=== PATIENT | female | born 1960 | race Caucasian/White ===

== ENCOUNTER 2016-10-29 13:46 | Inpatient (IN) ==
--- NOTE | 2016-10-29 16:19 | Orthopedic Consult Note ---
Date of Encounter: 10/29/16 Time of Encounter: 16:00 Assessment and Plan (1) Hip fracture Current Visit: No Status: Acute Patient's last PO intake was 3 beers around 11:15am this morning. Plan for right hip hemiarthroplasty tomorrow pending medical clearance. NPO after midnight tonight. Pain control per hospitalist. Qualifiers: Encounter type: initial encounter Fracture type: closed Laterality: right Qualified Code(s): S72.001A - Fracture of unspecified part of neck of right femur, initial encounter for closed fracture History of Present Illness Chief complaint: right hip pain HPI: Ms. Rao is a 56 year old female who fell this morning around 11am while she was trying to flip her mattress at home. She states she had instant pain in the right hip that has been shooting down leg and constant since that time. She was unable to bear any weight on that leg. States she does have tingling in the right leg as well. She proceeded to crawl to the kitchen and "downed" 3 beers to dull the pain and then called for the ambulance. She states she did hit her head but denies any loss of consciousness. Denies any chest pain, SOB, fever. Past Med Surg Social Fam HX - Past Medical History Medical history: COPD, other Psychiatric history: bipolar, depression - Past Surgical History Surgical History: - Social History Smoking Status: Current every day smoker Smokeless Tobacco Status: No Alcohol use: heavy Drug use: none - Family History Mother Living Status: Medications and Allergies Albuterol Sulfate [Albuterol Inhaler] 2 puff IH Q6HR PRN #1 [email or web address] 06/04/16 [Rx] Allergies No Known Allergies Allergy (Verified 10/29/16 12:27) All Systems Reviewed: A 10-system review of systems was performed and is negative for pertinent findings except as documented above in the HPI. - Constitutional Constitutional: as per HPI - Cardiovascular Cardiovascular: as per HPI - Respiratory Respiratory: as per HPI - Musculoskeletal Musculoskeletal: as per HPI Physical Exam - Constitutional Vitals: Temp Pulse Resp BP Pulse Ox 98.0 F 91 19 133/67 98 10/29/16 13:15 10/29/16 13:15 10/29/16 13:15 10/29/16 13:15 10/29/16 13:15 - Hip right Gait: antalgic ROM: extension: abnormal (No open wounds, ecchymosis or erythema noted to right hip, bilateral legs are almost fully flexed up at hip and knees and patient unable to extend legs without pain, significant pain with gentle palpation to the right hip anterior and lateral aspects. Neurovascularly intact, good dorsiflexion of toes, strong dorsal pedal pulse noted) Results - Labs Labs: All other labs normal. - Diagnostic results Hip x-ray: report reviewed, image reviewed Consult Discharge Plan - Plan Referrals: Kelly Rojas MD [Primary Care Provider] - - Attending Attestation Case and plan of care discussed with supervising physician who was available for all aspects of care.
[2016-10-29] MEDS ORDERED: Naloxone 0.4 MG/ML INJ IVP PRN (17:32)
[2016-10-29] MEDS ORDERED: Ondansetron 4 MG/2 ML VIAL IVP PRN (17:35)
[2016-10-29] MEDS ORDERED: Acetaminophen 325 MG TABLET PO PRN (17:35)
[2016-10-29] MEDS ORDERED: Mag Hydrox/Al Hydrox/Simeth 30 ML UDC PO PRN (17:35)
[2016-10-29] MEDS ORDERED: MOM Conc 10 ML UD.LIQ PO PRN (17:35)
[2016-10-29] MEDS ORDERED: *HR* LORazepam 2 MG/ML VIAL IVP PRN (17:36)
[2016-10-29] MEDS ORDERED: Albuterol 2.5 MG/3 ML NEBULIZER IH PRN (17:38)
[2016-10-29] MEDS ORDERED: MVI, adult with vitamin K 10 ML in 0.9 % Sodium Chloride 1,000 ML IVC ONE (17:39)
--- NOTE | 2016-10-29 17:46 | Internal Med History&Physical ---
<Robert Ramos P - Last Filed: 10/29/16 19:36> Date of Encounter: 10/29/16 Internal Medicine - H&P: HPI History of present illness: Ms. Rao is a 56 year old female Internal Medicine - H&P: Meds Albuterol Sulfate [Albuterol Inhaler] 2 puff IH Q6HR PRN #1 [email or web address] 06/04/16 [Rx] Allergies No Known Allergies Allergy (Verified 10/29/16 12:27) All Systems PM: A 10-system review of systems was performed and is negative for pertinent findings except as documented above in the HPI. - Constitutional Vitals: Temp Pulse Resp BP Pulse Ox 98.0 F 91 19 133/67 98 10/29/16 15:49 10/29/16 15:49 10/29/16 15:49 10/29/16 15:49 10/29/16 15:49 - Attending Attestation I examined this patient and my medical decision-making was reviewed with the PAINTER PLATE/PA/Advanced Practice Nurse/Resident Physician. I agree with the documented findings, disposition and treatment plan as described except to the extent set forth below. <Patricia Patel L - Last Filed: 10/29/16 20:32> Date of Encounter: 10/29/16 Time of Encounter: 17:25 Assessment and Plan (1) Hip fracture Current visit: No Status: Acute Pt fell at home this a.m. while trying to move her mattress. She fell onto her R side and was not able to bear weight immediately. Xray showed mildly displaced intertrochanterl fracture of the proximal R femur. Pt sits in position of comfort with knees drawn to chest. Pain control NPO after midnight for surgery in the a.m. Ortho was consulted by ER physician and has been seen by [facility]. Qualifiers: Encounter type: initial encounter Fracture type: closed Laterality: right Qualified Code(s): S72.001A - Fracture of unspecified part of neck of right femur, initial encounter for closed fracture (2) Fall Current visit: No Status: Chronic Plan as above. Fall precautions. Qualifiers: Encounter type: initial encounter Qualified Code(s): W19.XXXA - Unspecified fall, initial encounter (3) Hyponatremia Current visit: No Status: Acute Pt is being hydrated with 0.9NS and banana bag. Reassess labs in the a.m. (4) Back pain Current visit: No Status: Chronic Chronic back pain. Pain control as above. Qualifiers: Back pain location: low back pain Chronicity: chronic Back pain laterality: midline Qualified Code(s): M54.5 - Low back pain; G89.29 - Other chronic pain (5) COPD (chronic obstructive pulmonary disease) Current visit: No Status: Chronic Pt states that she has both emphysema and chronic bronchitis. No acute exacerbation at this time. Pt states that she is well controlled on home medications. Duonebs Albuterol nebs prn Monitor labs Continuous pulse ox. 02 prn, titrate to maintain pulse ox >92% Qualifiers: COPD type: emphysema Emphysema type: unspecified Qualified Code(s): J43.9 - Emphysema, unspecified (6) Suicidal ideations Current visit: Yes Status: Acute Pt states that she has nothing and has thought in the past that she would be better off . Denies plan. States that she has nothing. 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 1A consulted. (7) Alcoholism /alcohol abuse Current visit: Yes Status: Chronic Pt states that she drinks 3-4 beers daily and can go for 1 day without any, but no longer. Last drink prior to arrival in ED, immediately after fall. CIWA orders started. Internal Medicine - H&P: HPI Chief complaint: Fall, R hip fx Admitted From: Home Plans for Post Hospital Care: Transfer Inp Rehab Fac History of present illness: Ms. Rao is a 56 year old female who lives at home with her with a history of chronic back pain, COPD, ETOH abuse. Pt was trying to move her mattress today when it fell fdc onto the bed, knocking her over into the floor, onto her R side. Pt states that she felt instant pain and had to scoot on her bottom to the kitchen to her phone since she could not bear weight. Pt states that she drank 3 beers when she got to the kitchen before calling her . She drinks 3-4 beers daily for the last 30 years. During exam pt states that she feels hopeless and that she might be better off . She says, "I aint got nothing. I have no income, no license, no car, no family." Pt states that she has thought of killing herself before, but has no plan. 1A was consulted. Past Med Surg Social Fam HX - Past Medical History Medical history: COPD, other Psychiatric history: bipolar, depression - Past Surgical History Surgical History: - Social History Smoking Status: Current every day smoker Smokeless Tobacco Status: No Alcohol use: heavy Drug use: none - Family History Mother Living Status: All Systems PM: A 10-system review of systems was performed and is negative for pertinent findings except as documented above in the HPI. - Constitutional Constitutional: anorexia, falls, weakness, no chills, no excessive sweating, no fatigue, no fever(s) - EENT Eyes: no change in vision - Cardiovascular Cardiovascular ROS IM: no chest pain, no dyspnea, no dyspnea on exertion, no edema, no lightheadedness - Respiratory Respiratory: cough, no dyspnea, no dyspnea on exertion, no wheezing, no pain on inspiration, no chest congestion, no pain with cough - Gastrointestinal Gastrointestinal: no constipation, no diarrhea, no nausea, no vomiting - Genitourinary Genitourinary: no dysuria - Musculoskeletal Musculoskeletal ROS IM: back pain - Integumentary Integumentary IM: no rash - Constitutional Vitals: Temp Pulse Resp BP Pulse Ox 98.0 F 91 19 133/67 98 10/29/16 15:49 10/29/16 15:49 10/29/16 15:49 10/29/16 15:49 10/29/16 15:49 General appearance: Present: cooperative, A&O X 3, pleasant, underweight, answers questions appropriately - Head Head exam: Present: atraumatic, normal inspection - Eye Eye exam: Present: normal appearance, PERRL, conjuntiva pink. Absent: EOMI - ENT ENT exam: Present: mucous membranes moist, normal external ear exam - Neck Neck exam general surgery: Present: normal inspection. Absent: lymphadenopathy , tenderness - Respiratory Respiratory exam: Present: decreased breath sounds, CTAB. Absent: chest wall tenderness, respiratory distress, wheezes - Cardiovascular Cardiovascular exam: Present: RRR, +S1, +S2. Absent: bradycardia, tachycardia - GI/Abdominal GI/Abdominal exam: Present: hyperactive bowel sounds, soft. Absent: tenderness - Extremities Exam Extremities exam: Present: calf tenderness, normal capillary refill, normal inspection, tenderness, warm, radial pulses palpable and symetrical. Absent: cyanotic, mottling, pedal edema Additional comments: Pt has tenderness to R hip, rates 9/10 without movement. Pt has knees drawn to chest in position of comfort, +3 kenyatta pedal pulses.
[2016-10-29] MEDS: *HR* Morphine 2 MG/ML SYRINGE IVP PRN (18:03)
[2016-10-29] MEDS: Ipratropium/Albuterol Neb 3 ML IH SCH (21:36)
[2016-10-30] MEDS: Ipratropium/Albuterol Neb 3 ML IH SCH ×6 (00:06→20:03)
[2016-10-30] MEDS: 0.9 % Sodium Chloride 1,000 ML IVC SCH ×2 (02:29→17:01)
[2016-10-30 04:23] LABS: Basophils % 0.4 %; Eosinophils % 0.6 %; Hematocrit 29.6 % (35.3-44.9); Hemoglobin 9.6 g/dL (11.5-15.4); Immature Granulocytes % 0.4 % (0-4); Lymphocytes # 1.1 K/mcL (0.6-4.6); Lymphocytes % 19.4 %; Mean Corpuscular HGB Conc 32.4 g/dL (31.6-35.5); Mean Corpuscular Hemoglobin 26.7 pg (28.0-33.3); Mean Corpuscular Volume 82.5 fL (83.0-100.0); Mean Platelet Volume 9.2 fL (9.4-12.4); Monocytes # 0.9 K/mcL (0.0-1.3); Monocytes % 15.6 %; Neutrophils # 3.5 K/mcL (1.6-8.9); Platelet Count 215 K/mcL (140-400); Red Blood Count 3.59 M/mcL (3.82-4.97); Red Cell Distribution Width 17.1 % (11.5-14.5); Segmented Neutrophils % 63.6 %
[2016-10-30 04:40] LABS: BUN/Creatinine Ratio 10 (6-26); Carbon Dioxide 20 mEq/L (19-29); Chloride 102 mEq/L (98-109); Glucose 91 mg/dL (70-99); Osmolality,Calculated 267 (280-300); Potassium 3.7 mEq/L (3.5-4.5); Sodium 130 mEq/L (136-145); eGFR For African Americans > 60 (> 60); eGFR For Non-African Americans > 60 (> 60)
[2016-10-30 04:52] LABS: Blood Urea Nitrogen 5 mg/dL (7-20)
[2016-10-30 05:06] LABS: Platelet Estimate Normal (Normal)
[2016-10-30] MEDS: *HR* Morphine 2 MG/ML SYRINGE IVP PRN ×2 (08:30→13:21)
--- NOTE | 2016-10-30 09:20 | Internal Med Progress Note ---
Date of Encounter: 10/30/16 Time of Encounter: 09:16 - Assessment and plan (1) Hip fracture Current Visit: No Status: Acute Assessment and plan: Pt fell at home this a.m. while trying to move her mattress. She fell onto her R side and was not able to bear weight immediately. Xray showed mildly displaced intertrochanterl fracture of the proximal R femur. Pain control, given 2 mg of morphine IV now. denies any cardiac history, denies chest pain or sob. EXG and CXr reviewed..will order coags. rod has low C-P risk for the upcoming surgery. NPO after midnight for surgery in the a.m. will follow ortho recommendations DVT prophylaxis Qualifiers: Encounter type: initial encounter Fracture type: closed Laterality: right Qualified Code(s): S72.001A - Fracture of unspecified part of neck of right femur, initial encounter for closed fracture (2) Suicidal ideations Current Visit: Yes Status: Acute Assessment and plan: none at present (3) Alcoholism /alcohol abuse Current Visit: Yes Status: Chronic Assessment and plan: reports daily alcohol use will order beer to prevent withdrawal. CIWA protocol and ativan prn. (4) COPD (chronic obstructive pulmonary disease) Current Visit: No Status: Chronic Assessment and plan: not in exacebation is not on home oxygen will contnue nebs prn; Qualifiers: COPD type: emphysema Emphysema type: unspecified Qualified Code(s): J43.9 - Emphysema, unspecified (5) Fall Current Visit: No Status: Chronic Assessment and plan: reports that she fell and hit her head. will order CT head, no focal defecits. Qualifiers: Encounter type: initial encounter Qualified Code(s): W19.XXXA - Unspecified fall, initial encounter - Time Spent With Patient 25 - 35 minutes - Subjective Interval history: seen at the bedside, c/o pain at the hip, reports that she did not get anything for pain since last night denies n/v/ confusion, came after fall, does not have any alcohol withdrawal symptoms at this time. planned for sx tomm with ortho - Constitutional Vitals: Temp Pulse Resp BP Pulse Ox 98.4 F 90 16 136/77 95 10/30/16 06:37 10/30/16 06:37 10/30/16 07:33 10/30/16 06:37 10/30/16 07:33 General appearance: Present: cooperative, A&O X 3, pleasant, underweight, answers questions appropriately Exam: - Head Head exam: Present: atraumatic, normal inspection - Eye Eye exam: Present: normal appearance, PERRL, conjuntiva pink. Absent: EOMI - ENT ENT exam: Present: mucous membranes moist, normal external ear exam - Neck Neck exam general surgery: Present: normal inspection. Absent: lymphadenopathy , tenderness - Respiratory Respiratory exam: Present: decreased breath sounds, CTAB. Absent: chest wall tenderness, respiratory distress, wheezes - Cardiovascular Cardiovascular exam: Present: RRR, +S1, +S2. Absent: bradycardia, tachycardia - GI/Abdominal GI/Abdominal exam: Present: hyperactive bowel sounds, soft. Absent: tenderness - Extremities Exam Extremities exam: Present: tenderness right hip, no pedal edema, peripheral pulses symmetrical Absent: cyanotic, mottling, pedal edema Internal Medicine: Result - Labs CBC & Chem 7: 10/30/16 03:52 10/30/16 03:52 Labs: Short CBC 10/30/16 Range/Units 03:52 WBC 5.5 D (4.3-11.1) K/mcL Hgb 9.6 L (11.5-15.4) g/dL Hct 29.6 L (35.3-44.9) % Plt Count 215 (140-400) K/mcL Neutrophils # 3.5 (1.6-8.9) K/mcL BMP 10/30/16 03:52 Sodium 130 L Potassium 3.7 Chloride 102 Carbon Dioxide 20 BUN 5 L Creatinine 0.48 L Glucose 91 Calcium 8.0 L - VTE Documentation of Mechanical Device: Venous foot pump, device Consult Discharge Plan - Plan Referrals: Kelly Rojas MD [Primary Care Provider] -
[2016-10-30] MEDS: Beer can PO SCH ×4 (10:35→21:40)
--- NOTE | 2016-10-30 14:03 | Consult Note ---
Date of Encounter: 10/30/16 Time of Encounter: 13:58 Assessment & Recommendation (1) Alcoholism /alcohol abuse Current visit: Yes Status: Chronic Assessment & Recommendation: Patient may benefit from referral to outpatient counseling focused on alcohol dependence this can be arranged after discharge from the hospital. (2) Adjustment disorder with depressed mood Current visit: Yes Status: Acute Assessment & Recommendation: Patient is not suicidal she denies any intent to self-harm but she admits to feeling depressed at this time in anticipation of surgery and restriction of her mobility afterwards. I recommend a starting patient on a small dose of mirtazapine 15 mg at bedtime benefits and side effects were discussed with the patient and she is agreeable to try. Thank you for your consult and please address any questions History of Present Illness Patient: new to practice Requesting Physician: Arun Baez Reason for consult: Suicidal ideation History of present illness: Ms. Rao is a 56 year old female admitted to the hospital for evaluation treatment of right hip fracture. Patient is scheduled to have surgery. Patient has a history COPD hyponatremia on "abuse and psychiatric consultation was requested for evaluation of suicidal ideation. Patient expressed a sense of hopelessness to one of the nurses after having this fracture and was in extreme pain. But at this time patient continued to deny any intent to harm self and she really that she was having severe pain and feeling frustrated by restriction of her activity in the near future after surgery. Patient elected to stay active to me that she worked in the past as a tool lathe operator and as a "crack for many years that she also has a hobby doing crafts and sewing at home and she enjoyed that. She admits to smoking one and half pack of cigarettes a day and drinking 3-4 beers every day for the past 30 years she denied having any treatments or rehabilitation but she admits to having 2 DUIs the last one was in 2006. She lost her license and cannot drive anymore. She denies any history of treatment for depression and anxiety or counseling. CC: Arun Baez Past Med Surg Social Fam HX - Past Medical History Medical history: COPD, other - Past Psychiatric History Psychiatric history: Reports: no psych history - Past Surgical History Surgical History: - Social History Smoking Status: Current every day smoker Smokeless Tobacco Status: No Alcohol use: heavy Drug use: none - Family History Mother Living Status: Medications & Allergies Albuterol Sulfate [Albuterol Inhaler] 2 puff IH Q6HR PRN #1 [email or web address] 06/04/16 [Rx] Allergies No Known Allergies Allergy (Verified 10/29/16 12:27) Mental Status Exam Patient orientation: Yes Person, Yes Time, Yes Place Level of alertness: Alert Patient appearance: Appropriate, Disheveled, Mal-nourished, Thin Behavior: calm, cooperative Psychomotor activity: Normal Eye contact: Maintains Eye Contact Mood description: Depressed, Anxious, Other (Worry about the upcoming surgery) Affect description: congruent with mood, full range Speech pattern: Normal rate, Normal rhythm, Normal tone Speech volume: Normal Thought process: Linear, Goal Oriented Thought content: No Suicidal ideation, No Homicidal ideation, No Overt delusions Perceptual disturbances: No Auditory hallucinations, No Visual hallucinations Attention span: Capable of Focused Attention Memory description: Grossly Intact Patient reliability: Reliable Historian Intelligence estimate: Average Judgment: Limited Insight: Partial Results - Vital Signs Vital signs: Temp Pulse Resp BP Pulse Ox 98.4 F 81 18 137/70 96 10/30/16 11:08 10/30/16 11:08 10/30/16 11:07 10/30/16 11:08 10/30/16 11:08 - Labs Labs: Laboratory Last Values WBC 5.5 K/mcL (4.3-11.1) D 10/30/16 03:52 RBC 3.59 M/mcL (3.82-4.97) L 10/30/16 03:52 Hgb 9.6 g/dL (11.5-15.4) L 10/30/16 03:52 Hct 29.6 % (35.3-44.9) L 10/30/16 03:52 MCV 82.5 fL (83.0-100.0) L 10/30/16 03:52 MCH 26.7 pg (28.0-33.3) L 10/30/16 03:52 MCHC 32.4 g/dL (31.6-35.5) 10/30/16 03:52 RDW 17.1 % (11.5-14.5) H 10/30/16 03:52 Plt Count 215 K/mcL (140-400) 10/30/16 03:52 MPV 9.2 fL (9.4-12.4) L 10/30/16 03:52 Immature Gran % 0.4 % (0-4) 10/30/16 03:52 Seg Neutrophils % 63.6 % 10/30/16 03:52 Lymphocytes % 19.4 % 10/30/16 03:52 Monocytes % 15.6 % 10/30/16 03:52 Eosinophils % 0.6 % 10/30/16 03:52 Basophils % 0.4 % 10/30/16 03:52 Neutrophils # 3.5 K/mcL (1.6-8.9) 10/30/16 03:52 Lymphocytes # 1.1 K/mcL (0.6-4.6) 10/30/16 03:52 Monocytes # 0.9 K/mcL (0.0-1.3) 10/30/16 03:52 Eosinophils # 0.0 K/mcL (0.0-0.6) 10/30/16 03:52 Basophils # 0.0 K/mcL (0.0-0.2) 10/30/16 03:52 Platelet Estimate Normal (Normal) 10/30/16 03:52 Sodium 130 mEq/L (136-145) L 10/30/16 03:52 Potassium 3.7 mEq/L (3.5-4.5) 10/30/16 03:52 Chloride 102 mEq/L (98-109) 10/30/16 03:52 Carbon Dioxide 20 mEq/L (19-29) 10/30/16 03:52 BUN 5 mg/dL (7-20) L 10/30/16 03:52 Creatinine 0.48 mg/dL (0.57-1.11) L 10/30/16 03:52 Est GFR ( Amer) > 60 (> 60) 10/30/16 03:52 Est GFR (Non-Af Amer) > 60 (> 60) 10/30/16 03:52 BUN/Creatinine Ratio 10 (6-26) 10/30/16 03:52 Glucose 91 mg/dL (70-99) 10/30/16 03:52 Calculated Osmolality 267 (280-300) L 10/30/16 03:52 Calcium 8.0 mg/dL (8.6-10.8) L 10/30/16 03:52 - Impressions Impressions Head CT 10/30/16 09:30 IMPRESSION: No acute intracranial abnormality. D/ / Juany Browne Cha, MD / Juany Browne Cha, MD Interpreting Provider: Juany Browne Cha, MD Consult Discharge Plan - Plan Additional Instructions: From psychiatric standpoint patient is stable and no further consultation recommendations are necessary. She can be discharged when she is medically stable and there is no need to have a sitter. Referrals: Kelly Rojas MD [Primary Care Provider] -
[2016-10-30] MEDS ORDERED: *HR* HYDROmorphone (PF) 1 MG/ML SYRINGE IVP ONE (14:23)
--- NOTE | 2016-10-30 16:18 | Orthopedics Progress Note ---
Date of Encounter: 10/30/16 Time of Encounter: 16:00 - Assessment and Plan (1) Hip fracture Current Visit: No Status: Acute She was not medically cleared in time for surgery today. Plan for right hip hemiarthroplasty tomorrow. NPO after midnight tonight. Continue NWB. Continue pain control per hospitalist. Qualifiers: Encounter type: initial encounter Fracture type: closed Laterality: right Qualified Code(s): S72.001A - Fracture of unspecified part of neck of right femur, initial encounter for closed fracture Subjective Principal diagnosis: Right hip fracture Interval history: Patient states she feels a little better today and pain better controlled now. Denies any events overnight and denies and concerns at this time. Denies calf pain or N/T in legs. Afebrile, NV intact. Objective Vital signs: Vital Signs Temp Pulse Resp BP Pulse Ox 10/30/16 16:12 16 97 10/30/16 15:06 99 F 100 16 109/68 97 10/30/16 11:08 98.4 F 81 137/70 96 10/30/16 11:07 18 96 10/30/16 07:33 16 95 10/30/16 06:37 98.4 F 90 16 136/77 95 10/30/16 05:23 98.5 F 90 16 126/68 95 10/30/16 04:42 94 L 10/30/16 00:32 98.7 F 90 15 147/56 92 L 10/30/16 00:07 16 92 L 10/29/16 19:48 98.5 F 94 16 112/63 95 Intake and Output 10/30/16 10/30/16 10/30/16 07:59 15:59 23:59 Intake Total 240 / 240 Output Total 700 / 700 1000 / 1000 Balance -700 / -700 -760 / -760 Intake: Oral 240 / 240 Output: Catheter 700 / 700 1000 / 1000 Other: Meal Lunch Percent of Meal Consumed 50% - Labs CBC & BMP: 10/30/16 03:52 10/30/16 03:52 Labs: Abnormal lab results RBC 3.59 M/mcL (3.82-4.97) L 10/30/16 03:52 Hgb 9.6 g/dL (11.5-15.4) L 10/30/16 03:52 Hct 29.6 % (35.3-44.9) L 10/30/16 03:52 MCV 82.5 fL (83.0-100.0) L 10/30/16 03:52 MCH 26.7 pg (28.0-33.3) L 10/30/16 03:52 RDW 17.1 % (11.5-14.5) H 10/30/16 03:52 MPV 9.2 fL (9.4-12.4) L 10/30/16 03:52 Sodium 130 mEq/L (136-145) L 10/30/16 03:52 BUN 5 mg/dL (7-20) L 10/30/16 03:52 Creatinine 0.48 mg/dL (0.57-1.11) L 10/30/16 03:52 Calculated Osmolality 267 (280-300) L 10/30/16 03:52 Calcium 8.0 mg/dL (8.6-10.8) L 10/30/16 03:52 - VTE Documentation of Mechanical Device: Venous foot pump, device Consult Discharge Plan - Plan Additional Instructions: From psychiatric standpoint patient is stable and no further consultation recommendations are necessary. She can be discharged when she is medically stable and there is no need to have a sitter. Referrals: Kelly Rojas MD [Primary Care Provider] -
[2016-10-30] MEDS: *HR* HYDROmorphone 2 MG/ML SYRINGE IVP PRN (19:04)
--- NOTE | 2016-10-30 20:02 | Anesthesia Evaluation PreOp ---
Date of Encounter: 10/30/16 Time of Encounter: 20:02 - Past History Planned Operation: Reymundo-Hip Cardiac History: Other (ECHO 05/12/2015 - LVEF 60-65%, No SWMA, No PulmHtn) Pulmonary History: Smoker (1-2ppd x 40yrs), COPD (maintained on Albuterol) [employer] History: Other (BiPolar disorder/Adjustment disorder w/depressed mood. EtOH dependence: 6pk/daily - can't go longer than 1 day without EtOH. [facility] protocol initiated this hospitalization) Other Medical History: Other (HypoNatremia this admission) Anesthesia History: No Prior Anesthetic Complications, Past Anesthesia (C- section) Alcohol Use: heavy (approximately 6pk/daily x 30yrs) Drug use: none Medications and Allergies Albuterol Sulfate [Albuterol Inhaler] 2 puff IH Q6HR PRN #1 hfa.aer.ad 06/04/16 [Rx] Allergies No Known Allergies Allergy (Verified 10/29/16 12:27) - Meds/Allergy Pre-op Review Medications Reviewed: Yes Allergies Reviewed: Yes Beta Blockers on Current Med List: No Anesthesia Results - Labs 10/30/16 03:52 10/30/16 03:52 Laboratory Results WBC 5.5 K/mcL (4.3-11.1) D 10/30/16 03:52 RBC 3.59 M/mcL (3.82-4.97) L 10/30/16 03:52 Hgb 9.6 g/dL (11.5-15.4) L 10/30/16 03:52 Hct 29.6 % (35.3-44.9) L 10/30/16 03:52 MCV 82.5 fL (83.0-100.0) L 10/30/16 03:52 MCH 26.7 pg (28.0-33.3) L 10/30/16 03:52 MCHC 32.4 g/dL (31.6-35.5) 10/30/16 03:52 RDW 17.1 % (11.5-14.5) H 10/30/16 03:52 Plt Count 215 K/mcL (140-400) 10/30/16 03:52 MPV 9.2 fL (9.4-12.4) L 10/30/16 03:52 Immature Gran % 0.4 % (0-4) 10/30/16 03:52 Seg Neutrophils % 63.6 % 10/30/16 03:52 Lymphocytes % 19.4 % 10/30/16 03:52 Monocytes % 15.6 % 10/30/16 03:52 Eosinophils % 0.6 % 10/30/16 03:52 Basophils % 0.4 % 10/30/16 03:52 Neutrophils # 3.5 K/mcL (1.6-8.9) 10/30/16 03:52 Lymphocytes # 1.1 K/mcL (0.6-4.6) 10/30/16 03:52 Monocytes # 0.9 K/mcL (0.0-1.3) 10/30/16 03:52 Eosinophils # 0.0 K/mcL (0.0-0.6) 10/30/16 03:52 Basophils # 0.0 K/mcL (0.0-0.2) 10/30/16 03:52 Platelet Estimate Normal (Normal) 10/30/16 03:52 Sodium 130 mEq/L (136-145) L 10/30/16 03:52 Potassium 3.7 mEq/L (3.5-4.5) 10/30/16 03:52 Chloride 102 mEq/L (98-109) 10/30/16 03:52 Carbon Dioxide 20 mEq/L (19-29) 10/30/16 03:52 BUN 5 mg/dL (7-20) L 10/30/16 03:52 Creatinine 0.48 mg/dL (0.57-1.11) L 10/30/16 03:52 Est GFR ( Amer) > 60 (> 60) 10/30/16 03:52 Est GFR (Non-Af Amer) > 60 (> 60) 10/30/16 03:52 BUN/Creatinine Ratio 10 (6-26) 10/30/16 03:52 Glucose 91 mg/dL (70-99) 10/30/16 03:52 Calculated Osmolality 267 (280-300) L 10/30/16 03:52 Calcium 8.0 mg/dL (8.6-10.8) L 10/30/16 03:[address] 10/30/16 09:30 IMPRESSION: No acute intracranial abnormality. D/ / Juany Browne Cha, MD / Juany Browne Cha, MD Interpreting Provider: Juany Browne Cha, MD - Imaging EKG: image reviewed ([10/29/16] 90 SR, possible LAE, possible RV conduction delay ) Anesthesia Exam Vital Signs Temp Pulse Resp BP Pulse Ox 10/30/16 19:02 98.6 F 96 16 102/59 97 10/30/16 16:12 16 97 10/30/16 15:06 99 F 100 16 109/68 97 10/30/16 11:08 98.4 F 81 137/70 96 10/30/16 11:07 18 96 10/30/16 07:33 16 95 10/30/16 06:37 98.4 F 90 16 136/77 95 10/30/16 05:23 98.5 F 90 16 126/68 95 10/30/16 04:42 94 L 10/30/16 00:32 98.7 F 90 15 147/56 92 L 10/30/16 00:07 16 92 L Intake and Output 10/30/16 10/30/16 10/30/16 07:59 15:59 23:59 Intake Total 1240 / 1240 Output Total 700 / 700 1000 / 1000 Balance -700 / -700 240 / 240 Intake: IV Fluids 1000 / 1000 0.9 % Sodium Chloride 1, 1000 / 1000 000 ML @ 75 mls/hr IVC . [id number] [facility] Rx#: [id number] Oral 240 / 240 Output: Catheter 700 / 700 1000 / 1000 Other: Meal Lunch Percent of Meal Consumed 50% Height: 5'6" Weight: 94# BMI = 15 - HEENT Pupil (Motor): Pupils equal, EOMI Mallampati: II Teeth: Edentulous Oral Opening: Greater than 3 - [employer] LOC: Oriented [employer] Motor: Normal RUE, Normal LUE, Normal RLE, Normal LLE, Normal Face [employer] Sensory: Normal: RUE, LUE, RLE, LLE, Face - Cardiac Rhythm: Regular Murmur: None - Pulmonary Breath Sounds: bilateral Clear Respiratory Effort: Symmetrical Anesthesia Assess/Plan ASA Score: 3 (COPD, Malnutrition/underweight, Bipolar/Anxiety/Depression, Smoker , EtOH abuse/dependency) Modified Dixie Scale for Level of Consciousness: Cooperative, oriented, and tranquil Anesthetic Plan: General Monitoring Plan: Standard Monitors Recovery Plan: PACU Anes Supervising Prov Stmt: Pt seen/evaluated, R&B discussed, questions answered and consent obtained. Marsha Murillo MD
[2016-10-30] MEDS ORDERED: Mirtazapine 15 MG TABLET PO SCH (21:00)
[2016-10-31] MEDS: Ipratropium/Albuterol Neb 3 ML IH SCH ×7 (00:09→23:58)
[2016-10-31] MEDS ORDERED: *HR* OxyCODONE Immed Rel 5 MG TABLET PO ONE (01:22)
[2016-10-31] MEDS ORDERED: *HR* Metoprolol 5 MG/5 ML VIAL IVP ONE (01:23)
[2016-10-31] MEDS: 0.9 % Sodium Chloride 1,000 ML IVC SCH (06:37)
[2016-10-31] MEDS: *HR* HYDROmorphone 2 MG/ML SYRINGE IVP PRN ×2 (06:38→11:24)
[2016-10-31 06:49] LABS: INR 1.2; Prothrombin Time 13.1 Seconds (9.4-12.1)
[2016-10-31 07:02] LABS: BUN/Creatinine Ratio 8 (6-26); Blood Urea Nitrogen 4 mg/dL (7-20); Calcium 7.9 mg/dL (8.6-10.8); Carbon Dioxide 22 mEq/L (19-29); Chloride 105 mEq/L (98-109); Glucose 82 mg/dL (70-99); Osmolality,Calculated 272 (280-300); Potassium 3.7 mEq/L (3.5-4.5); Sodium 133 mEq/L (136-145); eGFR For African Americans > 60 (> 60); eGFR For Non-African Americans > 60 (> 60)
[2016-10-31 07:43] LABS: Basophils % 0.7 %; Eosinophils # 0.1 K/mcL (0.0-0.6); Hematocrit 27.4 % (35.3-44.9); Hemoglobin 8.7 g/dL (11.5-15.4); Immature Granulocytes % 0.2 % (0-4); Lymphocytes # 1.7 K/mcL (0.6-4.6); Lymphocytes % 28.8 %; Mean Corpuscular HGB Conc 31.8 g/dL (31.6-35.5); Mean Corpuscular Hemoglobin 26.4 pg (28.0-33.3); Monocytes % 16.4 %; Neutrophils # 3.1 K/mcL (1.6-8.9); Platelet Count 205 K/mcL (140-400); Red Cell Distribution Width 17.7 % (11.5-14.5); Segmented Neutrophils % 52.9 %
[2016-10-31] MEDS: Beer can PO SCH ×2 (08:17→11:58)
[2016-10-31] MEDS ORDERED: *HR* Metoprolol 5 MG/5 ML VIAL IVP PRN ×2 (09:38→17:24)
[2016-10-31] MEDS ORDERED: *HR* Propofol 200 MG/20 ML VIAL IVP ONE (13:46)
[2016-10-31] MEDS ORDERED: *HR* FentaNYL (PF) 100 MCG/2 ML VIAL ONE (13:46)
[2016-10-31] MEDS ORDERED: *HR* Midazolam HCl 2 MG/2 ML VIAL ONE (13:46)
[2016-10-31] MEDS ORDERED: Lidocaine -MPF 2% 2 ML VIAL ONE (13:48)
[2016-10-31] MEDS ORDERED: *HR* Succinylcholine 200 MG/10 ML VIAL IVP ONE (13:48)
[2016-10-31] MEDS ORDERED: Dexamethasone 4 MG/ML VIAL ONE ×2 (13:48→13:53)
[2016-10-31] MEDS ORDERED: Ondansetron 4 MG/2 ML VIAL ONE (13:48)
[2016-10-31] MEDS ORDERED: *HR* Rocuronium Bromide 50 MG/5 ML VIAL ONE (13:48)
[2016-10-31] MEDS ORDERED: Lidocaine -MPF 4% 5 ML AMPUL ONE (13:49)
[2016-10-31] MEDS ORDERED: *HR* Phenylephrine 10 MG/ML VIAL ONE (14:35)
[2016-10-31] MEDS ORDERED: *HR* HYDROmorphone 2 MG/ML SYRINGE ONE (14:57)
[2016-10-31] MEDS ORDERED: *HR* Morphine 2 MG/ML SYRINGE IVP PRN (15:54)
[2016-10-31] MEDS ORDERED: Ondansetron 4 MG/2 ML VIAL IVP ONE (15:54)
[2016-10-31] MEDS ORDERED: Neostigmine Methylsulfate 3 MG/3 ML SYRINGE ONE (15:58)
--- NOTE | 2016-10-31 16:31 | Operative Note ---
Date of procedure: 10/31/16 Pre-op diagnosis: Right hip femoral neck fracture Post-op diagnosis: same Procedure: Right hip hemiarthroplasty Implants: [place] Omnifit Anesthesia: DANA Surgeon: Frederick Roberson Windows Desktop Support: Rosanna Winters Estimated blood loss (cc): 100 Specimen: To pathology Condition: stable Disposition: PACU Procedure in Detail: The patient received IV antibiotics in the holding area. She was brought to the operating room, sign in was performed. The patient underwent general anesthesia on the hospital bed. She was then transferred to the OR table in supine position. The patient was positioned in the left lateral decubitus position, supported by pelvic supports. Bony prominences of the left lower extremity were well padded. An axillary roll was in positioned. The right lower extremity was then prepped and draped in usual sterile fashion. A timeout was performed. The level of the greater trochanter was palpated, a 10 cm curvilinear posterior incision was made, followed by Bovie dissection. The hip abductor was sharply split in line with its fibers with a curved Berumen scissors, incising the fascia over the gluteus beryl also. The Charnley retractors were then positioned, making sure all not to go too deeply, to protect the sciatic nerve. The bursa over the greater trochanter was excised with Bovie electrocautery. The left hip was then internally rotated, putting the short external rotators on stretch. These were taken down from the insertion point with the Bovie cautery, starting from less of a trochanter and going approximately to the femoral neck. The capsule along the posterior femoral neck and head was then T' ed, giving exposure to the fractured femoral head/neck. This was a very low fracture involving most of the neck. The greater trochanter also had several small splits in the bone would be very soft. None of the fracture lines propagated below the level of the lesser trochanter. The head was then removed with a corkscrew, and cutting the ligamentum teres. The head was measured and a size 45 mm diameter was chosen. The acetabulum was washed out of any bone fragments, and a trial head was placed giving a good fit. Next, the exposed fractured femoral neck was cleaned up with a rongeur, a binder and box builder was then used to remove the lateral bone. The canal finder was then inserted. We then started broaching with a press-fit broaches from the Patience tray. It was decided to use a cemented system as the patient's bone was very soft and she has thin cortices. Starting with the smallest broach, up to cemented 5, then moving up to a cemented 6, keeping the appropriate anteversion. Finally used a cemented size 7. The trial stem was well fixed with no toggling. The broach was then removed. The canal was irrigated out and suctioned. The canal was then prepared with brushes and irrigating it out. A small cement restrictor was then placed some technique. We mixed 2 bags of the [place] medium viscosity cement( with gentamicin) in standard technique. The canal was dried out well. Then pressure injected cement into the canal. The [employer] Omnifit cement stem was then opened, using a 127 degree neck angle and a size 7 cement stem, the implant was positioned in place, making sure to keep the correct anteversion. Once well positioned, we trialed with a 45 mm diameter trial head, and in neutral stem. Stability was checked along with leg length, it was felt that the leg length was short. I then trialed with a +5 mm neck length. The leg lengths felt fairly equal, the patient had good extension of the left lower extremity, is able to flex the hip, adduct, and internally rotated up to 60 degrees before the hip started subluxing out. I also trialed a +10 mm neck length but could not reduce the joint. It was decided to stay with the +5, as we had great stability. The trial components removed. The acetabulum was copiously irrigated with normal saline once again making sure it was well cleaned out. Next the 45 mm unipolar head was opened with a + 5 neck length. This assembled and tapped in place. The hip was reduced, and stability was checked once again. We had good stability. The capsule was then closed with 2-0 FiberWire figure of 8 sutures. The leg was placed on Berumen stand, and the short external rotators were reattached to the bone using the FiberWire. The tensor fascia along with the gluteus fascia was closed with FiberWire [id number] sutures. Once again irrigating the wound with pulse lavage. The deep fat layer was closed with 2-0 Vicryl, subcutaneous tissues with 3-0 Vicryl simple sutures, and finally the skin was closed with thiago. Sterile dressings were applied. A hip abduction wedge was in place between the patient's legs. She was then rolled over into supine position and transferred back onto the hospital bed where she was extubated and taken to the recovery room in stable condition.
--- NOTE | 2016-10-31 16:52 | Internal Med Progress Note ---
Date of Encounter: 10/31/16 Time of Encounter: 16:48 - Assessment and plan (1) Hip fracture Current Visit: No Status: Acute Assessment and plan: Pt fell at home this a.m. while trying to move her mattress. She fell onto her R side and was not able to bear weight immediately. Xray showed mildly displaced intertrochanterl fracture of the proximal R femur. Pain control, changed to dialudid 2 mg iv q4h denies any cardiac history, denies chest pain or sob. surgery today with ortho. will follow ortho recommendations DVT prophylaxis Qualifiers: Encounter type: initial encounter Fracture type: closed Laterality: right Qualified Code(s): S72.001A - Fracture of unspecified part of neck of right femur, initial encounter for closed fracture (2) Suicidal ideations Current Visit: Yes Status: Acute Assessment and plan: none at present (3) Alcoholism /alcohol abuse Current Visit: Yes Status: Chronic Assessment and plan: reports daily alcohol use will order beer to prevent withdrawal. CIWA protocol and ativan prn. (4) COPD (chronic obstructive pulmonary disease) Current Visit: No Status: Chronic Assessment and plan: not in exacebation is not on home oxygen will contnue nebs prn; Qualifiers: COPD type: emphysema Emphysema type: unspecified Qualified Code(s): J43.9 - Emphysema, unspecified (5) Fall Current Visit: No Status: Chronic Assessment and plan: reports that she fell and hit her head. CT head with no acute pathology, no focal defecits. Qualifiers: Encounter type: initial encounter Qualified Code(s): W19.XXXA - Unspecified fall, initial encounter - Time Spent With Patient 25 - 35 minutes - Subjective Interval history: seen at the bedside, c/o pain at the hip, reports that its much better than yesterday. denies n/v/ confusion, came after fall, does not have any alcohol withdrawal symptoms at this time. planned for sx today with ortho - Constitutional Vitals: Temp Pulse Resp BP Pulse Ox 98.4 F 97 18 127/81 94 L 10/31/16 10:10 10/31/16 10:10 10/31/16 11:09 10/31/16 10:10 10/31/16 11:09 General appearance: Present: cooperative, A&O X 3, pleasant, underweight, answers questions appropriately Exam: - Head Head exam: Present: atraumatic, normal inspection - Eye Eye exam: Present: normal appearance, PERRL, conjuntiva pink. Absent: EOMI - ENT ENT exam: Present: mucous membranes moist, normal external ear exam - Neck Neck exam general surgery: Present: normal inspection. Absent: lymphadenopathy , tenderness - Respiratory Respiratory exam: Present: decreased breath sounds, CTAB. Absent: chest wall tenderness, respiratory distress, wheezes - Cardiovascular Cardiovascular exam: Present: RRR, +S1, +S2. Absent: bradycardia, tachycardia - GI/Abdominal GI/Abdominal exam: Present: normal bowel sounds, soft. Absent: tenderness - Extremities Exam Extremities exam: Present: tenderness right hip, no pedal edema, peripheral pulses symmetrical Absent: cyanotic, mottling, pedal edema Internal Medicine: Result - Labs CBC & Chem 7: 10/31/16 06:06 10/31/16 06:06 Labs: Short CBC 10/31/16 Range/Units 06:06 WBC 5.9 (4.3-11.1) K/mcL Hgb 8.7 L (11.5-15.4) g/dL Hct 27.4 L (35.3-44.9) % Plt Count 205 (140-400) K/mcL Neutrophils # 3.1 (1.6-8.9) K/mcL BMP 10/31/16 06:06 Sodium 133 L Potassium 3.7 Chloride 105 Carbon Dioxide 22 BUN 4 L Creatinine 0.48 L Glucose 82 Calcium 7.9 L - ABG Interpretation ABG results: PT/INR, D-dimer PT 13.1 Seconds (9.4-12.1) H 10/31/16 06:06 - VTE Documentation of Mechanical Device: Venous foot pump, device Consult Discharge Plan - Plan Additional Instructions: From psychiatric standpoint patient is stable and no further consultation recommendations are necessary. She can be discharged when she is medically stable and there is no need to have a sitter. Referrals: Kelly Rojas MD [Primary Care Provider] -
--- NOTE | 2016-10-31 17:22 | Anesthesia Evaluation Post Op ---
Date of Encounter: 10/31/16 Time of Encounter: 17:22 - Vital Signs Vital Signs: Last Vital Signs Temp 100.5 F H 10/31/16 16:56 Pulse 87 10/31/16 17:16 Resp 16 10/31/16 17:16 BP 114/70 10/31/16 17:16 Pulse Ox 94 L 10/31/16 17:16 - Lungs Lungs: Clear Ascult./Percussion - Airway Airway: Non-obstructed - Cardiovascular Regular Rate - Mental Status Mental Status: Alert & Oriented, Answers Appropriately - Pain Pain Scale: 2 - Nausea Vomiting Nausea Vomiting: Not Present - Hydration Hydration: Ice chips - Discharge PostOp Status: Transfer Patient to floor
[2016-10-31] MEDS ORDERED: Mag Hydrox/Al Hydrox/Simeth 30 ML UDC PO PRN (17:24)
[2016-10-31] MEDS ORDERED: Naloxone 0.4 MG/ML INJ IVP PRN (17:24)
[2016-10-31] MEDS ORDERED: Ondansetron 4 MG/2 ML VIAL IVP PRN (17:24)
[2016-10-31] MEDS ORDERED: Ringers Solution, Lactated 1,000 ML IVC SCH (17:24)
[2016-10-31] MEDS ORDERED: *HR* HYDROmorphone (PF) 1 MG/ML SYRINGE IVP PRN (17:24)
[2016-10-31] MEDS ORDERED: Albuterol 2.5 MG/3 ML NEBULIZER IH PRN (17:24)
[2016-10-31] MEDS ORDERED: traMADol 50 MG TABLET PO PRN (17:24)
[2016-10-31] MEDS ORDERED: Sennosides 8.6 MG TABLET PO PRN (17:24)
[2016-10-31] MEDS ORDERED: MOM Conc 10 ML UD.LIQ PO PRN (17:24)
[2016-10-31] MEDS ORDERED: *HR* LORazepam 2 MG/ML VIAL IVP PRN (17:24)
[2016-10-31] MEDS ORDERED: Temazepam 15 MG CAPSULE PO PRN (17:24)
[2016-10-31] MEDS: Ascorbic Acid 500 MG TABLET PO SCH (18:19)
[2016-10-31] MEDS: Mirtazapine 15 MG TABLET PO SCH (20:57)
[2016-10-31] MEDS: ceFAZolin 2,000 MG in D5% in Water 100 ML IVPB SCH (23:00)
[2016-11-01] MEDS: Ipratropium/Albuterol Neb 3 ML IH SCH ×6 (04:07→23:16)
[2016-11-01] MEDS: *HR* OxyCODONE Immed Rel 5 MG TABLET PO PRN (05:39)
[2016-11-01] MEDS: ceFAZolin 2,000 MG in D5% in Water 100 ML IVPB SCH (06:53)
[2016-11-01 07:12] LABS: Hematocrit 24.4 % (35.3-44.9); Hemoglobin 7.7 g/dL (11.5-15.4)
[2016-11-01 07:25] LABS: BUN/Creatinine Ratio 9 (6-26); Calcium 7.9 mg/dL (8.6-10.8); Carbon Dioxide 24 mEq/L (19-29); Chloride 102 mEq/L (98-109); Glucose 132 mg/dL (70-99); Osmolality,Calculated 275 (280-300); Potassium 3.2 mEq/L (3.5-4.5); Sodium 133 mEq/L (136-145); eGFR For African Americans > 60 (> 60); eGFR For Non-African Americans > 60 (> 60)
[2016-11-01] MEDS ORDERED: 0.9 % Sodium Chloride 250 ML IVC PRN (07:25)
[2016-11-01 07:30] LABS: Blood Urea Nitrogen 5 mg/dL (7-20)
[2016-11-01] MEDS: Multivit/Ca/Min/Fe/FA 1 TAB TABLET PO SCH (07:59)
[2016-11-01] MEDS: Ascorbic Acid 500 MG TABLET PO SCH ×2 (07:59→16:55)
[2016-11-01] MEDS: Beer can PO SCH ×3 (08:01→16:55)
--- NOTE | 2016-11-01 13:08 | Orthopedics Progress Note ---
Date of Encounter: 11/01/16 Time of Encounter: 12:50 - Assessment and Plan (1) Hip fracture Current Visit: No Status: Acute POD#1 s/p right hip hemiarthroplasty Continue WBAT. Dressings to be changed tomorrow. Continue pain control per hospitalist. Will follow up with Rosanna Winters PA-C in [facility] on 11/15/16 at 10:15am. Qualifiers: Encounter type: initial encounter Fracture type: closed Laterality: right Qualified Code(s): S72.001A - Fracture of unspecified part of neck of right femur, initial encounter for closed fracture Subjective Principal diagnosis: Right hip fracture Interval history: No events overnight. Patient states she has a lot of pain right now in the hip. Nurse just transferred patient to chair for lunch. Currently receiving 1 unit of blood. Denies calf pain or N/T in legs. Afebrile, NV intact. Objective Vital signs: Vital Signs Temp Pulse Resp BP Pulse Ox 11/01/16 11:15 98.2 F 98 18 98/65 98 11/01/16 11:00 97.8 F 103 15 98/64 96 11/01/16 06:49 98.2 F 87 16 99/58 96 11/01/16 04:55 98.7 F 99 16 97/61 92 L 11/01/16 04:08 18 92 L 11/01/16 00:15 98.2 F 96 16 112/67 96 10/31/16 20:36 18 98 10/31/16 20:35 98.0 F 100 16 102/60 10/31/16 19:34 97.9 F 98 14 103/62 97 10/31/16 18:25 98.9 F 100 16 92/61 96 10/31/16 17:55 99.3 F 99 16 92/61 95 10/31/16 17:24 98.5 F 114 15 105/62 94 L 10/31/16 17:16 87 16 114/70 94 L 10/31/16 17:06 95 16 137/62 95 10/31/16 16:56 100.5 F H 86 16 117/64 92 L 10/31/16 16:46 94 16 140/73 93 L 10/31/16 16:36 98 16 133/78 98 10/31/16 16:26 99.1 F 97 16 137/73 96 Intake and Output 10/31/16 11/01/16 11/01/16 23:59 07:59 15:59 Intake Total 100 / 100 0 / 0 Output Total 100 / 100 1800 / 1800 Balance -100 / -100 -1700 / -1700 0 / 0 Intake: IV Fluids 100 / 100 Ancef 2,000 MG In 100 / 100 Dextrose 5% 100 ML @ 200 mls/hr IVPB Q8H [facility] Rx#: [id number] Blood Product 0 / 0 Rbcs Leuko Poor As-1 0 / 0 Unit [id number] Output: Estimated Blood Loss 100 / 100 Catheter 1800 / 1800 Incision: clean and dry (dressings clean, dry, intact. no drainage on dressings) - Labs CBC & BMP: 11/01/16 06:20 11/01/16 06:20 Labs: Abnormal lab results RBC 3.30 M/mcL (3.82-4.97) L 10/31/16 06:06 Hgb 7.7 g/dL (11.5-15.4) L 11/01/16 06:20 Hct 24.4 % (35.3-44.9) L 11/01/16 06:20 MCH 26.4 pg (28.0-33.3) L 10/31/16 06:06 RDW 17.7 % (11.5-14.5) H 10/31/16 06:06 MPV 9.0 fL (9.4-12.4) L 10/31/16 06:06 PT 13.1 Seconds (9.4-12.1) H 10/31/16 06:06 Sodium 133 mEq/L (136-145) L 11/01/16 06:20 Potassium 3.2 mEq/L (3.5-4.5) L 11/01/16 06:20 BUN 5 mg/dL (7-20) L 11/01/16 06:20 Creatinine 0.54 mg/dL (0.57-1.11) L 11/01/16 06:20 Glucose 132 mg/dL (70-99) H 11/01/16 06:20 POC Glucose 97 (58-89) H 10/31/16 11:25 Calculated Osmolality 275 (280-300) L 11/01/16 06:20 Calcium 7.9 mg/dL (8.6-10.8) L 11/01/16 06:20 - VTE Documentation of Mechanical Device: Venous foot pump, device Consult Discharge Plan - Plan Additional Instructions: From psychiatric standpoint patient is stable and no further consultation recommendations are necessary. She can be discharged when she is medically stable and there is no need to have a sitter. Referrals: Kelly Rojas MD [Primary Care Provider] -
--- NOTE | 2016-11-01 16:27 | Internal Med Progress Note ---
Date of Encounter: 11/01/16 Time of Encounter: 16:25 - Assessment and plan (1) Hip fracture Current Visit: No Status: Acute Assessment and plan: POD#1 Pain adequately controlled. will follow ortho recommendations DVT prophylaxis bedside rehab, planned to go to home with HH. Qualifiers: Encounter type: initial encounter Fracture type: closed Laterality: right Qualified Code(s): S72.001A - Fracture of unspecified part of neck of right femur, initial encounter for closed fracture (2) Suicidal ideations Current Visit: Yes Status: Acute Assessment and plan: none at present (3) Alcoholism /alcohol abuse Current Visit: Yes Status: Chronic Assessment and plan: reports daily alcohol use will order beer to prevent withdrawal. CIWA protocol and ativan prn. (4) COPD (chronic obstructive pulmonary disease) Current Visit: No Status: Chronic Assessment and plan: not in exacebation is not on home oxygen will contnue nebs prn; Qualifiers: COPD type: emphysema Emphysema type: unspecified Qualified Code(s): J43.9 - Emphysema, unspecified (5) Fall Current Visit: No Status: Chronic Assessment and plan: reports that she fell and hit her head. CT head with no acute pathology, no focal defecits. Qualifiers: Encounter type: initial encounter Qualified Code(s): W19.XXXA - Unspecified fall, initial encounter - Time Spent With Patient 25 - 35 minutes - Subjective Interval history: seen at the bedside, c/o pain at the hip, s/p total hip replacement, POD #1 denies n/v/ confusion, came after fall, does not have any alcohol withdrawal symptoms at this time. orto following for post OP care. - Constitutional Vitals: Temp Pulse Resp BP Pulse Ox 98.0 F 110 18 135/73 97 11/01/16 14:45 11/01/16 14:45 11/01/16 14:45 11/01/16 14:45 11/01/16 14:45 General appearance: Present: cooperative, A&O X 3, pleasant, underweight, answers questions appropriately Exam: - Head Head exam: Present: atraumatic, normal inspection - Eye Eye exam: Present: normal appearance, PERRL, conjuntiva pink. Absent: EOMI - ENT ENT exam: Present: mucous membranes moist, normal external ear exam - Neck Neck exam general surgery: Present: normal inspection. Absent: lymphadenopathy , tenderness - Respiratory Respiratory exam: Present: decreased breath sounds, CTAB. Absent: chest wall tenderness, respiratory distress, wheezes - Cardiovascular Cardiovascular exam: Present: RRR, +S1, +S2. Absent: bradycardia, tachycardia - GI/Abdominal GI/Abdominal exam: Present: normal bowel sounds, soft. Absent: tenderness - Extremities Exam Extremities exam: Present: tenderness right hip, no pedal edema, peripheral pulses symmetrical Absent: cyanotic, mottling, pedal edema Internal Medicine: Result - Labs CBC & Chem 7: 11/01/16 06:20 11/01/16 06:20 Labs: Short CBC 11/01/16 Range/Units 06:20 Hgb 7.7 L (11.5-15.4) g/dL Hct 24.4 L (35.3-44.9) % BMP 11/01/16 06:20 Sodium 133 L Potassium 3.2 L Chloride 102 Carbon Dioxide 24 BUN 5 L Creatinine 0.54 L Glucose 132 H Calcium 7.9 L - ABG Interpretation ABG results: PT/INR, D-dimer PT 13.1 Seconds (9.4-12.1) H 10/31/16 06:06 - Impressions Impressions Hip X-Ray 10/31/16 17:02 IMPRESSION: Status post right hip hemiarthroplasty for treatment of a varus angulated comminuted fracture of proximal right femur. D/ / 10/31/2016 17:15:31 Ian Eid MD / [facility] Interpreting Provider: Ian Eid MD - VTE Documentation of Mechanical Device: Venous foot pump, device Consult Discharge Plan - Plan Additional Instructions: From psychiatric standpoint patient is stable and no further consultation recommendations are necessary. She can be discharged when she is medically stable and there is no need to have a sitter. Referrals: Kelly Rojas MD [Primary Care Provider] -
--- NOTE | 2016-11-01 17:20 | Electrocardiograph Report ---
[address] [place] [address] Test Date: 2016-10-31 Pat Name: Pam Rao Department: 114 Room: [facility] Gender: F Bit Setter: : 1960 Requested By: Arun Baez Order Number: [id number] Reading MD: Karen Andres Measurements Intervals [place] Rate: 93 P: 59 WV: 173 QRS: 62 QRSD: 86 T: 56 QT: 328 QTc: 379 Interpretive Statements SINUS RHYTHM SEPTAL MYOCARDIAL INFARCTION, OF INDETERMINATE AGE Electronically Signed On 11-01-2016 17:18:51 EST by Karen Andres
[2016-11-01] MEDS: *HR* OxyCODONE/APAP 5/325 TABLET PO PRN (21:33)
[2016-11-01] MEDS: Mirtazapine 15 MG TABLET PO SCH (21:34)
[2016-11-01] MEDS: *HR* Enoxaparin 30 MG/0.3 ML SYRINGE SQ SCH (21:34)
[2016-11-02] MEDS: Ipratropium/Albuterol Neb 3 ML IH SCH ×5 (03:44→20:05)
[2016-11-02 04:58] LABS: Hematocrit 28.4 % (35.3-44.9)
[2016-11-02 05:02] LABS: Hemoglobin 9.5 g/dL (11.5-15.4)
[2016-11-02 05:15] LABS: BUN/Creatinine Ratio 12 (6-26); Blood Urea Nitrogen 6 mg/dL (7-20); Calcium 7.9 mg/dL (8.6-10.8); Carbon Dioxide 22 mEq/L (19-29); Chloride 105 mEq/L (98-109); Glucose 89 mg/dL (70-99); Osmolality,Calculated 275 (280-300); Potassium 3.9 mEq/L (3.5-4.5); Sodium 134 mEq/L (136-145); eGFR For African Americans > 60 (> 60); eGFR For Non-African Americans > 60 (> 60)
[2016-11-02] MEDS: *HR* Enoxaparin 30 MG/0.3 ML SYRINGE SQ SCH ×2 (05:50→17:27)
[2016-11-02] MEDS: *HR* OxyCODONE/APAP 5/325 TABLET PO PRN (05:50)
[2016-11-02] MEDS: Multivit/Ca/Min/Fe/FA 1 TAB TABLET PO SCH (09:08)
[2016-11-02] MEDS: Ascorbic Acid 500 MG TABLET PO SCH ×2 (09:08→17:27)
[2016-11-02] MEDS: Beer can PO SCH ×3 (09:08→17:51)
[2016-11-02] MEDS: *HR* OxyCODONE Immed Rel 5 MG TABLET PO PRN ×2 (09:11→17:29)
--- NOTE | 2016-11-02 12:21 | Internal Med Progress Note ---
Date of Encounter: 11/02/16 Time of Encounter: 12:19 - Assessment and plan (1) Hip fracture Current Visit: No Status: Acute Assessment and plan: POD#2 Pain adequately controlled. will follow ortho recommendations DVT prophylaxis bedside rehab, awaiting social work for dc plan. Qualifiers: Encounter type: initial encounter Fracture type: closed Laterality: right Qualified Code(s): S72.001A - Fracture of unspecified part of neck of right femur, initial encounter for closed fracture (2) Suicidal ideations Current Visit: Yes Status: Acute Assessment and plan: none at present (3) Alcoholism /alcohol abuse Current Visit: Yes Status: Chronic Assessment and plan: reports daily alcohol use will order beer to prevent withdrawal. CIWA protocol and ativan prn. (4) COPD (chronic obstructive pulmonary disease) Current Visit: No Status: Chronic Assessment and plan: not in exacebation is not on home oxygen will contnue nebs prn; Qualifiers: COPD type: emphysema Emphysema type: unspecified Qualified Code(s): J43.9 - Emphysema, unspecified (5) Fall Current Visit: No Status: Chronic Assessment and plan: reports that she fell and hit her head. CT head with no acute pathology, no focal defecits. Qualifiers: Encounter type: initial encounter Qualified Code(s): W19.XXXA - Unspecified fall, initial encounter - Time Spent With Patient 25 - 35 minutes - Subjective Interval history: seen at the bedside, c/o pain at the hip, s/p total hip replacement, POD #2 denies n/v/ confusion, came after fall, does not have any alcohol withdrawal symptoms at this time. orto following for post OP care. - Constitutional Vitals: Temp Pulse Resp BP Pulse Ox 98.8 F 97 18 130/77 98 11/02/16 06:21 11/02/16 06:21 11/02/16 10:48 11/02/16 10:48 11/02/16 10:48 General appearance: Present: cooperative, A&O X 3, pleasant, underweight, answers questions appropriately Exam: - Head Head exam: Present: atraumatic, normal inspection - Eye Eye exam: Present: normal appearance, PERRL, conjuntiva pink. Absent: EOMI - ENT ENT exam: Present: mucous membranes moist, normal external ear exam - Neck Neck exam general surgery: Present: normal inspection. Absent: lymphadenopathy , tenderness - Respiratory Respiratory exam: Present: decreased breath sounds, CTAB. Absent: chest wall tenderness, respiratory distress, wheezes - Cardiovascular Cardiovascular exam: Present: RRR, +S1, +S2. Absent: bradycardia, tachycardia - GI/Abdominal GI/Abdominal exam: Present: normal bowel sounds, soft. Absent: tenderness - Extremities Exam Extremities exam: Present: tenderness right hip, no pedal edema, peripheral pulses symmetrical Absent: cyanotic, mottling, pedal edema Internal Medicine: Result - Labs CBC & Chem 7: 11/02/16 04:23 11/02/16 04:23 Labs: Short CBC 11/02/16 Range/Units 04:23 Hgb 9.5 L D (11.5-15.4) g/dL Hct 28.4 L (35.3-44.9) % BMP 11/02/16 04:23 Sodium 134 L Potassium 3.9 Chloride 105 Carbon Dioxide 22 BUN 6 L Creatinine 0.49 L Glucose 89 Calcium 7.9 L - ABG Interpretation ABG results: PT/INR, D-dimer PT 13.1 Seconds (9.4-12.1) H 10/31/16 06:06 - VTE Documentation of Mechanical Device: Venous foot pump, device Consult Discharge Plan - Plan Additional Instructions: From psychiatric standpoint patient is stable and no further consultation recommendations are necessary. She can be discharged when she is medically stable and there is no need to have a sitter. Referrals: Kelly Rojas MD [Primary Care Provider] -
--- NOTE | 2016-11-02 13:03 | Orthopedics Progress Note ---
Date of Encounter: 11/02/16 Time of Encounter: 13:01 - Assessment and Plan (1) Hip fracture Current Visit: No Status: Acute Postoperative day #2, status post right hip arthroplasty, stable Discharge planning, preferably to rehabilitation based on PT recommendations DVT prophylaxis: 2 more weeks of Lovenox, followed by 4 weeks of aspirin Continue OT/PT Continue hip precautions Qualifiers: Encounter type: initial encounter Fracture type: closed Laterality: right Qualified Code(s): S72.001A - Fracture of unspecified part of neck of right femur, initial encounter for closed fracture Subjective Principal diagnosis: Right hip fracture Interval history: Patient has complaints of mild soreness to her right hip Patient has been ambulating with therapy Right hip: Dressings are clean dry and intact Bilateral calves are soft and nontender The risk intact distally Objective Vital signs: Vital Signs Temp Pulse Resp BP Pulse Ox 11/02/16 10:48 18 130/77 98 11/02/16 08:18 16 98 11/02/16 08:17 98 11/02/16 06:21 98.8 F 97 18 130/77 95 11/02/16 04:36 98.3 F 99 20 123/73 98 11/02/16 03:44 18 96 11/02/16 00:19 97.7 F 96 18 123/69 98 11/01/16 23:16 18 98 11/01/16 20:15 18 94 L 11/01/16 19:45 99.1 F 108 18 90/56 96 11/01/16 17:09 14 99 11/01/16 16:45 98.1 F 107 18 134/77 96 11/01/16 14:45 98.0 F 110 18 135/73 97 11/01/16 14:30 97.8 F 110 17 94/49 97 11/01/16 13:45 97.8 F 110 17 94/49 Intake and Output 11/01/16 11/02/16 11/02/16 23:59 07:59 15:59 Intake Total 950 / 950 240 / 240 Output Total 200 / 200 700 / 700 Balance 750 / 750 -700 / -700 240 / 240 Intake: Oral 600 / 600 240 / 240 Blood Product 350 / 350 Rbcs Leuko Poor As-1 350 / 350 Unit [id number] Output: Urine 200 / 200 700 / 700 Other: Meal Dinner Breakfast Percent of Meal Consumed 75% 100% Incision: clean and dry - Labs CBC & BMP: 11/02/16 04:23 11/02/16 04:23 Labs: Abnormal lab results RBC 3.30 M/mcL (3.82-4.97) L 10/31/16 06:06 Hgb 9.5 g/dL (11.5-15.4) L D 11/02/16 04:23 Hct 28.4 % (35.3-44.9) L 11/02/16 04:23 MCH 26.4 pg (28.0-33.3) L 10/31/16 06:06 RDW 17.7 % (11.5-14.5) H 10/31/16 06:06 MPV 9.0 fL (9.4-12.4) L 10/31/16 06:06 PT 13.1 Seconds (9.4-12.1) H 10/31/16 06:06 Sodium 134 mEq/L (136-145) L 11/02/16 04:23 BUN 6 mg/dL (7-20) L 11/02/16 04:23 Creatinine 0.49 mg/dL (0.57-1.11) L 11/02/16 04:23 POC Glucose 97 (58-89) H 10/31/16 11:25 Calculated Osmolality 275 (280-300) L 11/02/16 04:23 Calcium 7.9 mg/dL (8.6-10.8) L 11/02/16 04:23 - VTE Documentation of Mechanical Device: Venous foot pump, device Consult Discharge Plan - Plan Additional Instructions: From psychiatric standpoint patient is stable and no further consultation recommendations are necessary. She can be discharged when she is medically stable and there is no need to have a sitter. Referrals: Kelly Rojas MD [Primary Care Provider] -
[2016-11-02] MEDS: Mirtazapine 15 MG TABLET PO SCH (21:24)
[2016-11-03] MEDS: Ipratropium/Albuterol Neb 3 ML IH SCH ×5 (04:15→20:28)
[2016-11-03] MEDS: *HR* Enoxaparin 30 MG/0.3 ML SYRINGE SQ SCH ×2 (05:39→17:42)
[2016-11-03] MEDS: *HR* OxyCODONE Immed Rel 5 MG TABLET PO PRN ×3 (08:35→21:17)
[2016-11-03] MEDS: Multivit/Ca/Min/Fe/FA 1 TAB TABLET PO SCH (08:36)
[2016-11-03] MEDS: Ascorbic Acid 500 MG TABLET PO SCH ×2 (08:36→16:17)
[2016-11-03] MEDS: Beer can PO SCH ×3 (09:16→17:42)
--- NOTE | 2016-11-03 12:19 | Internal Med Progress Note ---
Date of Encounter: 11/03/16 Time of Encounter: 12:18 - Assessment and plan (1) Hip fracture Current Visit: No Status: Acute Assessment and plan: POD#2 Pain adequately controlled. will follow ortho recommendations DVT prophylaxis bedside rehab, awaiting social work for dc plan. Qualifiers: Encounter type: initial encounter Fracture type: closed Laterality: right Qualified Code(s): S72.001A - Fracture of unspecified part of neck of right femur, initial encounter for closed fracture (2) Suicidal ideations Current Visit: Yes Status: Acute Assessment and plan: none at present (3) Alcoholism /alcohol abuse Current Visit: Yes Status: Chronic Assessment and plan: reports daily alcohol use will order beer to prevent withdrawal. CIWA protocol and ativan prn. (4) COPD (chronic obstructive pulmonary disease) Current Visit: No Status: Chronic Assessment and plan: not in exacebation is not on home oxygen will contnue nebs prn; Qualifiers: COPD type: emphysema Emphysema type: unspecified Qualified Code(s): J43.9 - Emphysema, unspecified (5) Fall Current Visit: No Status: Chronic Assessment and plan: reports that she fell and hit her head. CT head with no acute pathology, no focal defecits. Qualifiers: Encounter type: initial encounter Qualified Code(s): W19.XXXA - Unspecified fall, initial encounter - Time Spent With Patient 25 - 35 minutes - Subjective Interval history: seen at the bedside, c/o pain at the hip, s/p total hip replacement, POD #2 denies n/v/ confusion, came after fall, does not have any alcohol withdrawal symptoms at this time. orto following for post OP care. possibel dc tomm to ECF. - Constitutional Vitals: Temp Pulse Resp BP Pulse Ox 97.9 F 93 16 146/77 98 11/03/16 10:59 11/03/16 10:59 11/03/16 11:06 11/03/16 10:59 11/03/16 11:06 General appearance: Present: cooperative, A&O X 3, pleasant, underweight, answers questions appropriately Exam: - Head Head exam: Present: atraumatic, normal inspection - Eye Eye exam: Present: normal appearance, PERRL, conjuntiva pink. Absent: EOMI - ENT ENT exam: Present: mucous membranes moist, normal external ear exam - Neck Neck exam general surgery: Present: normal inspection. Absent: lymphadenopathy , tenderness - Respiratory Respiratory exam: Present: decreased breath sounds, CTAB. Absent: chest wall tenderness, respiratory distress, wheezes - Cardiovascular Cardiovascular exam: Present: RRR, +S1, +S2. Absent: bradycardia, tachycardia - GI/Abdominal GI/Abdominal exam: Present: normal bowel sounds, soft. Absent: tenderness - Extremities Exam Extremities exam: Present: tenderness right hip, no pedal edema, peripheral pulses symmetrical Absent: cyanotic, mottling, pedal edema Internal Medicine: Result - Labs CBC & Chem 7: 11/02/16 04:23 11/02/16 04:23 - ABG Interpretation ABG results: PT/INR, D-dimer PT 13.1 Seconds (9.4-12.1) H 10/31/16 06:06 - VTE Documentation of Mechanical Device: Venous foot pump, device Consult Discharge Plan - Plan Additional Instructions: From psychiatric standpoint patient is stable and no further consultation recommendations are necessary. She can be discharged when she is medically stable and there is no need to have a sitter. Referrals: Kelly Rojas MD [Primary Care Provider] -
--- NOTE | 2016-11-03 15:05 | Orthopedics Progress Note ---
Date of Encounter: 11/03/16 Time of Encounter: 15:00 - Assessment and Plan (1) Hip fracture Current Visit: No Status: Acute Postoperative day #3, status post right hip arthroplasty, stable Discharge planning, preferably to rehabilitation based on PT recommendations DVT prophylaxis: 2 more weeks of Lovenox, followed by 4 weeks of aspirin Continue OT/PT Continue hip precautions We will check a CBC today to make sure it has not increase in white count Qualifiers: Encounter type: initial encounter Fracture type: closed Laterality: right Qualified Code(s): S72.001A - Fracture of unspecified part of neck of right femur, initial encounter for closed fracture Subjective Principal diagnosis: Right hip fracture Interval history: Patient has complaints of mild soreness to her right hip Patient has been ambulating with therapy Right hip: Wound is clean dry and intact Mild induration with some erythema, no warmth Bilateral calves are soft and nontender The risk intact distally Objective Vital signs: Vital Signs Temp Pulse Resp BP Pulse Ox 11/03/16 11:06 16 98 11/03/16 10:59 97.9 F 93 18 146/77 94 L 11/03/16 06:26 98.9 F 89 18 124/77 95 11/03/16 04:00 97.8 F 107 16 140/71 96 11/03/16 00:00 97.7 F 95 17 145/70 96 11/02/16 20:05 16 100 11/02/16 20:00 98.1 F 99 17 144/75 97 11/02/16 16:31 16 100 11/02/16 15:24 98.6 F 110 18 173/79 96 Intake and Output 11/02/16 11/03/16 11/03/16 23:59 07:59 15:59 Intake Total 480 / 480 340 / 340 Output Total 900 / 900 700 / 700 Balance -420 / -420 -360 / -360 Intake: Oral 480 / 480 340 / 340 Output: Urine 900 / 900 700 / 700 Other: Meal Dinner Lunch Percent of Meal Consumed 50% 90% Stool Size Moderate Stool Consistency formed Stool Color Brown Green # Voids 1 1 # Bowel Movements 1 1 Incision: red, swollen, clean and dry - Labs CBC & BMP: 11/02/16 04:23 11/02/16 04:23 Labs: Abnormal lab results RBC 3.30 M/mcL (3.82-4.97) L 10/31/16 06:06 Hgb 9.5 g/dL (11.5-15.4) L D 11/02/16 04:23 Hct 28.4 % (35.3-44.9) L 11/02/16 04:23 MCH 26.4 pg (28.0-33.3) L 10/31/16 06:06 RDW 17.7 % (11.5-14.5) H 10/31/16 06:06 MPV 9.0 fL (9.4-12.4) L 10/31/16 06:06 PT 13.1 Seconds (9.4-12.1) H 10/31/16 06:06 Sodium 134 mEq/L (136-145) L 11/02/16 04:23 BUN 6 mg/dL (7-20) L 11/02/16 04:23 Creatinine 0.49 mg/dL (0.57-1.11) L 11/02/16 04:23 POC Glucose 97 (58-89) H 10/31/16 11:25 Calculated Osmolality 275 (280-300) L 11/02/16 04:23 Calcium 7.9 mg/dL (8.6-10.8) L 11/02/16 04:23 - VTE Documentation of Mechanical Device: Venous foot pump, device Consult Discharge Plan - Plan Additional Instructions: From psychiatric standpoint patient is stable and no further consultation recommendations are necessary. She can be discharged when she is medically stable and there is no need to have a sitter. Referrals: Kelly Rojas MD [Primary Care Provider] -
[2016-11-03 15:16] LABS: Basophils % 0.3 %; Eosinophils # 0.1 K/mcL (0.0-0.6); Hematocrit 29.9 % (35.3-44.9); Hemoglobin 9.6 g/dL (11.5-15.4); Immature Granulocytes % 0.5 % (0-4); Lymphocytes # 1.7 K/mcL (0.6-4.6); Mean Corpuscular HGB Conc 32.1 g/dL (31.6-35.5); Mean Corpuscular Volume 84.2 fL (83.0-100.0); Mean Platelet Volume 9.2 fL (9.4-12.4); Monocytes # 0.7 K/mcL (0.0-1.3); Monocytes % 10.3 %; Platelet Count 256 K/mcL (140-400); Red Blood Count 3.55 M/mcL (3.82-4.97); Red Cell Distribution Width 17.6 % (11.5-14.5); Segmented Neutrophils % 60.9 %
[2016-11-03] MEDS: Mirtazapine 15 MG TABLET PO SCH (21:13)
[2016-11-04] MEDS: Ipratropium/Albuterol Neb 3 ML IH SCH ×5 (00:31→15:29)
[2016-11-04] MEDS: *HR* Enoxaparin 30 MG/0.3 ML SYRINGE SQ SCH (06:27)
[2016-11-04] MEDS: Multivit/Ca/Min/Fe/FA 1 TAB TABLET PO SCH (08:53)
[2016-11-04] MEDS: Ascorbic Acid 500 MG TABLET PO SCH (08:53)
[2016-11-04] MEDS: Beer can PO SCH ×2 (08:54→13:24)
--- NOTE | 2016-11-04 09:58 | Discharge Summary ---
Date of Encounter: 11/04/16 Time of Encounter: 09:55 - Discharge Diagnosis (1) Hip fracture Priority: Primary Status: Acute Qualifiers: Encounter type: initial encounter Fracture type: closed Laterality: right Qualified Code(s): S72.001A - Fracture of unspecified part of neck of right femur, initial encounter for closed fracture (2) Suicidal ideations Priority: Primary Status: Acute (3) Alcoholism /alcohol abuse Priority: Secondary Status: Chronic (4) COPD (chronic obstructive pulmonary disease) Priority: Secondary Status: Chronic Qualifiers: COPD type: emphysema Emphysema type: unspecified Qualified Code(s): J43.9 - Emphysema, unspecified (5) Fall Priority: Primary Status: Chronic Qualifiers: Encounter type: initial encounter Qualified Code(s): W19.XXXA - Unspecified fall, initial encounter - Discharge Medications Prescriptions: OxyCODONE/APAP 5/325 [Percocet 5/325 MG] 1 each PO Q4HR PRN #30 tablet PRN Reason: Moderate Pain 4-6 Enoxaparin [Lovenox] 30 mg SQ Q12HCO 14 Days Aspirin 81 mg PO DAILY 28 Days Ferrous Sulfate 325 mg PO BIDWM #60 tablet Home Medications: Albuterol Sulfate [Albuterol Inhaler] 2 puff IH Q6HR PRN #1 hfa.[email or web address] 06/04/16 [Rx] Aspirin 81 mg PO DAILY 28 Days 11/04/16 [Rx] Enoxaparin [Lovenox] 30 mg SQ Q12HCO 14 Days 11/04/16 [Rx] Ferrous Sulfate 325 mg PO BIDWM #60 tablet 11/04/16 [Rx] OxyCODONE/APAP 5/325 [Percocet 5/325 MG] 1 each PO Q4HR PRN #30 tablet 11/04/16 [Rx] Allergies/Adverse Reactions: Allergies No Known Allergies Allergy (Verified 10/29/16 12:27) Date of admission: 10/29/16 15:46 Primary care physician: Kelly Rojas Consults: 10/29/16 16:10 Consult to Nutrition [CONS] Routine Comment: Consulting Provider: NUTRITION Reason for Dietary Consult: Diet Education Consult to Head Wrestling Coach [CONS] Routine Reason for SW Consult: D/C ALCOHOL RESOURCES 10/29/16 17:40 Consult to Psychiatry [CONS] Routine Consulting Provider: Psychiatry [place] Reason for Consult: SI Time Notified: 17:41 Call Completed: Yes 10/31/16 17:24 Consult to Nurse Navigator [CONS] Routine Comment: ortho navigator Consult to Occupational Therapy [CONS] Routine Comment: Evaluate, develop and implement POC Consult to Physical Therapy [CONS] Routine Comment: Evaluate, develop and implement POC Consult to Head Wrestling Coach [CONS] Routine Reason for SW Consult: post op joint replacement RT Post Op Consult [CONS] Routine Discharging clinician: Arun Baez Anticipated date of discharge: 11/04/16 - Patient Status Disposition: Transfer Inpatient Rehab Fac Condition: Fair Functional capacity at discharge: uses cane/walker Overall status at discharge: patient is back to baseline - Discharge Instructions Follow Up With: Kelly Rojas MD [Primary Care Provider] - Kendell Eli MD [Partnered Physician] - Additional Instructions: From psychiatric standpoint patient is stable and no further consultation recommendations are necessary. She can be discharged when she is medically stable and there is no need to have a sitter. DAILY DRESSING CHANGE OF GAUZE AND MEDIPORE TO RIGHT HIP. PATIENT IS WEIGHT BEARING TOLERATED WITH A WALKER. ABD WEDGE TO BE USED WHENEVER IN BED. - Diet and Activity Activity: as per physical therapy Interval History: Ms. Rao is a 56 year old female who fell this morning around 11am while she was trying to flip her mattress at home. She states she had instant pain in the right hip that has been shooting down leg and constant since that time. She was unable to bear any weight on that leg. States she does have tingling in the right leg as well. She proceeded to crawl to the kitchen and "downed" 3 beers to dull the pain and then called for the ambulance. She states she did hit her head but denies any loss of consciousness. Denies any chest pain, SOB, fever. work up at ED showed Right hip femoral neck fracture . ortho was consulted. she uderwent Right hip hemiarthroplasty with Dr. Roberson. Post op care was managed by ortho. Bedside PT OT was consulted, she has been discharged today in stable condition to inpatient rehabilitation. Hospital course: Ms. Rao is a 56 year old female Time spent discussing smoking cessation with patient: more than 10 minutes - Time Spent with Patient Total time spent providing and/or coordinating discharge services: Greater than 30 minutes - Constitutional Vitals: Temp Pulse Resp BP Pulse Ox 97.9 F 97 16 117/64 99 11/04/16 06:51 11/04/16 06:51 11/04/16 06:51 11/04/16 06:51 11/04/16 06:51 General appearance: Present: cooperative, A&O X 3, pleasant, underweight, answers questions appropriately Exam: - Head Head exam: Present: atraumatic, normal inspection - Eye Eye exam: Present: normal appearance, PERRL, conjuntiva pink. Absent: EOMI - ENT ENT exam: Present: mucous membranes moist, normal external ear exam - Neck Neck exam general surgery: Present: normal inspection. Absent: lymphadenopathy , tenderness - Respiratory Respiratory exam: Present: decreased breath sounds, CTAB. Absent: chest wall tenderness, respiratory distress, wheezes - Cardiovascular Cardiovascular exam: Present: RRR, +S1, +S2. Absent: bradycardia, tachycardia - GI/Abdominal GI/Abdominal exam: Present: hyperactive bowel sounds, soft. Absent: tenderness - Extremities Exam Extremities exam: Present: normal capillary refill, normal inspection, warm, radial pulses palpable and symetrical. Absent: cyanotic, mottling, pedal edema edal pulses. - VTE Documentation of Mechanical Device: Venous foot pump, device
--- NOTE | 2016-11-04 10:00 | Physician Discharge Referral ---
ExtendedCare Referral Info Transfer To: [facility] Provider in Charge: Arun powers Institutional Level of Care: Intermediate - MR - Diagnosis (1) Hip fracture Status: Acute (2) Suicidal ideations Status: Acute (3) Alcoholism /alcohol abuse Status: Chronic (4) COPD (chronic obstructive pulmonary disease) Status: Chronic (5) Fall Status: Chronic - Transfer Medications Prescriptions: OxyCODONE/APAP 5/325 [Percocet 5/325 MG] 1 each PO Q4HR PRN #30 tablet PRN Reason: Moderate Pain 4-6 Enoxaparin [Lovenox] 30 mg SQ Q12HCO 14 Days Aspirin 81 mg PO DAILY 28 Days Ferrous Sulfate 325 mg PO BIDWM #60 tablet Home Medications: Albuterol Sulfate [Albuterol Inhaler] 2 puff IH Q6HR PRN #1 hfa.aer.ad 06/04/16 [Rx] Aspirin 81 mg PO DAILY 28 Days 11/04/16 [Rx] Enoxaparin [Lovenox] 30 mg SQ Q12HCO 14 Days 11/04/16 [Rx] Ferrous Sulfate 325 mg PO BIDWM #60 tablet 11/04/16 [Rx] OxyCODONE/APAP 5/325 [Percocet 5/325 MG] 1 each PO Q4HR PRN #30 tablet 11/04/16 [Rx] Allergies/Adverse Reactions: Allergies No Known Allergies Allergy (Verified 10/29/16 12:27) - Respiratory Orders Smoking Cessation: Smoking cessation has been advised. For more information, call the [place] Tobacco Quit Line at 7-080-AIRO-NOW. - Advance Directives Code Status: Full Code - Mobility Orders Ambulate - Rehabiliation Orders Rehab Potential: Fair Rehab Orders: Evaluation for Physical Therapy, Evaluation for Occupational Therapy - Diet Orders Regular CERTIFICATION: I certify that the transfer of the above named patient to an Extended Care Facility is necessary for the continuing treatment of the diagnosis listed. The above information is true and accurate reflection of patient's current condition. Confidential - Redisclosure prohibited without a patient's written consent.
[2016-11-04 11:08] VITALS: BP 153/79
--- NOTE | 2016-11-04 14:15 | Orthopedics Progress Note ---
Date of Encounter: 11/04/16 Time of Encounter: 13:15 - Assessment and Plan (1) Hip fracture Current Visit: No Status: Acute POD#4 s/p right hip hemiarthroplasty Continue WBAT with walker. States she is going home today and home health set up to do therapy there. Continue pain control per hospitalist. Will follow up with Rosanna Winters PA-C in [facility] on 11/15/16 at 10:15am. Qualifiers: Encounter type: initial encounter Fracture type: closed Laterality: right Qualified Code(s): S72.001A - Fracture of unspecified part of neck of right femur, initial encounter for closed fracture Subjective Principal diagnosis: Right hip fracture Interval history: No events overnight. Pain is improved. Feeling much better and ready to go home. States therapy had her up and walking with walker well. Denies calf pain or N/T in legs. Afebrile, NV intact. Objective Vital signs: Vital Signs Temp Pulse Resp BP Pulse Ox 11/04/16 11:08 97.7 F 87 16 153/79 98 11/04/16 06:51 97.9 F 97 16 117/64 99 11/04/16 04:59 16 97 11/04/16 03:34 97.9 F 87 16 116/67 96 11/04/16 00:31 16 97 11/03/16 23:39 98.9 F 87 14 109/66 98 11/03/16 20:45 98.7 F 92 15 125/65 99 11/03/16 20:28 18 96 11/03/16 15:40 98.2 F 98 18 125/77 93 L Intake and Output 11/03/16 11/04/16 11/04/16 23:59 07:59 15:59 Intake Total 930 / 930 300 / 300 360 / 360 Output Total 300 / 300 500 / 500 Balance 630 / 630 -200 / -200 360 / 360 Intake: Oral 930 / 930 300 / 300 360 / 360 Output: Urine 300 / 300 500 / 500 Other: Meal Dinner Breakfast Percent of Meal Consumed 90% 90% Stool Size Small Small Stool Consistency soft soft Stool Characteristics Normal for Patient Stool Color Brown Brown # Voids 1 1 1 # Bowel Movements 1 1 Incision: clean and dry (dressings intact and clean with no drainage, improving ROM of hip and knee, good dorsiflexion of foot, no calf pain with palpation. NV intact.) - Labs CBC & BMP: 11/03/16 15:08 11/02/16 04:23 Labs: Abnormal lab results RBC 3.55 M/mcL (3.82-4.97) L 11/03/16 15:08 Hgb 9.6 g/dL (11.5-15.4) L 11/03/16 15:08 Hct 29.9 % (35.3-44.9) L 11/03/16 15:08 MCH 27.0 pg (28.0-33.3) L 11/03/16 15:08 RDW 17.6 % (11.5-14.5) H 11/03/16 15:08 MPV 9.2 fL (9.4-12.4) L 11/03/16 15:08 PT 13.1 Seconds (9.4-12.1) H 10/31/16 06:06 Sodium 134 mEq/L (136-145) L 11/02/16 04:23 BUN 6 mg/dL (7-20) L 11/02/16 04:23 Creatinine 0.49 mg/dL (0.57-1.11) L 11/02/16 04:23 POC Glucose 97 (58-89) H 10/31/16 11:25 Calculated Osmolality 275 (280-300) L 11/02/16 04:23 Calcium 7.9 mg/dL (8.6-10.8) L 11/02/16 04:23 - VTE Documentation of Mechanical Device: Venous foot pump, device Consult Discharge Plan - Plan Additional Instructions: From psychiatric standpoint patient is stable and no further consultation recommendations are necessary. She can be discharged when she is medically stable and there is no need to have a sitter. DAILY DRESSING CHANGE OF GAUZE AND MEDIPORE TO RIGHT HIP. PATIENT IS WEIGHT BEARING TOLERATED WITH A WALKER. ABD WEDGE TO BE USED WHENEVER IN BED. Referrals: Kendell Eli MD [Partnered Physician] - Kelly Rojas MD [Primary Care Provider] - Prescriptions: OxyCODONE/APAP 5/325 [Percocet 5/325 MG] 1 each PO Q4HR PRN #30 tablet PRN Reason: Moderate Pain 4-6 Enoxaparin [Lovenox] 30 mg SQ Q12HCO 14 Days Aspirin 81 mg PO DAILY 28 Days Ferrous Sulfate 325 mg PO BIDWM #60 tablet
== END 2016-11-04 16:22 | DRG 301 ==
LOC: 3NENU 15:46
PROVIDERS: ADMIT Internal Medicine; ATTEND Internal Medicine Endocrinology, Diabetes & Metabolism

== ENCOUNTER 2018-05-03 12:53 | Inpatient (IN) ==
[2018-05-03] MEDS ORDERED: Naloxone 0.4 MG/ML INJ IVP PRN (15:33)
[2018-05-03] MEDS ORDERED: Ipratropium/Albuterol Neb 3 ML IH PRN (15:41)
[2018-05-03] MEDS ORDERED: 0.9 % Sodium Chloride 1,000 ML IVC SCH (15:45)
--- NOTE | 2018-05-03 15:50 | Internal Med History&Physical ---
Date of Encounter: 05/03/18 Time of Encounter: 16:00 Internal Medicine - H&P: HPI Chief complaint: Left hip fracture s/p fall History of present illness: Ms. Rao is a 57 year old female with pmh of COPD, osteoporosis, hip fracture presenting s/p fall yesterday. Patient notes she was in the bathroom when she must hasve tripped and fallen over a cord. She says she was on the floor for about 30minutes before she was found by a friend. She was able to get up in pain and ambulate with a walker. she woke up this am in severe pain and that's why she called EMS. She denies any other acute symptoms such as chest pain, shortness of breath, nausea or vomiting. At the ED, a hip xray showed a left hip fracture, and also a low sodium of 112 and CK of 1600. She is being admitted for further management of her hip fracture and rhabdomyolysis and hyponatremia Past Med Surg Social Fam HX - Past Medical History Medical history: COPD, other Additional medical history: anemia Psychiatric history: no psych history - Past Surgical History Surgical History: Additional surgical history: back surgery - Social History Smoking Status: Current every day smoker Smokeless Tobacco Status: No Alcohol use: heavy Drug use: none - Family History Mother Living Status: Internal Medicine - H&P: Meds Alendronate Sodium [Fosamax] 70 mg PO TH 05/03/18 [History] Calcium Carbonate/Vitamin D3 [Oyster Shell Calcium-Vit D Tab] 1 tab PO TID 05/03 [History] 3 Allergy/AdvReac Type Severity Reaction Status Date / Time No Known Allergies Allergy Verified 05/03/18 16:01 All Systems PM: A 10-system review of systems was performed and is negative for pertinent findings except as documented above in the HPI. - Constitutional Constitutional: no chills, no fever(s), no night sweats - EENT Eyes: no change in vision, no discharge, no pain, no photophobia Ears: no ear discharge, no ear pain, no tinnitus Nose, mouth and throat: no dysphagia, no nasal discharge, no neck pain, no sore throat - Cardiovascular Cardiovascular ROS IM: no chest pain, no diaphoresis, no dyspnea, no lightheadedness, no palpitations, no syncope - Respiratory Respiratory: no cough, no dyspnea, no wheezing, no excessive phlegm production - Gastrointestinal Gastrointestinal: no abdominal pain, no diarrhea, no hematemesis, no hematochezia, no melena, no nausea, no vomiting - Genitourinary Genitourinary: no change in urinary stream, no dysuria, no flank pain, no hematuria - Musculoskeletal Musculoskeletal ROS IM: joint swelling, no numbness, no tingling Additional comments: left hip pain - Integumentary Integumentary IM: no rash, no unusual bruising - Neurological Neurological ROS: no confusion, no convulsions, no focal weakness, no numbness, no tingling, no tremor(s) - Hematologic/Lymphatic Hematologic/Lymphatic: no easy bruising - Constitutional Vitals: Temp Pulse Resp BP Pulse Ox 99.2 F 91 17 133/70 99 05/03/18 15:04 05/03/18 15:22 05/03/18 15:04 05/03/18 15:04 05/03/18 15:04 General appearance: Present: cachectic Exam: moderate distress due to pain - Head Head exam: Present: atraumatic, normocephalic - Eye Eye exam: Present: PERRL, conjuntiva pink, sclera anicteric Pupils: Present: PERRL - Neck Neck exam general surgery: Present: supple, trachea midline. Absent: lymphadenopathy - Respiratory Respiratory exam: Present: CTAB. Absent: accessory muscle use, rales, rhonchi, wheezes - Cardiovascular Cardiovascular exam: Present: RRR, +S1, +S2. Absent: diastolic murmur, gallop, rubs, systolic murmur - GI/Abdominal GI/Abdominal exam: Present: normal bowel sounds, soft, no peritoneal signs. Absent: distended, tenderness - Extremities Exam Extremities exam: Present: joint swelling, warm, radial pulses palpable and symmetrical. Absent: calf tenderness, cyanotic, pedal edema Additional comments: pain and swelling in left hip - Neurological Exam Neurological exam: Present: CN II-XII intact, oriented X3, no focal deficits. Absent: pronater drift, facial droop, speech deficit - Skin Skin exam: Present: dry, intact - Assessment and plan (1) Closed intertrochanteric fracture of left hip Current Visit: No Status: Acute Assessment and plan: Left hip fracture s/p fall. Hip xray showed comminuted foreshortened, displaced angulated intertrochanteric fracture of the proximal left femur with suspected hematoma. Orthopedic surgery consulted and appreciate recs. Pain control PRN Qualifiers: Encounter type: initial encounter Fracture alignment: displaced Qualified Code(s): S72.142A - Displaced intertrochanteric fracture of left femur , initial encounter for closed fracture (2) Hyponatremia Current Visit: No Status: Acute Assessment and plan: Hyponatremia likely hypovolemic from dehydration vs related to alcohol abuse. Obtain TSH , cortisol. Give IV fluids with normal saline at 125mls/ hr. BMP q 4hrs to avoid over correction. Aim to correct by no more than 6-8meq in 24hrs. Nephrology consultation (3) Rhabdomyolysis Current Visit: No Status: Acute Assessment and plan: CPK levels elevated at 1600. Start on IV fluids. Daily CPK Qualifiers: Rhabdomyolysis type: traumatic Encounter type: initial encounter Qualified Code(s): T79.6XXA - Traumatic ischemia of muscle, initial encounter (4) DVT prophylaxis Current Visit: Yes Status: Acute Assessment and plan: Heparin sc (5) COPD (chronic obstructive pulmonary disease) Current Visit: No Status: Chronic Assessment and plan: Nebs PRN Qualifiers: COPD type: emphysema Emphysema type: unspecified Qualified Code(s): J43.9 - Emphysema, unspecified (6) Acute alcohol abuse Current Visit: Yes Status: Acute Assessment and plan: Alchol levels levels were elevated at 166. Monitor for signs of withdrawal. Place on CIWA protocol - Time Spent With Patient Total time spent is greater than 50% in coordination of care (as documented) at patient's floor/unit and/or counseling patient:
[2018-05-03] MEDS ORDERED: Acetaminophen 325 MG TABLET PO PRN (15:51)
[2018-05-03] MEDS ORDERED: traMADol 50 MG TABLET PO PRN (15:51)
[2018-05-03] MEDS ORDERED: *HR* LORazepam 2 MG/ML VIAL IVP PRN ×3 (16:25)
[2018-05-03] MEDS ORDERED: *HR* Promethazine 25 MG/ML VIAL IVP PRN (16:25)
[2018-05-03] MEDS: *HR* Morphine 2 MG/ML SYRINGE IVP SCH ×2 (16:53→20:01)
[2018-05-03 16:56] LABS: BUN/Creatinine Ratio 7 (6-26); Blood Urea Nitrogen 2 mg/dL (6-20); Carbon Dioxide 21 mEq/L (23-29); Chloride 94 mEq/L (98-107); Glucose 78 mg/dL (70-105); Osmolality,Calculated 249 (280-300); Sodium 122 mEq/L (136-145); eGFR For Non-African Americans > 60 (> 60)
[2018-05-03 19:51] LABS: BUN/Creatinine Ratio 12 (6-26); Blood Urea Nitrogen 3 mg/dL (6-20); Carbon Dioxide 21 mEq/L (23-29); Chloride 100 mEq/L (98-107); Glucose 89 mg/dL (70-105); Osmolality,Calculated 256 (280-300); Potassium 3.8 mEq/L (3.5-5.1); Sodium 125 mEq/L (136-145); eGFR For Non-African Americans > 60 (> 60)
--- NOTE | 2018-05-03 20:29 | Event Note ---
Date of Encounter: 05/03/18 Time of Encounter: 19:34 Alerted by pts. nurse MONTEZ Bruce that pt. admitted w/hyponatremia and sodium of 112 at [facility] @ 09:56. Sodium 122 at [facility] @ 15:53. 125 @ 19:19. 0.9 NS IV fluids stopped and pts. nurse instructed to place pt. on tele and monitor closely for EKG changes d/t sodium increase >8 mEq. Next re-check @ 00:00 and 04 :00. Pt. to be monitored closely.
[2018-05-04 00:23] LABS: BUN/Creatinine Ratio 15 (6-26); Blood Urea Nitrogen 4 mg/dL (6-20); Calcium 8.3 mg/dL (8.6-10.3); Carbon Dioxide 20 mEq/L (23-29); Chloride 101 mEq/L (98-107); Glucose 77 mg/dL (70-105); Osmolality,Calculated 260 (280-300); Potassium 3.6 mEq/L (3.5-5.1); Sodium 127 mEq/L (136-145); eGFR For Non-African Americans > 60 (> 60)
[2018-05-04] MEDS: *HR* Morphine 2 MG/ML SYRINGE IVP SCH ×6 (04:12→21:46)
[2018-05-04 06:10] LABS: Basophils # 0.1 K/mcL (0.0-0.2); Eosinophils % 0.6 %; Hemoglobin 9.3 g/dL (11.5-15.4); Immature Granulocytes % 0.2 % (0-4); Lymphocytes # 1.2 K/mcL (0.6-4.6); Lymphocytes % 25.5 %; Mean Corpuscular HGB Conc 33.2 g/dL (31.6-35.5); Mean Corpuscular Hemoglobin 28.9 pg (28.0-33.3); Mean Platelet Volume 9.9 fL (9.4-12.4); Monocytes # 0.7 K/mcL (0.0-1.3); Monocytes % 15.2 %; Neutrophils # 2.8 K/mcL (1.6-8.9); Platelet Count 248 K/mcL (140-400); Red Blood Count 3.22 M/mcL (3.82-4.97); Red Cell Distribution Width 16.3 % (11.5-14.5); Segmented Neutrophils % 57.5 %
[2018-05-04 06:21] LABS: BUN/Creatinine Ratio 17 (6-26); Blood Urea Nitrogen 4 mg/dL (6-20); Calcium 8.2 mg/dL (8.6-10.3); Carbon Dioxide 21 mEq/L (23-29); Chloride 102 mEq/L (98-107); Glucose 74 mg/dL (70-105); Magnesium 1.7 mg/dL (1.6-2.6); Osmolality,Calculated 264 (280-300); Phosphorous 2.2 mg/dL (2.7-4.5); Potassium 3.7 mEq/L (3.5-5.1); Sodium 129 mEq/L (136-145); eGFR For Non-African Americans > 60 (> 60)
[2018-05-04] MEDS ORDERED: Thiamine (B-1) 100 MG in D5% in Water 50 ML IVPB ONE (06:22)
[2018-05-04] MEDS ORDERED: D5% in 0.45% NACL 1,000 ML IVC SCH (06:30)
[2018-05-04] MEDS ORDERED: Cyanocobalamin (B-12) 1,000 MCG/ML VIAL IM ONE (07:39)
--- NOTE | 2018-05-04 07:55 | Internal Med Progress Note ---
Hospitalist Progress Note - Encounter Date of Encounter: 05/04/18 Time of Encounter: 07:50 - Exam Vitals: Temp Pulse Resp BP Pulse Ox 99.4 F 100 18 130/78 94 05/04/18 07:51 05/04/18 07:51 05/04/18 07:51 05/04/18 07:51 05/04/18 07:51 Exam: Gen - Awake, alert, oriented x 3, moderate distress due to pain HEENT - NCAT, PERRLA, EOMI, hearing grossly intact, oropharynx benign CV - RRR, normal S1 and S2, no M/R/G, no BLE edema Resp - Normal WOB, CTAB, no W/R/R GI - Soft, NT/ND, no masses, normal bowel sounds, Skin - Warm, dry, no rashes/lesions/ulcers Psych - Normal mood and affect, no depression or anxiety - Assessment and Plan (1) Closed intertrochanteric fracture of left hip Current Visit: No Status: Inactive Assessment and Plan: Left hip fracture s/p fall. Hip xray showed comminuted foreshortened, displaced angulated intertrochanteric fracture of the proximal left femur with suspected hematoma. Orthopedic surgery consulted and appreciate recs. Pain control PRN Surgery planned for sunday 05/06. (2) Hyponatremia Current Visit: Yes Status: Acute Assessment and Plan: Hyponatremia likely hypovolemic from dehydration vs related to alcohol abuse with chronic beer use/ beer potomania. Obtain TSH , cortisol. Give IV fluids with normal saline at 125mls/ hr. BMP q 4hrs to avoid over correction. Aim to correct by no more than 6-8meq in 24hrs. Nephrology consultation - Sodium corrected to 129 this am. Discussed with renal will start on free water to lower sodium levels to avoid over correction. Gave one dose of thiamine prior. TSH and random cortisol came back WNL (3) Rhabdomyolysis Current Visit: No Status: Inactive Assessment and Plan: CPK levels elevated at 1600. Start on IV fluids. Daily CPK. CPK trended down to 500 this am (4) COPD (chronic obstructive pulmonary disease) Current Visit: No Status: Chronic Assessment and Plan: Nebs PRN (5) Acute alcohol abuse Current Visit: Yes Status: Acute Assessment and Plan: Alchol levels levels were elevated at 166. Monitor for signs of withdrawal. Place on CIWA protocol (6) Vitamin B12 deficiency Current Visit: Yes Status: Acute Assessment and Plan: Received one dose of IM B12 supplementation. Continue on po vitamin B12 daily (7) DVT prophylaxis Current Visit: Yes Status: Acute Assessment and Plan: Heparin sc - Time Spent with Patient Total time spent is greater than 50% in coordination of care (as documented) at patient's floor/unit and/or counseling patient: Internal Medicine: Result - Labs CBC & Chem 7: 05/04/18 05:42 05/04/18 10:15 Labs: Short CBC 05/04/18 Range/Units 05:42 WBC 4.9 (4.3-11.1) K/mcL Hgb 9.3 L (11.5-15.4) g/dL Hct 28.0 L (35.3-44.9) % Plt Count 248 (140-400) K/mcL Neutrophils # 2.8 (1.6-8.9) K/mcL BMP 05/03/18 05/03/18 05/03/18 15:53 19:19 23:55 Sodium 122 L D 125 L 127 L Potassium 4.0 3.8 3.6 Chloride 94 L 100 101 Carbon Dioxide 21 L 21 L 20 L BUN 2 L 3 L 4 L Creatinine 0.27 L 0.26 L 0.26 L Glucose 78 89 77 Calcium 8.0 L 8.0 L 8.3 L 05/04/18 05:42 Sodium 129 L Potassium 3.7 Chloride 102 Carbon Dioxide 21 L BUN 4 L Creatinine 0.23 L Glucose 74 Calcium 8.2 L Consult Discharge Plan - Plan Referrals: Kelly Rojas MD [Primary Care Provider] - (1) Closed intertrochanteric fracture of left hip Qualifiers: Encounter type: initial encounter Fracture alignment: displaced Qualified Code(s): S72.142A - Displaced intertrochanteric fracture of left femur, initial encounter for closed fracture (3) Rhabdomyolysis Qualifiers: Rhabdomyolysis type: traumatic Encounter type: initial encounter Qualified Code(s): T79.6XXA - Traumatic ischemia of muscle, initial encounter (4) COPD (chronic obstructive pulmonary disease) Qualifiers: COPD type: emphysema Emphysema type: unspecified Qualified Code(s): J43.9 - Emphysema, unspecified
--- NOTE | 2018-05-04 08:40 | Nephrology Consult Note ---
Date of Encounter: 05/04/18 Time of Encounter: 10:30 Assessment and Plan (1) Hyponatremia Current Visit: Yes Status: Acute Acute on chronic hyponatremia Likely secondary to both chronic beer consumption as well as acute pain which can cause increased EQUIPMENT COORDINATOR secretion Further, the patient does appear to be malnourished in nature, and it is unclear whether or not she is doing good nutrition She does admit to being prescribed sodium chloride in the past Attempt to correct sodium did result in overcorrection of the sodium from 112- 129. Recommended correction is 6-8 mEq in 24 hours We do recommend freewater be given to bring this number down and attempt to slower correction of sodium Plan -Recommend D5 water at 125 mL an hour, every 4 hours sodiums -Goal sodium correction 6-8 mEq per 24 hour period -Monitor neurological status -Encourage adequate nutritional intake -A freewater does not sodium, consider DDAVP as needed (2) Metabolic acidosis Current Visit: Yes Status: Acute Non-anion gap metabolic acidosis Serum bicarbonate 18-21 during admission Patient denies any toxic ingestion Most likely secondary to starvation ketosis Recommend adequate nutrition supplementation at this time If it continues, suggest workup with measured serum osmolality (3) Alcoholism /alcohol abuse Current Visit: Yes Status: Chronic Chronic alcohol use, primarily beer Patient does not indicate intention to stop using beer Would like to have her on this admission Recommend a CIWA protocol with vitamin supplementation, management per primary team (4) Closed left hip fracture Current Visit: Yes Status: Acute Management per orthopedic surgery Qualifiers: Encounter type: initial encounter Qualified Code(s): S72.002A - Fracture of unspecified part of neck of left femur, initial encounter for closed fracture History of Present Illness - Reason for Consult Consult date: 05/04/18 hyponatremia Requesting physician: Laith Rice - Chief Complaint Hip fracture - History of Present Illness Mrs. Rao is a 57-year-old woman with a history of COPD, osteoporosis was not presented to [facility] following a left hip fracture status post fall 2 days ago. She apparently was in the bathroom and tripped and fell over a cord at which time she remained on the floor for approximately 30 minutes before she was found by a friend. When she presented to the ED it was noted that she had a low sodium of 112 and a CK of 1600. She was transferred to [facility] for management of the hip fracture as well as the management of severe hyponatremia. On review of labs, does appear that this patient has had a chronic hyponatremia with baseline sodium being around 127 to 130. The patient notes that she has a chronic tear drinker and drinks several beers a day. She has heard of people adding salt there beer in the past, however she has never done so. She mentions that her primary care provider did recently put her on salt tabs and that she takes 1 tablet once a week. She otherwise does not admit any kidney problems in the past. She has never seen a structural steel worker in the past and she does not have any family history of kidney disease. She did not complain of any neurological symptoms including headache, dizziness, changes in vision. She also has had no confusion. Upon initial presentation, the patient was placed on normal saline due to the rhabdomyolysis, however she rapidly corrected her sodium from 112-129 over a 24-hour period. Nephrology was consultative for recommendations on management of this patient's hyponatremia. Past Med Surg Social Fam HX - Past Medical History Medical history: COPD, other Additional medical history: anemia Psychiatric history: no psych history - Past Surgical History Surgical History: Additional surgical history: back surgery - Social History Smoking Status: Current every day smoker Packs per day: 1 or more Smokeless Tobacco Status: No Alcohol use: heavy Drug use: none - Family History Mother History Unknown: Yes Living Status: Medications and Allergies Alendronate Sodium [Fosamax] 70 mg PO TH 05/03/18 [History] Calcium Carbonate/Vitamin D3 [Oyster Shell Calcium-Vit D Tab] 1 tab PO TID 05/03 [History] 3 Allergy/AdvReac Type Severity Reaction Status Date / Time No Known Allergies Allergy Verified 05/03/18 16:01 Review of Systems All Systems review (narrative): Constitutional: Denies fevers, chills, weight loss, generalized fatigue Head/Neck: Denies ORTEGA, neck stiffness EENT: Denies vision changes/blurriness, rhinorrhea, congestion, sore throat CVS: Denies chest pain, palpitations, DUBOSE, orthopnea, edema, PND Pulm: Denies SOB, cough, sputum, hemoptysis, wheezing GI: Denies abdominal pain, nausea, vomiting, diarrhea, constipation, melena, hematemasis : Denies dysuria, increased frequency, urgency, hematuria Heme: Denies ease of bleeding or bruising MSK: Admits to pain and limited range of motion in left hip status post fall and fracture of left hip Skin: Denies rashes, ulcers, color changes Neuro: Denies ORTEGA, paresthesias, focal deficits, ataxia Exam - Vital Signs Vital signs: Initial Vital Signs Temp Pulse Resp BP Pulse Ox 99.2 F 89 17 133/70 99 05/03/18 15:04 05/03/18 15:04 05/03/18 15:04 05/03/18 15:04 05/03/18 15:04 Vital Signs - Last 8 Hours Temp Pulse Resp BP Pulse Ox 05/04/18 08:00 99 05/04/18 07:51 99.4 F 100 18 130/78 94 05/04/18 03:12 99 F 97 20 131/74 96 Intake and Output 05/03/18 05/04/18 05/04/18 23:59 07:59 15:59 Intake Total 1190 / 1190 364 / 364 Output Total 1875 / 1875 400 / 400 Balance -685 / -685 -36 / -36 Intake: IV Fluids 950 / 950 364 / 364 0.45% Sodium Chloride 1000 Ml 364 / 364 1000 Ml 1,000 ML @ 100 mls/hr IVC .Q10H [facility] Rx#:[id number] 0.9 % Sodium Chloride 1,000 ML 950 / 950 @ 125 mls/hr IVC .Q8H [facility] Rx#: [id number] Oral 240 / 240 Output: Catheter 1875 / 1875 400 / 400 Other: Meal Dinner Percent of Meal Consumed 25% Weight 45.3 kg 43.5 kg Patient Weight 05/04/18 23:59 Weight 43.5 kg - General Appearance Exam: Gen: Vitals noted. No acute distress. Frail appearing woman, extremely thin. HEENT: Normocephalic, atraumatic. No JVD or hepatojugular reflux Neck: Supple. No adenopathy. Cardiac: RRR, no murmur, +S1/S2 Pulmonary: CTA bilaterally, no wheezes, rales or rhonchi, equal chest expansion Abdomen: soft, nontender, no guarding Back: Nontender throughout. Skin: The patient is highly vascular. MSK: ROM intact, no joint swelling noted. Left leg is sore and tender to palpation. It is not move due to fracture. Extremities: no BLE edema, nontender calf, no cyanosis or clubbing Neuro: moves all extremities, no focal deficits. A&Ox3 Psych: Appropriate mood and behavior Results - Lab Results 05/04/18 05:42 05/04/18 10:15 Most recent lab results Calcium 8.2 mg/dL (8.6-10.3) L 05/04/18 05:42 Phosphorus 2.2 mg/dL (2.7-4.5) L 05/04/18 05:42 Magnesium 1.7 mg/dL (1.6-2.6) 05/04/18 05:42 Consult Discharge Plan - Plan Referrals: Kelly Rojas MD [Primary Care Provider] -
[2018-05-04] MEDS: Vitamin B Complex/Vit C/Vit E 1 EACH TABLET PO SCH (09:53)
[2018-05-04] MEDS: D5% in Water 1,000 ML IVC SCH ×2 (09:53→18:00)
[2018-05-04] MEDS: Thiamine (B-1) 100 MG TABLET PO SCH (09:53)
[2018-05-04] MEDS: Folic Acid 1 MG TABLET PO SCH (09:53)
[2018-05-04 10:44] LABS: BUN/Creatinine Ratio 18 (6-26); Blood Urea Nitrogen 5 mg/dL (6-20); Calcium 8.3 mg/dL (8.6-10.3); Carbon Dioxide 18 mEq/L (23-29); Chloride 98 mEq/L (98-107); Glucose 99 mg/dL (70-105); Osmolality,Calculated 257 (280-300); Potassium 3.6 mEq/L (3.5-5.1); Sodium 125 mEq/L (136-145); eGFR For Non-African Americans > 60 (> 60)
--- NOTE | 2018-05-04 10:54 | Orthopedic Consult Note ---
Date of Encounter: 05/04/18 Time of Encounter: 10:51 Assessment and Plan (1) Closed left hip fracture Current Visit: Yes Status: Acute The diagnosis and treatment recommendations were discussed with the patient. She has a comminuted intertrochanteric fracture with extension into the femoral neck of the left hip and to allow her opportunity for early mobility, and for pain control and to decrease the risks associated with immobility, surgical treatment was recommended. With the involvement of both the intracapsular region of the hip and calcar, this would require a calcar replacing arthroplasty. Discussed the case with Dr Eli and he will plan on surgical fixation friday to allow for medical stabilization and correction of lab values prior to surgery. NPO at [place] 05/05. CT ROSA ordered for surgical planning. Bedrest. Appreciate medical management from primary team. Qualifiers: Encounter type: initial encounter Qualified Code(s): S72.002A - Fracture of unspecified part of neck of left femur, initial encounter for closed fracture History of Present Illness HPI: Ms. Rao is a 57 year old female PMHx of COPD, osteoporosis, alcohol abuse presenting s/p fall. Patient was inebriated but believes she tripped and fell over a cord. Was down for a significant period of time and was found by a friend. She then ambulated on the hip with a walker and went to sleep, then woke up in severe pain and called EMS. Was diagnosed with a left hip fracture and transferred for definitive management. Denies chest pain, shortness of breath, nausea or vomiting or numbness and tingling. Past Med Surg Social Fam HX - Past Medical History Medical history: COPD, other Additional medical history: anemia Psychiatric history: no psych history - Past Surgical History Surgical History: Additional surgical history: back surgery - Social History Smoking Status: Current every day smoker Packs per day: 1 or more Smokeless Tobacco Status: No Alcohol use: heavy Drug use: none - Family History Mother History Unknown: Yes Living Status: Medications and Allergies Alendronate Sodium [Fosamax] 70 mg PO TH 05/03/18 [History] Calcium Carbonate/Vitamin D3 [Oyster Shell Calcium-Vit D Tab] 1 tab PO TID 05/03 [History] 3 Allergy/AdvReac Type Severity Reaction Status Date / Time No Known Allergies Allergy Verified 05/03/18 16:01 All Systems Reviewed: The remainder of the systems were reviewed and are negative except as noted in the HPI Physical Exam - Constitutional Vitals: Temp Pulse Resp BP Pulse Ox 99.4 F 99 18 130/78 94 05/04/18 07:51 05/04/18 08:00 05/04/18 07:51 05/04/18 07:51 05/04/18 07:51 Exam: Consult Exam: Constitutional -Vitals reviewed -The patient appears cachectic Psychiatric -The patient is alert and oriented x 3. Respiratory: -Respiratory effort normal Abdomen: -Soft abdomen -Non tender -Non distended: Left upper extremity: -No deformities. The overlying skin is intact with ecchymosis over the forearms. No obvious signs of acute trauma. -No tenderness to palpation throughout. -No significant pain with passive motion of the shoulder, elbow, wrist, and fingers within the limits of the bed. -Spontaneously moves extremity without pain -Sensation grossly intact to light touch throughout the median, radial, and ulnar distributions. -Radial pulse is present; Fingers have good capillary refill. Right upper extremity: -No deformities. The overlying skin is intact with ecchymosis over the forearms. No obvious signs of acute trauma. -No tenderness to palpation throughout. -No significant pain with passive motion of the shoulder, elbow, wrist, and fingers within the limits of the bed. -Spontaneously moves extremity without pain -Sensation grossly intact to light touch throughout the median, radial, and ulnar distributions. -Radial pulse is present; Fingers have good capillary refill. Left lower extremity: -Left leg short/ER -Tenderness to palpation over lateral hip, no tenderness over knee, ankle, and toes -Pain with log roll/IR at hip -Able to dorsiflex and plantarflex the ankle and toes. -Sensation is grossly intact to light touch throughout the sural, saphenous, superficial peroneal, and deep peroneal distributions. -Toes have good capillary refill. Right lower extremity: -No deformities. The overlying skin is intact. No obvious signs of acute trauma. -No tenderness to palpation throughout. -No pain with passive motion of the hip, knee, ankle, and toes within the limits of the bed. -No pain with axial loading of the thigh. -Able to dorsiflex and plantarflex the ankle and toes. -Sensation is grossly intact to light touch throughout the sural, saphenous, superficial peroneal, and deep peroneal distributions. -Toes have good capillary refill. Results - Labs Result Diagrams: 05/04/18 05:42 05/04/18 10:15 Labs: Abnormal lab results RBC 3.22 M/mcL (3.82-4.97) L 05/04/18 05:42 Hgb 9.3 g/dL (11.5-15.4) L 05/04/18 05:42 Hct 28.0 % (35.3-44.9) L 05/04/18 05:42 RDW 16.3 % (11.5-14.5) H 05/04/18 05:42 Sodium 125 mEq/L (136-145) L 05/04/18 10:15 Carbon Dioxide 18 mEq/L (23-29) L 05/04/18 10:15 BUN 5 mg/dL (6-20) L 05/04/18 10:15 Creatinine 0.28 mg/dL (0.60-1.20) L 05/04/18 10:15 Calculated Osmolality 257 (280-300) L 05/04/18 10:15 Calcium 8.3 mg/dL (8.6-10.3) L 05/04/18 10:15 Phosphorus 2.2 mg/dL (2.7-4.5) L 05/04/18 05:42 Creatine Kinase 599 Units/L (30-223) H 05/04/18 05:42 H & H 05/04/18 Range/Units 05:42 Hgb 9.3 L (11.5-15.4) g/dL Hct 28.0 L (35.3-44.9) % All other labs normal. - Diagnostic results Hip x-ray: report reviewed, image reviewed (Comminuted intertrochanteric fracture L hip with extension into the femoral neck) Consult Discharge Plan - Plan Referrals: Kelly Rojas MD [Primary Care Provider] -
[2018-05-04 13:39] LABS: BUN/Creatinine Ratio 18 (6-26); Blood Urea Nitrogen 5 mg/dL (6-20); Calcium 8.4 mg/dL (8.6-10.3); Carbon Dioxide 21 mEq/L (23-29); Chloride 96 mEq/L (98-107); Glucose 98 mg/dL (70-105); Osmolality,Calculated 255 (280-300); Potassium 3.8 mEq/L (3.5-5.1); Sodium 124 mEq/L (136-145); eGFR For Non-African Americans > 60 (> 60)
[2018-05-04 16:13] LABS: BUN/Creatinine Ratio 14 (6-26); Blood Urea Nitrogen 5 mg/dL (6-20); Calcium 8.5 mg/dL (8.6-10.3); Carbon Dioxide 22 mEq/L (23-29); Chloride 96 mEq/L (98-107); Glucose 117 mg/dL (70-105); Osmolality,Calculated 256 (280-300); Sodium 124 mEq/L (136-145); eGFR For Non-African Americans > 60 (> 60)
[2018-05-04 20:40] LABS: BUN/Creatinine Ratio 13 (6-26); Blood Urea Nitrogen 4 mg/dL (6-20); Calcium 8.5 mg/dL (8.6-10.3); Carbon Dioxide 21 mEq/L (23-29); Chloride 96 mEq/L (98-107); Glucose 113 mg/dL (70-105); Osmolality,Calculated 256 (280-300); Potassium 3.6 mEq/L (3.5-5.1); Sodium 124 mEq/L (136-145); eGFR For Non-African Americans > 60 (> 60)
[2018-05-05] MEDS: *HR* Morphine 2 MG/ML SYRINGE IVP SCH ×6 (01:05→20:15)
[2018-05-05] MEDS: D5% in Water 1,000 ML IVC SCH ×2 (01:22→09:42)
--- NOTE | 2018-05-05 06:55 | Orthopedics Progress Note ---
Date of Encounter: 05/05/18 Time of Encounter: 06:54 Subjective Interval history: Patient seen this morning with significantly low basicervical versus trochanteric left hip fracture. Plan is for left total hip replacement, We reviewed the risks and benefits as well as recovery. All questions were answered. The patient agreed to this treatment plan and appeared to understand the plan is reviewed. Objective Vital signs: Vital Signs Temp Pulse Resp BP Pulse Ox 05/05/18 04:26 98.3 F 94 16 108/64 97 05/04/18 23:48 99.0 F 90 16 126/72 98 05/04/18 19:53 98.4 F 91 16 110/66 97 05/04/18 17:48 99.0 F 94 16 127/65 97 05/04/18 14:55 98.9 F 94 16 136/78 96 05/04/18 08:00 99 05/04/18 07:51 99.4 F 100 18 130/78 94 Intake and Output 05/04/18 05/04/18 05/05/18 15:59 23:59 07:59 Intake Total 51 / 51 1000 / 1000 1200 / 1200 Output Total 1300 / 1300 900 / 900 Balance 51 / 51 -300 / -300 300 / 300 Intake: IV Fluids 51 / 51 1000 / 1000 1000 / 1000 Dextrose 5% 1,000 ML @ 125 mls/ 1000 / 1000 1000 / 1000 hr IVC .Q8H [facility] Rx#:[id number] Vitamin B-1 100 MG In Dextrose 51 / 51 5% 50 ML @ 50 mls/hr IVPB ONCE ONE Rx#:[id number] Oral 200 / 200 Output: Catheter 1300 / 1300 900 / 900 - Labs CBC & BMP: 05/04/18 05:42 05/04/18 20:11 Labs: Abnormal lab results RBC 3.22 M/mcL (3.82-4.97) L 05/04/18 05:42 Hgb 9.3 g/dL (11.5-15.4) L 05/04/18 05:42 Hct 28.0 % (35.3-44.9) L 05/04/18 05:42 RDW 16.3 % (11.5-14.5) H 05/04/18 05:42 Sodium 124 mEq/L (136-145) L 05/04/18 20:11 Chloride 96 mEq/L (98-107) L 05/04/18 20:11 Carbon Dioxide 21 mEq/L (23-29) L 05/04/18 20:11 BUN 4 mg/dL (6-20) L 05/04/18 20:11 Creatinine 0.32 mg/dL (0.60-1.20) L 05/04/18 20:11 Glucose 113 mg/dL (70-105) H 05/04/18 20:11 Calculated Osmolality 256 (280-300) L 05/04/18 20:11 Calcium 8.5 mg/dL (8.6-10.3) L 05/04/18 20:11 Phosphorus 2.2 mg/dL (2.7-4.5) L 05/04/18 05:42 Creatine Kinase 481 Units/L (30-223) H 05/05/18 01:40 - VTE Documentation of Mechanical Device: Intermittent pneumatic compression device Consult Discharge Plan - Plan Referrals: Kelly Rojas MD [Primary Care Provider] -
[2018-05-05 07:38] LABS: BUN/Creatinine Ratio 6 (6-26); Blood Urea Nitrogen 2 mg/dL (6-20); Calcium 8.3 mg/dL (8.6-10.3); Carbon Dioxide 23 mEq/L (23-29); Chloride 96 mEq/L (98-107); Glucose 111 mg/dL (70-105); Osmolality,Calculated 255 (280-300); Potassium 4.4 mEq/L (3.5-5.1); Sodium 124 mEq/L (136-145); eGFR For Non-African Americans > 60 (> 60)
[2018-05-05] MEDS: Folic Acid 1 MG TABLET PO SCH (08:14)
[2018-05-05] MEDS: Vitamin B Complex/Vit C/Vit E 1 EACH TABLET PO SCH (08:14)
[2018-05-05] MEDS: Thiamine (B-1) 100 MG TABLET PO SCH (08:14)
[2018-05-05] MEDS: Cyanocobalamin (B-12) 1,000 MCG TABLET PO SCH (08:14)
--- NOTE | 2018-05-05 08:54 | Nephrology Progress Note ---
Date of Encounter: 05/05/18 Time of Encounter: 10:20 - Assessment and Plan (1) Hyponatremia Current Visit: Yes Status: Acute Acute on chronic hyponatremia, improved Likely secondary to both chronic beer consumption as well as acute pain which can cause increased HOSPITAL NURSE LIAISON secretion Further, the patient does appear to be malnourished in nature, and it is unclear whether or not she is doing good nutrition Attempt to correct sodium did result in overcorrection of the sodium from 112 to 129. Recommended correction is 6-8 mEq in 24 hours The patient was given D5W which did bring her sodium back to 124 as of this morning. The patient has remained asymptomatic At this time, it is reasonable to begin increasing sodium slowly again with goal of 6-8mEq in 24hr. Plan -Recommend 1g NaCl tabs BID. Fluid replacement as needed per fluid status, but not for sodium correction -Goal sodium correction 6-8 mEq per 24 hour period -Monitor neurological status -Encourage adequate nutritional intake (2) Metabolic acidosis Current Visit: Yes Status: Resolved Resolved Suspected secondary to starvation ketosis (3) Alcoholism /alcohol abuse Current Visit: Yes Status: Chronic Chronic alcohol use, primarily beer Patient does not indicate intention to stop using beer Would like to have her on this admission Recommend a CIWA protocol with vitamin supplementation, management per primary team (4) Closed left hip fracture Current Visit: Yes Status: Acute Management per orthopedic surgery Plan for ORIF tomorrow with Dr. Eli Qualifiers: Encounter type: initial encounter Qualified Code(s): S72.002A - Fracture of unspecified part of neck of left femur, initial encounter for closed fracture Subjective Principal diagnosis: L. Hip Fracture Interval history: Patient is resting in bed at time of examination. Sodium has trended down from previous. She has some significant pain which is still bothering her. No neurological symptoms. Objective - Vital Signs Vital signs: Vital Signs Temp Pulse Resp BP Pulse Ox 05/05/18 07:32 98.0 F 83 16 118/58 97 05/05/18 04:26 98.3 F 94 16 108/64 97 05/04/18 23:48 99.0 F 90 16 126/72 98 05/04/18 19:53 98.4 F 91 16 110/66 97 05/04/18 17:48 99.0 F 94 16 127/65 97 05/04/18 14:55 98.9 F 94 16 136/78 96 Intake and Output 09/03/18 09/04/18 09/04/18 23:59 07:59 15:59 Intake Total 1000 / 1000 1200 / 1200 Output Total 1300 / 1300 1500 / 1500 Balance -300 / -300 -300 / -300 Intake: IV Fluids 1000 / 1000 1000 / 1000 Dextrose 5% 1,000 ML @ 125 mls/ 1000 / 1000 1000 / 1000 hr IVC .Q8H [facility] Rx#:[id number] Oral 200 / 200 Output: Catheter 1300 / 1300 1500 / 1500 - General Appearance Exam: Gen: Vitals noted. No acute distress. Frail appearing woman, extremely thin. HEENT: Normocephalic, atraumatic. Neck: Supple. No adenopathy. Cardiac: RRR, no murmur, +S1/S2 Pulmonary: CTA bilaterally, no wheezes, rales or rhonchi, equal chest expansion Abdomen: soft, nontender, no guarding Skin: The patient is highly vascular. MSK: ROM intact, no joint swelling noted. Left leg is sore and tender to palpation. It is not moved due to fracture. Extremities: no BLE edema, nontender calf, no cyanosis or clubbing Neuro: moves all extremities, no focal deficits. A&Ox3 Psych: Appropriate mood and behavior - Lab 05/04/18 05:42 05/05/18 12:12 Most recent lab results Calcium 8.3 mg/dL (8.6-10.3) L 05/05/18 07:01 Phosphorus 2.2 mg/dL (2.7-4.5) L 05/04/18 05:42 Magnesium 1.7 mg/dL (1.6-2.6) 05/04/18 05:42 - VTE Documentation of Mechanical Device: Intermittent pneumatic compression device Consult Discharge Plan - Plan Referrals: Kelly Rojas MD [Primary Care Provider] -
[2018-05-05 12:42] LABS: BUN/Creatinine Ratio 10 (6-26); Blood Urea Nitrogen 3 mg/dL (6-20); Calcium 8.7 mg/dL (8.6-10.3); Carbon Dioxide 28 mEq/L (23-29); Chloride 95 mEq/L (98-107); Glucose 143 mg/dL (70-105); Osmolality,Calculated 261 (280-300); Potassium 3.5 mEq/L (3.5-5.1); Sodium 126 mEq/L (136-145); eGFR For Non-African Americans > 60 (> 60)
--- NOTE | 2018-05-05 13:11 | Event Note ---
Date of Encounter: 05/05/18 Time of Encounter: 12:20 Patient was evaluated by Dr. Eli this morning who discussed with patient that the left hip fracture will require sirgical intervention. Plan for left total hip arthroplasty robotic tomorrow (05/06/18). I reviewed again the procedure as well as r/b/a with the patient who expressed understanding. Consent was obtained. Copy placed in chart on floor and given to surgery technician in office. NPO after midnight. Pending medical clearance, hyponatremia
--- NOTE | 2018-05-05 16:36 | Internal Med Progress Note ---
Hospitalist Progress Note - Encounter Date of Encounter: 05/05/18 Time of Encounter: 10:50 - Subjective Interval History: awake with family at bedside. denies confusion, lethargy, headache, muscle cramping or jerks. Continued left hip pain with any movement. No numbness/ tingling of leg/feet. Denies chest abbott, palpitations. - Exam Vitals: Temp Pulse Resp BP Pulse Ox 98.5 F 90 16 140/62 95 05/05/18 15:57 05/05/18 15:57 05/05/18 15:57 05/05/18 15:57 05/05/18 15:57 Exam: General: awake, alert, appears stated age HEENT:EOM intact, pupils equal, round, moist mucus membranes, clear oropharynx Cardiovascular:regular rate and rhythm, normal S1 & S2, no rubs, murmurs or gallops. DP/PT pulses 2+, no lower extremity edema Lungs:Normal breath sounds, no wheezes, or crackles. Normal respiratory effort Abdomen:Soft, non-tender, non-distended, + bowel sounds Extremities:left foot external rotation, rom not tested given fracture Neurological: AAOx3, CN grossly intact, no focal deficits, sensation to light touch intact and equal in bl le Skin:Normal color, no rash, no pallor - Assessment and Plan (1) Hyponatremia Current Visit: Yes Status: Acute Assessment and Plan: Acute on Chronic Hyponatremia likely hypovolemic from dehydration vs related to alcohol abuse with chronic beer use/ beer potomania. Overcorrected initially -nephro following -on D5W and correction now at appropraite rate -fu nephro recs re when can dc D5W -no neuro deficits -TSH and random cortisol came back WNL -cont to monitor (2) Closed intertrochanteric fracture of left hip Current Visit: No Status: Inactive Assessment and Plan: Left hip fracture s/p fall. -Hip xray showed comminuted foreshortened, displaced angulated intertrochanteric fracture of the proximal left femur with suspected hematoma. -Orthopedic surgery consulted - Pain control PRN -Surgery planned for sunday 05/06. (3) Rhabdomyolysis Current Visit: No Status: Inactive Assessment and Plan: CPK levels elevated at 1600. -on IV fluids. -Daily CPK down trending -nephro following (4) DVT prophylaxis Current Visit: Yes Status: Acute Assessment and Plan: Heparin sc held for OR in AM, scd in place (5) Acute alcohol abuse Current Visit: Yes Status: Acute Assessment and Plan: Alcohol levels levels were elevated at 166. -currently no signs of withdrawal. -on CIWA protocol -on thiamine, folic acid daily + additional vitamin supp for B12 (6) Vitamin B12 deficiency Current Visit: Yes Status: Acute Assessment and Plan: Received one dose of IM B12 supplementation. Continue on po vitamin B12 daily (7) COPD (chronic obstructive pulmonary disease) Current Visit: No Status: Chronic Assessment and Plan: stable. Nebs PRN - Time Spent with Patient Total time spent is greater than 50% in coordination of care (as documented) at patient's floor/unit and/or counseling patient: Internal Medicine: Result - Labs CBC & Chem 7: 05/04/18 05:42 05/05/18 12:12 Labs: BMP 05/04/18 05/05/18 05/05/18 20:11 07:01 12:12 Sodium 124 L 124 L 126 L Potassium 3.6 4.4 3.5 Chloride 96 L 96 L 95 L Carbon Dioxide 21 L 23 28 BUN 4 L 2 L 3 L Creatinine 0.32 L 0.31 L 0.31 L Glucose 113 H 111 H 143 H Calcium 8.5 L 8.3 L 8.7 - VTE Documentation of Mechanical Device: Intermittent pneumatic compression device Consult Discharge Plan - Plan Referrals: Kelly Rojas MD [Primary Care Provider] - (2) Closed intertrochanteric fracture of left hip Qualifiers: Encounter type: initial encounter Fracture alignment: displaced Qualified Code(s): S72.142A - Displaced intertrochanteric fracture of left femur, initial encounter for closed fracture (3) Rhabdomyolysis Qualifiers: Rhabdomyolysis type: traumatic Encounter type: initial encounter Qualified Code(s): T79.6XXA - Traumatic ischemia of muscle, initial encounter (7) COPD (chronic obstructive pulmonary disease) Qualifiers: COPD type: emphysema Emphysema type: unspecified Qualified Code(s): J43.9 - Emphysema, unspecified
--- NOTE | 2018-05-05 19:50 | Anesthesia Evaluation PreOp ---
Date of Encounter: 05/05/18 Time of Encounter: 19:47 - Past History Planned Operation: Left Robotic Total Hip Cardiac History: Denies any Significant Hx Pulmonary History: Smoker (1-2 ppd), Pack/yr (1-2 ppd x 40+ years), COPD SENIOR SOFTWARE QUALITY ENGINEER History: Other (Bipolar/Anxiety/Depression) Other Medical History: Other (Malnutrition/underweight, Chronic Hyponatremia - being treated, Bed bug and eason infestation this admission (treated)) Anesthesia History: No Prior Anesthetic Complications, Past Anesthesia (C/S, R. THR, Back sx, Colonoscopy,) : No Alcohol Use: heavy ( can't go longer than 1 day without EtOH) Drug use: none Medications and Allergies Alendronate Sodium [Fosamax] 70 mg PO TH 05/03/18 [History] Calcium Carbonate/Vitamin D3 [Oyster Shell Calcium-Vit D Tab] 1 tab PO TID 05/03 [History] 3 Allergy/AdvReac Type Severity Reaction Status Date / Time No Known Allergies Allergy Verified 05/03/18 16:01 - Meds/Allergy Pre-op Review Medications Reviewed: Yes Allergies Reviewed: Yes Beta Blockers on Current Med List: No Anesthesia Results - Labs 05/04/18 05:42 05/05/18 12:12 Echo 05/12/2015 EF-60-65% No SWMA No Pulm Htn - Imaging EKG: report reviewed (SINUS TACHYCARDIA POSSIBLE LEFT ATRIAL ENLARGEMENT INCOMPLETE RIGHT BUNDLE BRANCH BLOCK PROBABLE INFERIOR MYOCARDIAL INFARCTION OF INDETERMINATE AGE) Anesthesia Exam Vital Signs/O2 Sat, Most Current Temp Pulse Resp BP Pulse Ox 98.5 F 90 16 140/62 95 05/05/18 15:57 05/05/18 15:57 05/05/18 15:57 05/05/18 15:57 05/05/18 15:57 NPO (# of Hours): > 8 hrs Pain Scale: 0 Pain Scale Used: Numeric (1 - 10) - HEENT Pupil (Motor): Pupils equal, EOMI Mallampati: II Teeth: Edentulous Oral Opening: Greater than 3 - SENIOR SOFTWARE QUALITY ENGINEER LOC: Oriented SENIOR SOFTWARE QUALITY ENGINEER Motor: Normal RUE, Normal LUE, Normal RLE, Normal LLE, Normal Face SENIOR SOFTWARE QUALITY ENGINEER Sensory: Normal: RUE, LUE, RLE, LLE, Face - Cardiac Rhythm: Regular Murmur: None JVD: No Carotid Bruit: No - Pulmonary Breath Sounds: bilateral Clear Respiratory Effort: Symmetrical Anesthesia Assess/Plan ASA Score: 3 Modified Chelsea Scale for Level of Consciousness: Cooperative, oriented, and tranquil Anesthetic Plan: General Autologous Blood: Yes Monitoring Plan: Standard Monitors Recovery Plan: PACU
[2018-05-06] MEDS: *HR* Morphine 2 MG/ML SYRINGE IVP SCH ×3 (00:20→11:34)
[2018-05-06 01:43] LABS: Basophils # 0.1 K/mcL (0.0-0.2); Basophils % 0.8 %; Eosinophils # 0.1 K/mcL (0.0-0.6); Eosinophils % 1.1 %; Hematocrit 26.7 % (35.3-44.9); Hemoglobin 8.8 g/dL (11.5-15.4); Immature Granulocytes % 0.3 % (0-4); Lymphocytes # 1.8 K/mcL (0.6-4.6); Lymphocytes % 26.7 %; Mean Corpuscular Hemoglobin 29.3 pg (28.0-33.3); Mean Platelet Volume 9.8 fL (9.4-12.4); Monocytes # 0.7 K/mcL (0.0-1.3); Monocytes % 10.7 %; Platelet Count 256 K/mcL (140-400); Red Cell Distribution Width 16.6 % (11.5-14.5); Segmented Neutrophils % 60.4 %
[2018-05-06 02:04] LABS: BUN/Creatinine Ratio 10 (6-26); Blood Urea Nitrogen 3 mg/dL (6-20); Calcium 8.7 mg/dL (8.6-10.3); Carbon Dioxide 27 mEq/L (23-29); Chloride 99 mEq/L (98-107); Glucose 105 mg/dL (70-105); Osmolality,Calculated 267 (280-300); Potassium 3.2 mEq/L (3.5-5.1); Sodium 130 mEq/L (136-145); eGFR For Non-African Americans > 60 (> 60)
[2018-05-06] MEDS ORDERED: Acetaminophen IV 1,000 MG/100 ML INFUS..BTL ONE (07:23)
[2018-05-06] MEDS ORDERED: Ethanol\\Acetic Acid\\Na Ace\\Ben 1,000 ML IRRIG.SOLN IR ONE (07:26)
[2018-05-06] MEDS ORDERED: KETAMINE HCL 50 MG/ML SYRINGE IV ONE (07:41)
[2018-05-06] MEDS ORDERED: *HR* PHENYLEPHRINE 1,000 MCG/10 ML SYRINGE IVP ONE (08:28)
[2018-05-06] MEDS ORDERED: *HR* Propofol 200 MG/20 ML VIAL IVP ONE (08:28)
[2018-05-06] MEDS ORDERED: *HR* FentaNYL (PF) 100 MCG/2 ML VIAL ONE (08:28)
[2018-05-06] MEDS ORDERED: *HR* Succinylcholine 200 MG/10 ML VIAL IVP ONE (08:28)
[2018-05-06] MEDS ORDERED: *HR* Magnesium Sulfate 1 GM/2 ML VIAL ONE (08:28)
[2018-05-06] MEDS ORDERED: Dexamethasone 4 MG/ML VIAL ONE (08:28)
[2018-05-06] MEDS ORDERED: *HR* Midazolam HCl 2 MG/2 ML VIAL ONE (08:28)
[2018-05-06] MEDS ORDERED: Lidocaine -MPF 4% 5 ML AMPUL ONE (08:28)
[2018-05-06] MEDS ORDERED: Lidocaine -MPF 2% 2 ML VIAL ONE (08:28)
[2018-05-06] MEDS ORDERED: *HR* OxyCODONE Immed Rel 5 MG TABLET PO PRN (08:32)
[2018-05-06] MEDS ORDERED: *HR* HYDROmorphone 2 MG TABLET PO PRN (08:32)
[2018-05-06] MEDS ORDERED: *HR* Promethazine 25 MG/ML VIAL IVP PRN ×2 (08:32→10:41)
[2018-05-06] MEDS ORDERED: Ketorolac 30 MG/ML VIAL ONE (08:50)
[2018-05-06] MEDS ORDERED: Ondansetron 4 MG/2 ML VIAL ONE (09:12)
--- NOTE | 2018-05-06 09:13 | Orthopedic Operative Note ---
Date of procedure: 05/06/18 Pre-op diagnosis: Displaced left basicervical hip fracture Post-op diagnosis: same Procedure: Procedure: Left Total Hip Replacment robotic-assisted Estimated blood loss: 200 cc Hardware: Metal and polyethylene replacement. Patience DM Cup: 52 cup Femoral size 10 stem Head:+4 head with Pita Procedural Notes: Displaced basicervical fracture with portion of greater trochanteric fracture Operative procedure: The patient was brought to the operating room and placed on the operating room table. After general anesthesia was administered the patient was placed in the lateral decubitus position with the operative leg up. All pressure points were padded appropriately and the head was stabilized in the neutral position. The operative extremity was prepped and draped in the sterile surgical fashion patient received IV antibiotic prior to skin incision. 3 Steinmann pins were placed in the iliac crest 3 cm proximal to the anterior superior iliac spine this was for the robotic-assisted sensor. This was done through a small 2 cm incision. A standard posterior approach is made to the operative hip, the incision was made through the skin and subcutaneous tissue hemostasis was obtained with Bovie cautery. Using careful sharp dissection the fascia was identified and incised exposing the external rotators. Patient had a portion of the greater trochanteric fractured off. This was a small sliver of bone with some gluteus medius attached, this was excised. Medius was later reattached to remaining trochanter. The femoral checkpoint was placed leg length was measured at this time utilizing robotic assistance. The external rotators were released off the greater trochanter and tagged with #2 FiberWire suture. The capsule was T'd open and the hip was brought into internal rotation. Femoral head was removed without incident. An anterior capsulotomy was performed for the anterior retractor. Soft tissues removed from the acetabulum. The acetabulum checkpoint was placed confirmed. The acetabulum was then mapped with robotic assistance. Based on the preoperative plan the acetabulum was reamed in one step with a 51 reamer. The 52 acetabulum was impacted with robotic assistance and 45 degrees of abduction and 25 degrees of anteversion. The hip was brought back in to internal rotation and prepared with the sweat box attendant followed by the canal finder followed by the reaming process to a size 9/ 10 broaching process in 20 degrees anteversion. It was broached up to the appropriate size 10. Trial reduction revealed leg lengths close to normal. The femoral implant was impacted in place in 20 degrees of anteversion. Trial reduction found the hip to be stable with 4 head and Pita. The trials were removed and the real implants were impacted in place. The hip was reduced, patient had robotic confirmed leg length of 1 mm shorter than the contralateral side. The hip had excellent stability with forward flexion to 90 degrees adduction of 30 degrees and internal rotation of 60 degrees. The hip had no shuck. The gluteus medius was reattached with #2 FiberWire suture in a whipstitch type fashion The hips after 2 minutes with a antibacterial. It was irrigated out with 2 L of pulse irrigation. The checkpoints were removed, Steinmann pins were removed. The deep tissue was irrigated and closed deep with #1 PDS suture superficially with 0 PDS suture and skin was closed with Dermabond and skin thiago. The patient was placed in a sterile dressing and abduction pillow. The patient was extubated and transferred to the recovery room in stable condition. Anesthesia: GETA Surgeon: Kendell Eli Was there an golf course assistant present: No Estimated blood loss (cc): 200 Condition: stable Disposition: PACU
[2018-05-06] MEDS: *HR* HYDROmorphone (PF) 1 MG/ML SYRINGE IVP PRN ×2 (09:45→09:50)
[2018-05-06 10:08] LABS: Hematocrit 26.3 % (35.3-44.9); Hemoglobin 8.6 g/dL (11.5-15.4)
--- NOTE | 2018-05-06 10:18 | Anesthesia Evaluation Post Op ---
Date of Encounter: 05/06/18 Time of Encounter: 10:17 - Vital Signs Vital Signs: Vital Signs Vital Signs Assessment Start: 05/03/18 14:59 Freq: Q1H Status: Complete Protocol: Activity Type Activity Date Activity User E-Sign Co-Sign Detail Recorded Client Recorded Date Recorded By [email or web address] 05/03/18 14:59 DKK [id number] 05/03/18 14:59 DKK Document 05/04/18 14:55 [id number] 05/04/18 16:12 HJT Document 05/04/18 17:48 [facility] [id number] 05/04/18 17:49 [facility] 05/04/18 05/04/18 14:55 17:48 Vital Signs with MEWS [Temperature] -Temperature (97.6 F-99.6 F) 98.9 F 99.0 F -Temperature Source Oral Oral [Pulse] -Pulse Rate (beats/min) 94 94 [Respirations] -Respiratory Rate (breaths/min) 16 16 -Pulse Oximetry (%) 96 97 -Oxygen Delivery Method Room Air Room Air [Blood Pressure] -Blood Pressure (mm Hg) 136/78 127/65 -Blood Pressure Location Right Arm -Source Automatic Cuff Automatic Cuff -Position Supine [MEWS Score] -Neuro Status *recalled from last Alert Alert documentation -MEWS Score 1 1 Vital Signs Assessment Start: 05/03/18 15:33 Freq: Q4H Status: Complete Protocol: Activity Type Activity Date Activity User E-Sign Co-Sign Detail Recorded Client Recorded Date Recorded By [email or web address] 05/03/18 15:35 SAF [id number] 05/03/18 15:35 BKG DAEMON Document 05/04/18 19:53 [facility] [id number] 05/04/18 19:58 [facility] Document 05/05/18 22:24 [facility] [id number] 05/05/18 22:29 [facility] 05/04/18 05/05/18 19:53 22:24 Vital Signs with MEWS [Temperature] -Temperature (97.6 F-99.6 F) 98.4 F 99.2 F -Temperature Source Oral Oral [Pulse] -Pulse Rate (beats/min) 91 87 [Respirations] -Respiratory Rate (breaths/min) 16 17 -Pulse Oximetry (%) 97 97 -Oxygen Delivery Method Room Air Room Air [Blood Pressure] -Blood Pressure (mm Hg) 110/66 119/65 -Blood Pressure Location Right Arm Right Arm -Source Automatic Cuff Automatic Cuff -Position HOB Elevated HOB Elevated [MEWS Score] -Neuro Status *recalled from last Alert Alert documentation -MEWS Score 1 1 Vital Signs Assessment Start: 05/04/18 21:42 Freq: Q4H Status: Active Protocol: Activity Type Activity Date Activity User E-Sign Co-Sign Detail Recorded Client Recorded Date Recorded By Created 05/04/18 21:42 LINDA [id number] 05/04/18 21:42 LINDA Document 05/04/18 23:48 YANI [id number] 05/04/18 23:51 YANI Document 05/05/18 04:26 YANI [id number] 05/05/18 04:31 YANI Document 05/05/18 07:32 SLF [id number] 05/05/18 07:32 SLF Document 05/05/18 09:57 SLF [id number] 05/05/18 09:58 SLF Document 05/05/18 15:57 SLF [id number] 05/05/18 15:58 SLF Document 05/06/18 01:04 SMG [id number] 05/06/18 01:07 SMG Document 05/06/18 05:01 SMG [id number] 05/06/18 05:06 SMG Document 05/06/18 06:48 APF [id number] 05/06/18 06:57 APF 05/04/18 05/05/18 05/05/18 23:48 04:26 07:32 Vital Signs with MEWS [Temperature] -Temperature (97.6 F-99.6 F) 99.0 F 98.3 F 98.0 F -Temperature Source Oral Oral Oral [Pulse] -Pulse Rate (beats/min) 90 94 83 [Respirations] -Respiratory Rate (breaths/min) 16 16 16 -Pulse Oximetry (%) 98 97 97 -Oxygen Delivery Method Room Air Room Air Room Air [Blood Pressure] -Blood Pressure (mm Hg) 126/72 108/64 118/58 -Blood Pressure Location Right Arm Right Arm Right Arm -Source Automatic Cuff Automatic Cuff Automatic Cuff -Position HOB Elevated HOB Elevated HOB Elevated [MEWS Score] -Neuro Status *recalled from last Alert Alert Alert documentation -MEWS Score 1 1 1 09/04/18 09/04/18 09/05/18 09:57 15:57 01:04 Vital Signs with MEWS [Temperature] -Temperature (97.6 F-99.6 F) 98.3 F 98.5 F 99.4 F -Temperature Source Oral Oral Oral [Pulse] -Pulse Rate (beats/min) 101 90 85 [Respirations] -Respiratory Rate (breaths/min) 16 16 15 -Pulse Oximetry (%) 98 95 99 -Oxygen Delivery Method Room Air Room Air Room Air [Blood Pressure] -Blood Pressure (mm Hg) 116/66 140/62 109/67 -Blood Pressure Location Right Arm -Source Automatic Cuff -Position HOB Elevated HOB Elevated HOB Elevated [MEWS Score] -Neuro Status *recalled from last Alert Alert Alert documentation -MEWS Score 2 1 1 05/06/18 05/06/18 05:01 06:48 Vital Signs with MEWS [Temperature] -Temperature (97.6 F-99.6 F) 99.1 F 98.9 F -Temperature Source Oral Oral [Pulse] -Pulse Rate (beats/min) 85 86 [Respirations] -Respiratory Rate (breaths/min) 16 15 -Pulse Oximetry (%) 95 100 -Oxygen Delivery Method Room Air Room Air [Blood Pressure] -Blood Pressure (mm Hg) 125/69 122/70 -Blood Pressure Location Right Arm Right Arm -Source Automatic Cuff Automatic Cuff -Position HOB Elevated HOB Elevated [MEWS Score] -Neuro Status *recalled from last Alert Alert documentation -MEWS Score 1 1 Temp Pulse Resp BP Pulse Ox 05/06/18 10:07 80 16 155/77 98 05/06/18 09:47 98.5 F 83 16 142/80 100 05/06/18 09:37 79 16 148/88 97 05/06/18 09:27 80 16 153/77 97 05/06/18 09:17 97.9 F 93 16 162/85 99 05/06/18 06:48 98.9 F 86 15 122/70 100 05/06/18 05:01 99.1 F 85 16 125/69 95 05/06/18 01:04 99.4 F 85 15 109/67 99 05/05/18 22:24 99.2 F 87 17 119/65 97 05/05/18 15:57 98.5 F 90 16 140/62 95 05/05/18 09:57 98.3 F 101 16 116/66 98 05/05/18 07:32 98.0 F 83 16 118/58 97 05/05/18 04:26 98.3 F 94 16 108/64 97 05/04/18 23:48 99.0 F 90 16 126/72 98 05/04/18 19:53 98.4 F 91 16 110/66 97 05/04/18 17:48 99.0 F 94 16 127/65 97 05/04/18 14:55 98.9 F 94 16 136/78 96 05/04/18 08:00 99 05/04/18 07:51 99.4 F 100 18 130/78 94 05/04/18 03:12 99 F 97 20 131/74 96 05/03/18 23:37 99.4 F 93 18 130/73 98 05/03/18 20:05 104 05/03/18 19:21 99.6 F 104 18 132/68 97 05/03/18 17:00 87 16 94 05/03/18 15:22 91 05/03/18 15:04 99.2 F 89 17 133/70 99 - Lungs Lungs: Clear Ascult./Percussion - Airway Airway: Non-obstructed - Cardiovascular Regular Rate - Mental Status Mental Status: Alert & Oriented, Answers Appropriately - Pain Pain Scale: 8 (pt sleeping) Pain Scale used: Numeric (1 - 10) - Nausea Vomiting Nausea Vomiting: Not Present - Hydration Hydration: Tolerates oral liquids - Discharge PostOp Status: Transfer Patient to floor
[2018-05-06] MEDS ORDERED: *HR* OxyCODONE/APAP 5/325 TABLET PO PRN (10:41)
[2018-05-06] MEDS ORDERED: MOM Conc 10 ML UD.LIQ PO PRN (10:41)
[2018-05-06] MEDS ORDERED: Acetaminophen 325 MG TABLET PO PRN (10:41)
[2018-05-06] MEDS ORDERED: *HR* LORazepam 2 MG/ML VIAL IVP PRN ×3 (10:41)
[2018-05-06] MEDS ORDERED: Naloxone 0.4 MG/ML INJ IVP PRN (10:41)
[2018-05-06] MEDS ORDERED: Ringers Solution, Lactated 1,000 ML IVC SCH (10:41)
[2018-05-06] MEDS ORDERED: Temazepam 15 MG CAPSULE PO PRN (10:41)
[2018-05-06] MEDS ORDERED: traMADol 50 MG TABLET PO PRN (10:41)
[2018-05-06] MEDS ORDERED: Sennosides 8.6 MG TABLET PO PRN (10:41)
[2018-05-06] MEDS ORDERED: Ipratropium/Albuterol Neb 3 ML IH PRN (10:41)
[2018-05-06] MEDS ORDERED: Ondansetron 4 MG/2 ML VIAL IVP PRN (10:41)
[2018-05-06] MEDS: Vitamin B Complex/Vit C/Vit E 1 EACH TABLET PO SCH (11:33)
[2018-05-06] MEDS: Folic Acid 1 MG TABLET PO SCH (11:33)
[2018-05-06] MEDS: Cyanocobalamin (B-12) 1,000 MCG TABLET PO SCH (11:34)
[2018-05-06] MEDS: Thiamine (B-1) 100 MG TABLET PO SCH (11:34)
[2018-05-06] MEDS ORDERED: *HR* Morphine 2 MG/ML SYRINGE IVP PRN (12:00)
[2018-05-06] MEDS: Multivit/Ca/Min/Fe/FA 1 TAB TABLET PO SCH (12:11)
[2018-05-06] MEDS: Ascorbic Acid 500 MG TABLET PO SCH ×2 (12:11→15:44)
[2018-05-06] MEDS: Cholecalciferol (D-3) 1,000 UNIT TABLET PO SCH (12:12)
--- NOTE | 2018-05-06 13:22 | Nephrology Progress Note ---
Date of Encounter: 05/06/18 Time of Encounter: 13:00 - Assessment and Plan (1) Hyponatremia Current Visit: Yes Status: Acute Acute on chronic hyponatremia, largely resolved. Sodium 130 Etiology - beer potomania + malnutrition. Final recommendations: -Continue PO NaCl 1g BID -Repeat BMP in 1 Week -Follow-up with Nephrology in 2-4weeks -Encourage adequate nutritional intake Nephrology will sign off at this time. Thank you for involving us in the care of this patient! Please call us for any concerns. (2) Metabolic acidosis Current Visit: Yes Status: Resolved Resolved Suspected secondary to starvation ketosis (3) Alcoholism /alcohol abuse Current Visit: Yes Status: Chronic Chronic alcohol use, primarily beer Patient does not indicate intention to stop using beer (4) Closed left hip fracture Current Visit: Yes Status: Acute S/p Left Total Hip Qualifiers: Encounter type: initial encounter Qualified Code(s): S72.002A - Fracture of unspecified part of neck of left femur, initial encounter for closed fracture Subjective Principal diagnosis: L. Hip Fracture Interval history: Patient is resting in bed at time of examination s/p ORIF. She has no acute complaints. Objective - Vital Signs Vital signs: Vital Signs Temp Pulse Resp BP Pulse Ox 05/06/18 12:49 97.5 F L 84 16 128/66 98 05/06/18 12:00 97.5 F L 82 16 109/65 100 05/06/18 11:11 97.5 F L 80 16 129/69 100 05/06/18 11:09 100 05/06/18 10:50 97.5 F L 84 16 127/69 97 05/06/18 10:27 98.4 F 74 16 144/77 100 05/06/18 10:17 98.4 F 72 16 144/76 100 05/06/18 10:07 80 16 155/77 98 05/06/18 09:47 98.5 F 83 16 142/80 100 05/06/18 09:37 79 16 148/88 97 05/06/18 09:27 80 16 153/77 97 05/06/18 09:17 97.9 F 93 16 162/85 99 05/06/18 06:48 98.9 F 86 15 122/70 100 05/06/18 05:01 99.1 F 85 16 125/69 95 05/06/18 01:04 99.4 F 85 15 109/67 99 05/05/18 22:24 99.2 F 87 17 119/65 97 05/05/18 15:57 98.5 F 90 16 140/62 95 Intake and Output 05/05/18 05/06/18 05/06/18 23:59 07:59 15:59 Intake Total 360 / 360 Output Total 1050 / 1050 700 / 700 350 / 350 Balance -690 / -690 -700 / -700 -350 / -350 Intake: Oral 360 / 360 Output: Estimated Blood Loss 200 / 200 Urine Amount (Catheter) 150 / 150 Catheter 1050 / 1050 700 / 700 Other: Meal Dinner npo Percent of Meal Consumed 90% - General Appearance Exam: Gen: Vitals noted. No acute distress. Frail appearing woman, extremely thin. HEENT: Normocephalic, atraumatic. Neck: Supple. No adenopathy. Cardiac: RRR, no murmur, +S1/S2 Pulmonary: CTA bilaterally, no wheezes, rales or rhonchi, equal chest expansion Abdomen: soft, nontender, no guarding Skin: The patient is highly vascular. MSK: Left hip s/p Total Hip Extremities: no BLE edema, nontender calf, no cyanosis or clubbing Neuro: moves all extremities, no focal deficits. A&Ox3 Psych: Appropriate mood and behavior - Lab 05/06/18 09:44 05/06/18 01:17 Most recent lab results Calcium 8.7 mg/dL (8.6-10.3) 05/06/18 01:17 Phosphorus 2.2 mg/dL (2.7-4.5) L 05/04/18 05:42 Magnesium 1.7 mg/dL (1.6-2.6) 05/04/18 05:42 - VTE Documentation of Mechanical Device: Venous foot pump, device Consult Discharge Plan - Plan Referrals: Kelly Rojas MD [Primary Care Provider] -
[2018-05-06] MEDS: *HR* OxyCODONE Immed Rel 5 MG TABLET PO PRN (14:08)
--- NOTE | 2018-05-06 14:17 | Internal Med Progress Note ---
Hospitalist Progress Note - Encounter Date of Encounter: 05/06/18 Time of Encounter: 10:45 - Subjective Interval History: back from OR. left hip pain present. no nausea, vomiting, sob or cp. Feeling hungry. no gas or bm as of yet. No lethargy or confusion - Exam Vitals: Temp Pulse Resp BP Pulse Ox 97.8 F 106 14 134/65 94 05/06/18 14:11 05/06/18 14:11 05/06/18 14:11 05/06/18 14:11 05/06/18 14:11 Exam: General: awake, alert, appears stated age HEENT:EOM intact, pupils equal, round, moist mucus membranes, clear oropharynx Cardiovascular:regular rate and rhythm, normal S1 & S2, no rubs, murmurs or gallops. DP/PT pulses 2+, no lower extremity edema Lungs:Normal breath sounds, no wheezes, or crackles. Normal respiratory effort Abdomen:Soft, non-tender, non-distended, + bowel sounds Extremities: rom left ankle/toes intact and painless Neurological: AAOx3, sensation to light touch intact and equal in bl le Skin:Normal color, no rash, no pallor - Assessment and Plan (1) Hyponatremia Current Visit: Yes Status: Acute Assessment and Plan: Acute on Chronic Hyponatremia likely hypovolemic from dehydration vs related to alcohol abuse with chronic beer use/ beer potomania. Overcorrected initially -nephro following -on D5W and correction now at appropriate rate -fu nephro recs re when can dc D5W -no neuro deficits -TSH and random cortisol came back WNL -cont to monitor (2) Closed intertrochanteric fracture of left hip Current Visit: No Status: Resolved Assessment and Plan: Left hip fracture s/p fall. -Hip xray showed comminuted foreshortened, displaced angulated intertrochanteric fracture of the proximal left femur with suspected hematoma. -Orthopedic surgery consulted - Pain control PRN -Left total hip replacement 05/06. Dr Eli -post op care as per ortho (3) Rhabdomyolysis Current Visit: Yes Status: Acute Assessment and Plan: CPK levels elevated at 1600. -on IV fluids. -Daily CPK down trending -nephro following (4) DVT prophylaxis Current Visit: Yes Status: Acute Assessment and Plan: Heparin sc held for OR scd in place awaiting ortho rec for when to resume and dc vte ppx rec (5) Acute alcohol abuse Current Visit: Yes Status: Chronic Assessment and Plan: Alcohol levels levels were elevated at 166 on admit -currently no signs of withdrawal. -on CIWA protocol -on thiamine, folic acid daily + additional vitamin supp for B12 (6) Vitamin B12 deficiency Current Visit: Yes Status: Acute Assessment and Plan: Received one dose of IM B12 supplementation. Continue on po vitamin B12 daily (7) COPD (chronic obstructive pulmonary disease) Current Visit: No Status: Chronic Assessment and Plan: stable. Nebs PRN - Time Spent with Patient Total time spent is greater than 50% in coordination of care (as documented) at patient's floor/unit and/or counseling patient: 25 - 35 minutes Plan of Care Discussed with: patient Internal Medicine: Result - Labs CBC & Chem 7: 05/06/18 09:44 05/06/18 01:17 Labs: Short CBC 05/06/18 05/06/18 Range/Units 01:17 09:44 WBC 6.7 (4.3-11.1) K/mcL Hgb 8.8 L 8.6 L (11.5-15.4) g/dL Hct 26.7 L 26.3 L (35.3-44.9) % Plt Count 256 (140-400) K/mcL Neutrophils # 4.0 (1.6-8.9) K/mcL BMP 05/06/18 01:17 Sodium 130 L Potassium 3.2 L Chloride 99 Carbon Dioxide 27 BUN 3 L Creatinine 0.30 L Glucose 105 Calcium 8.7 - Impressions Impressions Hip X-Ray 05/06/18 07:35 IMPRESSION: Anatomic alignment status post recent left hip arthroplasty. No evidence of hardware complication. D/ / Elan Barton MD / Elan Barton MD Interpreting Provider: Elan Barton MD - VTE Documentation of Mechanical Device: Venous foot pump, device Consult Discharge Plan - Plan Referrals: Kelly Rojas MD [Primary Care Provider] - (2) Closed intertrochanteric fracture of left hip Qualifiers: Encounter type: initial encounter Fracture alignment: displaced Qualified Code(s): S72.142A - Displaced intertrochanteric fracture of left femur, initial encounter for closed fracture (3) Rhabdomyolysis Qualifiers: Rhabdomyolysis type: traumatic Encounter type: initial encounter Qualified Code(s): T79.6XXA - Traumatic ischemia of muscle, initial encounter (7) COPD (chronic obstructive pulmonary disease) Qualifiers: COPD type: emphysema Emphysema type: unspecified Qualified Code(s): J43.9 - Emphysema, unspecified
[2018-05-06] MEDS ORDERED: Aspirin Enteric Coated 81 MG Tablet PO SCH (18:00)
[2018-05-06] MEDS: Aspirin Enteric Coated 81 MG Tablet PO SCH (22:12)
[2018-05-07 01:37] LABS: Basophils % 0.2 %; Eosinophils % 0.1 %; Hematocrit 21.5 % (35.3-44.9); Hemoglobin 7.2 g/dL (11.5-15.4); Immature Granulocytes % 0.3 % (0-4); Lymphocytes # 1.5 K/mcL (0.6-4.6); Lymphocytes % 16.8 %; Mean Corpuscular HGB Conc 33.5 g/dL (31.6-35.5); Mean Corpuscular Hemoglobin 30.3 pg (28.0-33.3); Mean Corpuscular Volume 90.3 fL (83.0-100.0); Mean Platelet Volume 9.7 fL (9.4-12.4); Monocytes # 0.8 K/mcL (0.0-1.3); Monocytes % 9.4 %; Neutrophils # 6.3 K/mcL (1.6-8.9); Platelet Count 239 K/mcL (140-400); Red Blood Count 2.38 M/mcL (3.82-4.97); Red Cell Distribution Width 16.5 % (11.5-14.5); Segmented Neutrophils % 73.2 %
[2018-05-07 01:57] LABS: BUN/Creatinine Ratio 12 (6-26); Blood Urea Nitrogen 4 mg/dL (6-20); Calcium 8.3 mg/dL (8.6-10.3); Carbon Dioxide 24 mEq/L (23-29); Chloride 101 mEq/L (98-107); Creatine Kinase 518 Units/L (30-223); Glucose 129 mg/dL (70-105); Magnesium 1.7 mg/dL (1.6-2.6); Osmolality,Calculated 271 (280-300); Potassium 3.9 mEq/L (3.5-5.1); Sodium 131 mEq/L (136-145); eGFR For Non-African Americans > 60 (> 60)
[2018-05-07] MEDS: *HR* OxyCODONE Immed Rel 5 MG TABLET PO PRN ×4 (03:41→20:12)
[2018-05-07] MEDS ORDERED: Furosemide 20 MG/2 ML VIAL IVP ONE ×2 (06:27→16:58)
--- NOTE | 2018-05-07 06:29 | Orthopedics Progress Note ---
Date of Encounter: 05/07/18 Time of Encounter: 06:28 Subjective Principal diagnosis: L. Hip Fracture Interval history: Patient was seen this morning doing well without complaints. Afebrile vital signs stable. Operative extremity: Neurovascularly intact Dressing clean dry and intact Calves nontender Assessment and plan: Continue with postoperative care Hematocrit 21.5 transfuse 2 units Objective Vital signs: Vital Signs Temp Pulse Resp BP Pulse Ox 05/07/18 04:05 98.9 F 89 14 133/66 97 05/07/18 00:34 98.3 F 99 14 121/65 96 05/06/18 20:37 97.7 F 107 16 151/78 99 05/06/18 14:11 97.8 F 106 14 134/65 94 05/06/18 12:49 97.5 F L 84 16 128/66 98 05/06/18 12:00 97.5 F L 82 16 109/65 100 05/06/18 11:11 97.5 F L 80 16 129/69 100 05/06/18 11:09 100 05/06/18 10:50 97.5 F L 84 16 127/69 97 05/06/18 10:27 98.4 F 74 16 144/77 100 05/06/18 10:17 98.4 F 72 16 144/76 100 05/06/18 10:07 80 16 155/77 98 05/06/18 09:47 98.5 F 83 16 142/80 100 05/06/18 09:37 79 16 148/88 97 05/06/18 09:27 80 16 153/77 97 05/06/18 09:17 97.9 F 93 16 162/85 99 05/06/18 06:48 98.9 F 86 15 122/70 100 Intake and Output 05/06/18 05/06/18 05/07/18 15:59 23:59 07:59 Intake Total 440 / 440 Output Total 350 / 350 1250 / 1250 700 / 700 Balance -350 / -350 -810 / -810 -700 / -700 Intake: IV Fluids 200 / 200 Ancef 2,000 MG In 0.9 % Sodium 200 / 200 Chloride 100 ML @ 200 mls/hr IVPB Q8H [facility] Rx#:[id number] Oral 240 / 240 Output: Estimated Blood Loss 200 / 200 Urine Amount (Catheter) 150 / 150 Catheter 1250 / 1250 700 / 700 Other: Meal npo Dinner Percent of Meal Consumed 75% - Labs CBC & BMP: 05/07/18 01:23 05/07/18 01:23 Labs: Abnormal lab results RBC 2.38 M/mcL (3.82-4.97) L 05/07/18 01:23 Hgb 7.2 g/dL (11.5-15.4) L 05/07/18 01:23 Hct 21.5 % (35.3-44.9) L 05/07/18 01:23 RDW 16.5 % (11.5-14.5) H 05/07/18 01:23 Sodium 131 mEq/L (136-145) L 05/07/18 01:23 BUN 4 mg/dL (6-20) L 05/07/18 01:23 Creatinine 0.34 mg/dL (0.60-1.20) L 05/07/18 01:23 Glucose 129 mg/dL (70-105) H 05/07/18 01:23 Calculated Osmolality 271 (280-300) L 05/07/18 01:23 Calcium 8.3 mg/dL (8.6-10.3) L 05/07/18 01:23 Phosphorus 2.2 mg/dL (2.7-4.5) L 05/04/18 05:42 Creatine Kinase 518 Units/L (30-223) H 05/07/18 01:23 - VTE Documentation of Mechanical Device: Venous foot pump, device Consult Discharge Plan - Plan Referrals: Kelly Rojas MD [Primary Care Provider] -
[2018-05-07] MEDS ORDERED: NON-FORMULARY MEDICATION 1 EACH EACH (Alendronate Sodium [Fosamax] 70 MG) PO SCH (07:40)
[2018-05-07] MEDS: Vitamin B Complex/Vit C/Vit E 1 EACH TABLET PO SCH (08:20)
[2018-05-07] MEDS: Cyanocobalamin (B-12) 1,000 MCG TABLET PO SCH (08:21)
[2018-05-07] MEDS: Ascorbic Acid 500 MG TABLET PO SCH ×2 (08:21→15:55)
[2018-05-07] MEDS: Aspirin Enteric Coated 81 MG Tablet PO SCH ×2 (08:21→20:13)
[2018-05-07] MEDS: Multivit/Ca/Min/Fe/FA 1 TAB TABLET PO SCH (08:21)
[2018-05-07] MEDS: Folic Acid 1 MG TABLET PO SCH (08:21)
[2018-05-07] MEDS: Cholecalciferol (D-3) 1,000 UNIT TABLET PO SCH (08:21)
[2018-05-07] MEDS: Thiamine (B-1) 100 MG TABLET PO SCH (08:22)
[2018-05-07] MEDS ORDERED: 0.9 % Sodium Chloride 250 ML ONE ×2 (11:34→16:59)
--- NOTE | 2018-05-07 16:25 | Event Note ---
Date of Encounter: 05/07/18 Time of Encounter: 14:45 PCR - POD#1 s/p - Left Total Hip Replacment robotic-assisted 05/06/18 Patient seen at bedside, without complaints. A&O x 3 Afebrile, vital signs stable at time of visit. Dressings have small amount drainage visible to middle, appears old. no calf tenderness to palpation. Labs reviewed. H/H - 7.2/21.5 - receiving 2 units RBC today. Pain control: adequate Participating in PT. PT did recommend ECF placement however patient is refusing and wants to go home. All questions and concerns addressed. Educated on use of incentive spirometer. Encouraged ambulation and proper hydration. Patient educated on post-operative restrictions and post-operative care. Assessment and plan: Continue with postoperative care Discharge plan: plan for tomorrow if medically stable with home therapy
--- NOTE | 2018-05-07 17:11 | Physician Discharge Referral ---
<Rosanna Winters - Last Filed: 05/07/18 17:08> Home Health/Hosp Referral Info Transfer to: Home Health Attending Provider: Sreedhar - Diagnosis (1) Closed intertrochanteric fracture of left hip Priority: Primary Status: Resolved (2) DVT prophylaxis Priority: Secondary Status: Acute (3) Hyponatremia Priority: Secondary Status: Acute (4) Rhabdomyolysis Priority: Secondary Status: Acute (5) Vitamin B12 deficiency Priority: Secondary Status: Acute (6) Acute alcohol abuse Priority: Secondary Status: Chronic (7) Alcoholism /alcohol abuse Priority: Secondary Status: Chronic (8) Adjustment disorder with depressed mood Priority: Secondary Status: Acute (9) Anemia Priority: Secondary Status: Chronic (10) Back pain Priority: Secondary Status: Chronic (11) COPD (chronic obstructive pulmonary disease) Priority: Secondary Status: Chronic (12) Hypokalemia Priority: Secondary Status: Suspected - Respiratory Orders Smoking Cessation: Smoking cessation has been advised. For more information, call the [employer] Quit Line at 5-773-TSUN-NOW. - Diet/Nutrition Diet/Nutrition Orders: Regular - Activity Activity Orders: Ambulate, Chair - Services Needed Following services are medically necessary services: Physical Therapy, Occupational Therapy Other Treatments: Opsite dressing, leave intact until first post-operative visit. If dressing becomes >50% saturated, contact office, remove dressing and place appropriate dressing in its place. Do not allow for dressing to get wet. Zipline/Lissa in place, plan to remove at post-operative day #14-16. Total Joint Precautions x 6 weeks Apply cold therapy wrap 3-6x/day for 20 minutes at a time. Encourage ambulation throughout the day Use Incentive spirometer 10x/hour. Elevate affected extremity above heart as tolerated. Brace: Wear hip abductor brace at night x 6 weeks. - Transfer Medications Home Medications: Alendronate Sodium [Fosamax] 70 mg PO TH 05/03/18 [History] Calcium Carbonate/Vitamin D3 [Oyster Shell Calcium-Vit D Tab] 1 tab PO TID 05/03 [History] Allergies/Adverse Reactions: 3 Allergy/AdvReac Type Severity Reaction Status Date / Time No Known Allergies Allergy Verified 05/03/18 16:01 Certification: Further, I certify that my clinical findings support that this patient is homebound (i.e. absences from home require considerable and taxing effort and are for medical reasons or caodaism services or infrequently or short duration when for other reasons) because: Homebound Reason: Post-surgery restriction and or conditions limit ability to leave home Attestation: My signature below is to certify that this patient is under my care and that I, or nurse practitioner, or a physician anesthetic assistant working with me, has a face-to- face encounter with this patient. <Kendell Eli - Last Filed: 05/08/18 08:32> - Respiratory Orders Smoking Cessation: Smoking cessation has been advised. For more information, call the [place] [employer] Quit Line at 2-605-VBPVNOW. Certification: Further, I certify that my clinical findings support that this patient is homebound (i.e. absences from home require considerable and taxing effort and are for medical reasons or caodaism services or infrequently or short duration when for other reasons) because: Attestation: My signature below is to certify that this patient is under my care and that I, or nurse practitioner, or a physician's anesthetic assistant working with me, has a face-to -face encounter with this patient.
--- NOTE | 2018-05-07 19:48 | Internal Med Progress Note ---
Hospitalist Progress Note - Encounter Date of Encounter: 05/07/18 Time of Encounter: 08:10 - Subjective Interval History: awake, + hip pain, no tremors, nausea, palpitations or anxiety after one time dose of ativan for etoh wd last night. feeling better today. no confusion or lethargy - Exam Vitals: Temp Pulse Resp BP Pulse Ox 99.8 F H 89 15 169/80 97 05/07/18 17:19 05/07/18 17:19 05/07/18 17:19 05/07/18 17:19 05/07/18 17:04 Exam: General: awake, alert, appears stated age HEENT:EOM intact, pupils equal, round, moist mucus membranes, clear oropharynx Cardiovascular:regular rate and rhythm, normal S1 & S2, no rubs, murmurs or gallops. DP/PT pulses 2+, no lower extremity edema Lungs:Normal breath sounds, no wheezes, or crackles. Normal respiratory effort Extremities: rom left ankle/toes intact and painless Neurological: AAOx3, sensation to light touch intact and equal in bl le Skin:Normal color, no rash, no pallor - Assessment and Plan (1) Hyponatremia Current Visit: Yes Status: Acute Assessment and Plan: Acute on Chronic Hyponatremia likely hypovolemic from dehydration vs related to alcohol abuse with chronic beer use/ beer potomania. Overcorrected initially -nephro following -on D5W and corrected then at appropriate rate now off IVFS and cont to slowlyuptrend -on nacl tabs now -no neuro deficits -TSH and random cortisol came back WNL -cont to monitor (2) Closed intertrochanteric fracture of left hip Current Visit: No Status: Resolved Assessment and Plan: Left hip fracture s/p fall. -Hip xray showed comminuted foreshortened, displaced angulated intertrochanteric fracture of the proximal left femur with suspected hematoma. -Orthopedic surgery consulted - Pain control PRN -Left total hip replacement 05/06. Dr Eli -post op care as per ortho (3) Rhabdomyolysis Current Visit: Yes Status: Acute Assessment and Plan: CPK levels elevated at 1600. -on IV fluids. - CPK down trening overall -nephro following (4) DVT prophylaxis Current Visit: Yes Status: Acute Assessment and Plan: aspirin bid as per ortho surg (5) Acute alcohol abuse Current Visit: Yes Status: Chronic Assessment and Plan: Alcohol levels levels were elevated at 166 on admit -mild etoh w/d symptoms last evening, now resolved -on CIWA protocol -on thiamine, folic acid daily + additional vitamin supp for B12 (6) Vitamin B12 deficiency Current Visit: Yes Status: Acute Assessment and Plan: Received one dose of IM B12 supplementation. Continue on po vitamin B12 daily (7) COPD (chronic obstructive pulmonary disease) Current Visit: No Status: Chronic Assessment and Plan: stable. Nebs PRN (8) Severe protein-calorie malnutrition Current Visit: Yes Status: Acute Assessment and Plan: BMI: 15.5. in context of social/environmental issues - inadequate food/beverage intake d/t ETOH abuse as evidenced by BMI and Deltoid and calf muscle wasting, tricep fat wasting and cellophage appearing skin clinically unable to determine degree/type of malnutrition dietary following - Time Spent with Patient Total time spent is greater than 50% in coordination of care (as documented) at patient's floor/unit and/or counseling patient: 25 - 35 minutes Plan of Care Discussed with: patient Internal Medicine: Result - Labs CBC & Chem 7: 05/07/18 01:23 05/07/18 01:23 Labs: Short CBC 05/07/18 Range/Units 01:23 WBC 8.7 (4.3-11.1) K/mcL Hgb 7.2 L (11.5-15.4) g/dL Hct 21.5 L (35.3-44.9) % Plt Count 239 (140-400) K/mcL Neutrophils # 6.3 (1.6-8.9) K/mcL BMP 05/07/18 01:23 Sodium 131 L Potassium 3.9 Chloride 101 Carbon Dioxide 24 BUN 4 L Creatinine 0.34 L Glucose 129 H Calcium 8.3 L - VTE Documentation of Mechanical Device: Venous foot pump, device Consult Discharge Plan - Plan Referrals: Kelly Rojas MD [Primary Care Provider] - (2) Closed intertrochanteric fracture of left hip Qualifiers: Encounter type: initial encounter Fracture alignment: displaced Qualified Code(s): S72.142A - Displaced intertrochanteric fracture of left femur, initial encounter for closed fracture (3) Rhabdomyolysis Qualifiers: Rhabdomyolysis type: traumatic Encounter type: initial encounter Qualified Code(s): T79.6XXA - Traumatic ischemia of muscle, initial encounter (7) COPD (chronic obstructive pulmonary disease) Qualifiers: COPD type: emphysema Emphysema type: unspecified Qualified Code(s): J43.9 - Emphysema, unspecified
[2018-05-07 21:27] LABS: Hematocrit 30.9 % (35.3-44.9)
[2018-05-07 21:32] LABS: Hemoglobin 10.6 g/dL (11.5-15.4)
[2018-05-08 02:50] LABS: Basophils # 0.1 K/mcL (0.0-0.2); Basophils % 0.8 %; Eosinophils # 0.1 K/mcL (0.0-0.6); Eosinophils % 1.4 %; Hemoglobin 10.7 g/dL (11.5-15.4); Immature Granulocytes % 0.6 % (0-4); Lymphocytes # 2.3 K/mcL (0.6-4.6); Lymphocytes % 24.6 %; Mean Corpuscular HGB Conc 33.4 g/dL (31.6-35.5); Mean Corpuscular Hemoglobin 29.2 pg (28.0-33.3); Mean Corpuscular Volume 87.2 fL (83.0-100.0); Mean Platelet Volume 9.7 fL (9.4-12.4); Monocytes # 1.1 K/mcL (0.0-1.3); Monocytes % 12.2 %; Neutrophils # 5.6 K/mcL (1.6-8.9); Nucleated Red Blood Cells 0.4 /100 WBC (0); Platelet Count 240 K/mcL (140-400); Red Blood Count 3.67 M/mcL (3.82-4.97); Segmented Neutrophils % 60.4 %
[2018-05-08 02:53] LABS: INR 1.1; Prothrombin Time 12.3 Seconds (9.4-12.1)
--- NOTE | 2018-05-08 08:33 | Orthopedics Progress Note ---
Date of Encounter: 05/08/18 Time of Encounter: 08:32 Subjective Principal diagnosis: L. Hip Fracture Interval history: Patient was seen this morning doing well without complaints. Afebrile vital signs stable. Operative extremity: Neurovascularly intact Dressing clean dry and intact Calves nontender Assessment and plan: Continue with postoperative care Hematocrit 32 stable for dc Objective Vital signs: Vital Signs Temp Pulse Resp BP Pulse Ox 05/08/18 07:18 98.7 F 94 18 150/82 97 05/08/18 00:11 99.2 F 94 16 132/71 94 05/07/18 21:16 98.4 F 106 18 112/67 96 05/07/18 19:46 98.4 F 96 16 112/67 96 05/07/18 17:19 99.8 F H 89 15 169/80 05/07/18 17:04 99.9 F H 93 15 134/69 97 05/07/18 15:07 99.8 F H 103 16 100 05/07/18 15:05 99.8 F H 103 16 132/70 100 05/07/18 12:10 98.1 F 98 18 144/71 05/07/18 11:55 98.1 F 99 17 122/73 Intake and Output 05/07/18 05/08/18 05/08/18 23:59 07:59 15:59 Intake Total 350 / 350 500 / 500 Balance 350 / 350 500 / 500 Intake: Oral 500 / 500 Blood Product 350 / 350 Rbcs Leuko Poor As-1 Unit 350 / 350 [id number] Other: Stool Size Small Stool Consistency soft Stool Characteristics Normal for Patient Stool Color Brown # Voids 500 - Labs CBC & BMP: 05/08/18 02:19 05/07/18 01:23 Labs: Abnormal lab results RBC 3.67 M/mcL (3.82-4.97) L 05/08/18 02:19 Hgb 10.7 g/dL (11.5-15.4) L 05/08/18 02:19 Hct 32.0 % (35.3-44.9) L 05/08/18 02:19 RDW 16.0 % (11.5-14.5) H 05/08/18 02:19 Nucleated RBCs/100 WBC 0.4 /100 WBC (0) H 05/08/18 02:19 PT 12.3 Seconds (9.4-12.1) H 05/08/18 02:19 Sodium 131 mEq/L (136-145) L 05/07/18 01:23 BUN 4 mg/dL (6-20) L 05/07/18 01:23 Creatinine 0.34 mg/dL (0.60-1.20) L 05/07/18 01:23 Glucose 129 mg/dL (70-105) H 05/07/18 01:23 Calculated Osmolality 271 (280-300) L 05/07/18 01:23 Calcium 8.3 mg/dL (8.6-10.3) L 05/07/18 01:23 Phosphorus 2.2 mg/dL (2.7-4.5) L 05/04/18 05:42 Creatine Kinase 351 Units/L (30-223) H 05/08/18 02:19 - VTE Documentation of Mechanical Device: Intermittent pneumatic compression device Consult Discharge Plan - Plan Referrals: Kelly Rojas MD [Primary Care Provider] -
[2018-05-08] MEDS: Multivit/Ca/Min/Fe/FA 1 TAB TABLET PO SCH (10:00)
[2018-05-08] MEDS: Cholecalciferol (D-3) 1,000 UNIT TABLET PO SCH (10:00)
[2018-05-08] MEDS: Vitamin B Complex/Vit C/Vit E 1 EACH TABLET PO SCH (10:00)
[2018-05-08] MEDS: Aspirin Enteric Coated 81 MG Tablet PO SCH (10:00)
[2018-05-08] MEDS: Thiamine (B-1) 100 MG TABLET PO SCH (10:00)
[2018-05-08] MEDS: Cyanocobalamin (B-12) 1,000 MCG TABLET PO SCH (10:00)
[2018-05-08] MEDS: Folic Acid 1 MG TABLET PO SCH (10:00)
[2018-05-08] MEDS: Ascorbic Acid 500 MG TABLET PO SCH (10:00)
[2018-05-08 11:35] VITALS: BP 145/81
--- NOTE | 2018-05-08 12:37 | Discharge Summary ---
- NOTES TO OUTPATIENT PROVIDER Notes to Outpatient Provider: She ws followed by Nephro for hyponatremia. They started Nacl BID and she will need a BMP in one week and nephro follow up in 2 weeks. She will follow up with Dr Eli for post op care. She was also rx B12 supplement for deficiency. Repeat testing outpt. Date of Encounter: 05/08/18 Time of Encounter: 09:00 - Discharge Diagnosis (1) Hyponatremia Priority: Secondary Status: Acute Assessment and Plan: Acute on Chronic Hyponatremia likely hypovolemic from dehydration vs related to alcohol abuse with chronic beer use/ beer potomania. Overcorrected initially -nephro followed throughout-- slowed correction with D5W and corrected then at appropriate rate -has been mainting stable Na levels off IVF and on nacl tabs increased from home dosing as per nephro recs -no neuro deficits throughout admission -TSH and random cortisol WNL -she requires a BMP in one week with PCP follow up and then to see Nephro in 2 weeks -pt educated as to dc plans and verbalized good understanding (2) Closed intertrochanteric fracture of left hip Priority: Primary Status: Resolved Assessment and Plan: Left hip fracture s/p fall. -Hip xray showed comminuted foreshortened, displaced angulated intertrochanteric fracture of the proximal left femur with suspected hematoma. -Orthopedic surgery consulted -Left total hip replacement 05/06. Dr Eli -post op care as per ortho -received post op prbc for hgb 7.2 with appropriate response and no further drops in hgb -fu with dr Eli and post op care at home as per ortho -cont VTE ppx with asa on dc, 10 d rx given Qualifiers: Encounter type: initial encounter Fracture alignment: displaced Qualified Code(s): S72.142A - Displaced intertrochanteric fracture of left femur , initial encounter for closed fracture (3) Rhabdomyolysis Priority: Secondary Status: Acute Assessment and Plan: CPK levels elevated at 1600. Greatly improved throughout admission, 300s on dc -treated with IVF as above -nephro followed Qualifiers: Rhabdomyolysis type: traumatic Encounter type: initial encounter Qualified Code(s): T79.6XXA - Traumatic ischemia of muscle, initial encounter (4) DVT prophylaxis Priority: Secondary Status: Acute Assessment and Plan: aspirin bid as per ortho surg on dc (5) Acute alcohol abuse Priority: Secondary Status: Chronic Assessment and Plan: Alcohol levels levels were elevated at 166 on admit -mild etoh w/d symptoms on one occassion, given one time ativan and then no further s/s of withdrawal -do not feel this was active withdrawal but rather anxiety episode. -maintained on CIWA protocol and no other needs -on thiamine, folic acid daily + additional vitamin supp for B12 (6) Vitamin B12 deficiency Priority: Secondary Status: Acute Assessment and Plan: Received one dose of IM B12 supplementation. Continue on po vitamin B12 daily with outpt fu (7) COPD (chronic obstructive pulmonary disease) Priority: Secondary Status: Chronic Assessment and Plan: stable throughout admit Qualifiers: COPD type: emphysema Emphysema type: unspecified Qualified Code(s): J43.9 - Emphysema, unspecified (8) Severe protein-calorie malnutrition Priority: Secondary Status: Acute Assessment and Plan: BMI: 15.5. in context of social/environmental issues - inadequate food/beverage intake d/t ETOH abuse as evidenced by BMI and Deltoid and calf muscle wasting, tricep fat wasting and cellophage appearing skin clinically unable to determine degree/type of malnutrition dietary assessed here education provided Hospital course: Ms. Rao is a 57 year old female who presented with hip fracture and hyponatremia with details documented above. Sodium improved and rate corrected to appropriate increase with assistance of nephrology. Hip repair preformed by dr Eli. Ms Rao did receive prbc after surgery for hgb 7.2 which responded appropriately to treatment and remained table there after. She has hx of chronic etoh use and she did not actively w/d from etoh this admission. She was diagnosed with nutritional deficiencies this admission most likely related to her etoh use. Full detils of course as documented above in a/p. PT rec for snf but pt refused placement. home with [facility] Discharge discussed with: patient - Time Spent with Patient Total time spent providing and/or coordinating discharge services: Greater than 30 minutes - Discharge Medications Prescriptions: OxyCODONE/APAP 5/325 [Percocet 5/325 MG] 1 each PO Q6HR PRN 5 Days #20 tablet PRN Reason: Severe Pain Aspirin Enteric Coated [Aspirin EC] 162 mg PO BID 10 Days #20 tablet. Cyanocobalamin (B-12) [Vitamin B12] 1,000 mcg PO DAILY 30 Days #30 tablet Docusate [Colace] 100 mg PO BID 7 Days #14 capsule Ferrous Sulfate 325 mg PO BIDWM 14 Days #28 tablet Sodium Chloride [Sodium Chloride Tab] 1 gm PO BID 14 Days #28 tablet Home Medications: Alendronate Sodium [Fosamax] 70 mg PO TH 05/03/18 [History] Calcium Carbonate/Vitamin D3 [Oyster Shell Calcium-Vit D Tab] 1 tab PO TID 05/03 [History] Aspirin Enteric Coated [Aspirin EC] 162 mg PO BID 10 Days #20 tablet.dr [Rx] Calcium Carbonate [Tums] 500 mg PO TID tab.chew 05/08/18 [Rx] Cyanocobalamin (B-12) [Vitamin B12] 1,000 mcg PO DAILY 30 Days #30 tablet [Rx] Docusate [Colace] 100 mg PO BID 7 Days #14 capsule 05/08/18 [Rx] Ferrous Sulfate 325 mg PO BIDWM 14 Days #28 tablet 05/08/18 [Rx] Folic Acid 1 mg PO DAILY tablet 05/08/18 [Rx] Multivit/Ca/Min/Fe/FA [Thera M Plus] 1 tab PO DAILY tablet 05/08/18 [Rx] OxyCODONE/APAP 5/325 [Percocet 5/325 MG] 1 each PO Q6HR PRN 5 Days #20 tablet [Rx] Sodium Chloride [Sodium Chloride Tab] 1 gm PO BID 14 Days #28 tablet 05/08/18 [ Rx] Thiamine (B-1) [Vitamin B-1] 100 mg PO DAILY tablet 05/08/18 [Rx] Allergies/Adverse Reactions: 3 Allergy/AdvReac Type Severity Reaction Status Date / Time No Known Allergies Allergy Verified 05/03/18 16:01 Date of admission: 05/03/18 14:47 Primary care physician: Kelly Rojas Consults: 05/03/18 15:43 Consult to Nephrology [CONS] Routine Consulting Provider: [facility]/CLINTON/JAYDA/KATLYN Reason for Consult: severe hyponatremia Call Completed: No 05/03/18 16:19 Consult to Orthopedic Surgery [CONS] Routine Consulting Provider: [facility] Reason for Consult: left hip fracture Call Completed: Yes 05/06/18 10:41 Consult to Nurse Navigator [CONS] Routine Comment: ortho navigator Consult to Occupational Therapy [CONS] Routine Comment: Evaluate, develop and implement POC Reason for Consult: total hip replacement Does patient have active BEDREST order?: No Is patient medically & hemodynamically stable?: Yes Consult to Physical Therapy [CONS] Routine Comment: Evaluate, develop and implement POC Reason for Consult: total hip replacement Does patient have active BEDREST order?: No Is patient medically & hemodynamically stable?: Yes Consult to Electrical Electronics Engineers [CONS] Routine Reason for SW Consult: post op joint replacement RT Post Op Consult [CONS] Routine Discharging clinician: Haleigh Manzo - Constitutional Vitals: Temp Pulse Resp BP Pulse Ox 98.0 F 116 18 145/81 93 05/08/18 11:34 05/08/18 11:34 05/08/18 11:34 05/08/18 11:34 05/08/18 11:34 General appearance: Present: cachectic Exam: General: awake, alert, appears stated age Cardiovascular:regular rate and rhythm, normal S1 & S2, no rubs, murmurs or gallops. DP/PT pulses 2+, no lower extremity edema Lungs:Normal breath sounds, no wheezes, or crackles. Normal respiratory effort on room air Extremities: rom left ankle/toes intact and painless, dressing left hip clean, dry intact Neurological: AAOx3, sensation to light touch intact and equal in bl le, CN grossly intact Skin:Normal color, no rash, no pallor; mild eccymosis area of left hip incision , no hematoma is appreciated on inspection or palpation - Patient Status Disposition: Home, Self-Care Condition: Good Overall status at discharge: patient is progressing back to baseline - Discharge Instructions Follow Up With: Kendell Eli MD [Partnered Physician] - Kelly Rojas MD [Primary Care Provider] - Additional Instructions: Follow up with Donna [facility] Specialist - VTE Documentation of Mechanical Device: Intermittent pneumatic compression device
--- NOTE | 2018-05-08 16:19 | Event Note ---
Date of Encounter: 05/08/18 Time of Encounter: 12:20 PCR - POD#2 s/p - Left Total Hip Replacment robotic-assisted 05/06/18 Patient seen at bedside, without complaints. A&O x 3 Afebrile, vital signs stable at time of visit. Dressings have small amount drainage visible to middle, appears old. no calf tenderness to palpation. Labs reviewed. H/H - 10.7/32.0 - receiving 2 units RBC yesterday Pain control: adequate Participating in PT. PT did recommend ECF placement however patient is refusing and wants to go home. All questions and concerns addressed. Educated on use of incentive spirometer. Encouraged ambulation and proper hydration. Patient educated on post-operative restrictions and post-operative care. Assessment and plan: Continue with postoperative care Discharge plan: today with home therapy
== END 2018-05-08 15:50 | disposition home or self-care (01) | DRG 301 ==
LOC: SUATTDRO 14:47 → 2NNU 14:47 → 3NENU 05-04 12:32
PROVIDERS: ADMIT Student in an Organized Health Care Education/Training Program; ATTEND Internal Medicine

== ENCOUNTER 2018-05-22 17:51 | Inpatient (IN) ==
[2018-05-22] MEDS ORDERED: *HR* HYDROmorphone (PF) 1 MG/ML SYRINGE IVP ONE (17:59)
[2018-05-22] MEDS ORDERED: Ondansetron 4 MG/2 ML VIAL IVP ONE (18:04)
[2018-05-22] MEDS ORDERED: *HR* Propofol 500 MG/50 ML BOTTLE IVP ONE (18:07)
--- NOTE | 2018-05-22 18:16 | Emergency Department Note ---
Disposition Clinical Impression: Hip dislocation, left Qualifiers: Encounter type: initial encounter Qualified Code(s): S73.005A - Unspecified dislocation of left hip, initial encounter Disposition: Still a Patient General Adult HPI - General Chief complaint: ED Extremity Injury, Lower Stated complaint: HIP PAIN Time Seen by Provider: 05/22/18 17:58 Source: patient, EMS Limitations: no limitations - History of Present Illness HPI Narrative: Attestation note I examined this patient and my medical decision-making was reviewed with the Resident Physician/SPA EXPERIENCE COORDINATOR/PA. I agree with the documented findings, disposition and treatment plan as described except to the extent set forth below Patient seen with emergency medicine resident Wendy Uriarte, please see copy of his note for details of this patient encounter Briefly: 57-year-old female status post total hip replacement surgery by Dr. Kendell Eli at [facility] last month. Patient bent over to adjust her sock and felt her hip pop out. She was taken by EMS to [place] emergency department. They provided a milligram of Dilaudid and recommended transfer to [facility] for procedural sedation and if unsuccessful, consult orthopedics. We have paged the orthopedist educational paraprofessional Dr. Whitmore. We plan on doing procedural sedation with propofol and using the captain working close reduction technique for hip relocation. Informed consent was obtained. Patient's questions were answered. Patient is being prepped for procedural sedation. We will consult orthopedics at this time. Providing 30 minutes critical care service for this patient. Pain Scale: 10 - Related Data Home Medications Medication Instructions Recorded Confirmed Alendronate Sodium [Fosamax] 70 mg PO TH 05/03/18 05/22/18 Calcium Carbonate/Vitamin D3 1 tab PO TID 05/03/18 05/22/18 [Oyster Shell Calcium-Vit D Tab] Previous Rx's Medication Instructions Recorded Aspirin Enteric Coated [Aspirin EC] 162 mg PO BID 10 Days #20 tablet. 05/08/18 Calcium Carbonate [Tums] 500 mg PO TID tab.chew 05/08/18 Cyanocobalamin (B-12) [Vitamin B12] 1,000 mcg PO DAILY 30 Days #30 05/08/18 tablet Docusate [Colace] 100 mg PO BID 7 Days #14 capsule 05/08/18 Ferrous Sulfate 325 mg PO BIDWM 14 Days #28 tablet 05/08/18 Folic Acid 1 mg PO DAILY tablet 05/08/18 Multivit/Ca/Min/Fe/FA [Thera M 1 tab PO DAILY tablet 05/08/18 Plus] OxyCODONE/APAP 5/325 [Percocet 1 each PO Q6HR PRN 5 Days #20 05/08/18 5/325 MG] tablet Sodium Chloride [Sodium Chloride 1 gm PO BID 14 Days #28 tablet 05/08/18 Tab] Thiamine (B-1) [Vitamin B-1] 100 mg PO DAILY tablet 05/08/18 Allergies Allergy/AdvReac Type Severity Reaction Status Date / Time No Known Allergies Allergy Verified 05/03/18 16:01 Past Medical History - Past Medical History Medical history: Reports: COPD, hyperlipidemia, hypertension, other Surgical history: Reports: Psychiatric history: Reports: no psych history NEWS VIDEO EDITOR history: Reports: no NEWS VIDEO EDITOR history - Social History Smoking Status: Current every day smoker Smokeless Tobacco Status: No Alcohol use: Reports: heavy Drug use: Reports: none Physical Exam - General Limitations: no limitations General appearance: alert Course Vital Signs Temperature 98.6 F 05/22/18 17:58 Pulse Rate 122 05/22/18 17:58 Respiratory Rate 18 05/22/18 17:58 Blood Pressure 132/74 05/22/18 17:58 O2 Sat by Pulse Oximetry 95 05/22/18 17:58 Temperature 98.6 F 05/22/18 17:58 Pulse Rate 122 05/22/18 17:58 Respiratory Rate 18 05/22/18 17:58 Blood Pressure 132/74 05/22/18 17:58 O2 Sat by Pulse Oximetry 95 05/22/18 17:58 Oxygen Delivery Oxygen Delivery Room Air
--- NOTE | 2018-05-22 18:22 | Emergency Department Note ---
Disposition Clinical Impression: Hip dislocation, left Qualifiers: Encounter type: initial encounter Qualified Code(s): S73.005A - Unspecified dislocation of left hip, initial encounter Disposition: Admitted As Inpatient Condition: Good Forms: ED Satisfaction Letter Time of Disposition: 20:00 General Adult HPI - General Stated complaint: HIP PAIN Time Seen by Provider: 05/22/18 17:58 Source: patient, EMS Limitations: no limitations Nursing Notes Reviewed: Yes Vital Signs Reviewed: Yes - History of Present Illness HPI Narrative: He will patient is 1 week out status post total hip replacement of the left hip. Is was done by Dr. Eli. She was bending over today to put on her socks. She felt it pop. She is been in pain ever since. [facility] was performed and found to have a superiorly dislocated left hip. She was then transferred here for procedural sedation and reduction of the center. She has no other complaints at this time. Was given Dilaudid at the out side hospital but is still in a significant amount of pain. Pain Scale: 10 - Related Data Home Medications Medication Instructions Recorded Confirmed Alendronate Sodium [Fosamax] 70 mg PO TH 05/03/18 05/22/18 Calcium Carbonate/Vitamin D3 1 tab PO TID 05/03/18 05/22/18 [Oyster Shell Calcium-Vit D Tab] Previous Rx's Medication Instructions Recorded Aspirin Enteric Coated [Aspirin EC] 162 mg PO BID 10 Days #20 tablet. 05/08/18 Calcium Carbonate [Tums] 500 mg PO TID tab.chew 05/08/18 Cyanocobalamin (B-12) [Vitamin B12] 1,000 mcg PO DAILY 30 Days #30 05/08/18 tablet Docusate [Colace] 100 mg PO BID 7 Days #14 capsule 05/08/18 Ferrous Sulfate 325 mg PO BIDWM 14 Days #28 tablet 05/08/18 Folic Acid 1 mg PO DAILY tablet 05/08/18 Multivit/Ca/Min/Fe/FA [Thera M 1 tab PO DAILY tablet 05/08/18 Plus] OxyCODONE/APAP 5/325 [Percocet 1 each PO Q6HR PRN 5 Days #20 05/08/18 5/325 MG] tablet Sodium Chloride [Sodium Chloride 1 gm PO BID 14 Days #28 tablet 05/08/18 Tab] Thiamine (B-1) [Vitamin B-1] 100 mg PO DAILY tablet 05/08/18 Allergies Allergy/AdvReac Type Severity Reaction Status Date / Time No Known Allergies Allergy Verified 05/03/18 16:01 All systems ED: reviewed and negative except as stated. Review of Systems: As Per HPI Constitutional: Denies: fever Cardiovascular: Denies: chest pain, syncope Respiratory: Denies: cough, dyspnea Gastrointestinal: Reports: other (States the last time she was around 9:30 to 10 :30 this morning). Denies: abdominal pain Genitourinary: Denies: urgency, dysuria, frequency, hematuria Musculoskeletal: Reports: other (Left hip pain). Denies: back pain Past Medical History - Past Medical History Attestation: Yes The following information was validated with the patient. Source: patient Medical history: Reports: COPD, hyperlipidemia, hypertension, other Surgical history: Reports: Psychiatric history: Reports: no psych history ACCOUNTING ADMINISTRATIVE ASSISTANT history: Reports: no ACCOUNTING ADMINISTRATIVE ASSISTANT history - Social History Smoking Status: Current every day smoker Smokeless Tobacco Status: No Alcohol use: Reports: heavy Drug use: Reports: none Physical Exam - General Limitations: no limitations General appearance: alert, in no apparent distress - Head Head exam: atraumatic, normocephalic, normal inspection - Eye Eye exam: Present: normal appearance, PERRL, EOMI - ENT ENT exam: normal exam, normal oropharynx, mucous membranes moist - Neck Neck exam: Present: normal inspection, full ROM, trachea midline - Chest Chest inspection: Present: normal inspection, symmetric chest wall rise. Absent : tenderness - Respiratory Respiratory exam: Present: wheezes (Scant throughout). Absent: respiratory distress, accessory muscle use - Cardiovascular Cardiovascular exam: Present: regular rate, normal rhythm, normal heart sounds - Abdominal Exam Abdominal exam: Present: soft, Non-Tender. Absent: tenderness, distention, guarding, rebound, rigidity, Bradshaw's sign, Rovsing's sign, tenderness at McBurney's Point - Expanded Upper Extremity Exam Shoulder exam: Present: normal inspection, full ROM Arm exam: Present: normal inspection, full ROM Elbow exam: Present: normal inspection, full ROM Forearm/Wrist exam: Present: normal inspection, full ROM Hand exam: Present: normal inspection, full ROM Vascular exam: Normal: capillary refill, radial pulse - Expanded Lower Extremity Exam Hip/Pelvis exam: Present: other (Pain and dislocation to left hip area. Well- appearing well-healing scar to the left hip.) Upper leg exam: Present: normal inspection, full ROM Knee exam: Present: normal inspection, full ROM Lower leg exam: Present: normal inspection, full ROM Ankle exam: Present: normal inspection, full ROM Foot/toe exam: Present: normal inspection, full ROM Neurovascular/Tendon exam: Present: other (Strong pedal pulses bilaterally.). Absent: pulse deficit, motor deficit, sensory deficit, tendon deficit - Neurological Exam Neurological exam: Present: alert, oriented X3 - Psychiatric Psychiatric exam: Present: normal affect, normal mood - Skin Skin exam: Present: warm, dry, intact, normal color. Absent: rash, cyanosis, diaphoresis Course Course Narrative: We will attempt to sedate the patient and reduce the patient's hip. Patient is agreeable with this. - Reevaluation(s) Reevaluation #1: Procedural sedation and hip relocation was attempted. Patient was adequately sedated tolerated well however to attempts at reducing her hip the hip did go back and socket which was felt however upon treating her leg it spontaneously dislocated. Discussed this with Dr. Eli. He is requesting that we met the patient to the hospitalist. Time: 19:52 - Consultations Consultation #1: I spoke with Dr Hurley. He advised that he would be available if we needed assistance however he is requesting we speak to Dr. Pierson that she has gone recently to the surgery. I feel this is reasonable. is reasonable. Time: 18:19 Consultation #2: Dr Eli was contacted. he is agreeable with the plan to sedate the Pt and attempt a reduction. He advises a knee immobilizer and abduction pillow for home use. Time: 18:22 Consultation #3: Dr Dsouza accepted Pt in stable condition Time: 20:01 Vital Signs Temperature 98.6 F 05/22/18 17:58 Pulse Rate 122 05/22/18 17:58 Respiratory Rate 18 05/22/18 17:58 Blood Pressure 132/74 05/22/18 17:58 O2 Sat by Pulse Oximetry 95 05/22/18 17:58 Temperature 98.6 F 05/22/18 17:58 Pulse Rate 93 05/22/18 19:39 Respiratory Rate 14 05/22/18 19:39 Blood Pressure 112/65 05/22/18 19:39 O2 Sat by Pulse Oximetry 98 05/22/18 19:33 Oxygen Delivery Oxygen Delivery [] Nasal Cannula Oxygen Delivery [] Nasal Cannula Oxygen Delivery [] Nasal Cannula Oxygen Delivery Room Air Procedures - Orthopedic Joint Reduction Joint #1 Consent Obtained: written consent Time Out Performed: No Side: left Joint Reduction Location: hip ASA Classification: CLASS II-Mild systemic disease Analgesia: procedural sedation Shoulder Technique Used (if applicable): traction/counter-traction Technique used: traction/counter-traction Post-reduction neuro exam: intact, no change Post-reduction vascular: intact, no change Post Reduction X-Ray Obtained: Yes Post Reduction X-Ray Results: not reduced Splint Applied: No Patient Tolerated Procedure: well Additional Comments: Hip reduced twice. Spontaneously dislocated - Procedural Sedation Indication: fracture/dislocation reduction Dietary Status: NPO 6 hours prior to procedure If known; time of last PO intake: 10:30 H&P (including ROS) documented in medical record: Yes Previous reaction to sedatives/anesthetics: No Dentition: No loose teeth or bridges Airway Assessment: Patient can open mouth completely, TMJ function normal Possible difficult airway: No ASA Classification: CLASS II-Mild systemic disease Plan of Care: Pt appropriate candidate for procedure/moderate/conscious sedation , Risks/benefits of procedure/sedation discussed w/ patient/family Preparation: monitor technician applied, pulse oximeter, capnometry used, supplemental O2 applied, suction/airway equipment at bedside, IV secured IV Propofol Dose (mgs): 60 Patient Tolerated Procedure: well Complications: Respiratory Depression-Repositioning Required Interventions: oxygen applied, airway repositioned Medical Decision Making - Medical Records Medical records reviewed: Yes I reviewed the patient's medical records. - Radiology Data Radiology results reviewed: Yes I reviewed the patient's radiology results.
[2018-05-22 20:30] LABS: Basophils # 0.1 K/mcL (0.0-0.2); Basophils % 0.6 %; Eosinophils # 0.1 K/mcL (0.0-0.6); Eosinophils % 1.1 %; Hematocrit 32.9 % (35.3-44.9); Hemoglobin 10.9 g/dL (11.5-15.4); Immature Granulocytes % 0.2 % (0-4); Lymphocytes # 1.2 K/mcL (0.6-4.6); Lymphocytes % 14.4 %; Mean Corpuscular HGB Conc 33.1 g/dL (31.6-35.5); Mean Corpuscular Hemoglobin 30.6 pg (28.0-33.3); Mean Corpuscular Volume 92.4 fL (83.0-100.0); Mean Platelet Volume 9.3 fL (9.4-12.4); Monocytes # 0.7 K/mcL (0.0-1.3); Monocytes % 8.8 %; Neutrophils # 6.1 K/mcL (1.6-8.9); Platelet Count 272 K/mcL (140-400); Red Blood Count 3.56 M/mcL (3.82-4.97); Red Cell Distribution Width 17.4 % (11.5-14.5); Segmented Neutrophils % 74.9 %
[2018-05-22 20:35] LABS: INR 1.1; Prothrombin Time 12.3 Seconds (9.4-12.1)
[2018-05-22 20:51] LABS: BUN/Creatinine Ratio 11 (6-26); Blood Urea Nitrogen 3 mg/dL (6-20); Calcium 8.4 mg/dL (8.6-10.3); Carbon Dioxide 22 mEq/L (23-29); Chloride 94 mEq/L (98-107); Glucose 81 mg/dL (70-105); Osmolality,Calculated 250 (280-300); Potassium 3.5 mEq/L (3.5-5.1); Sodium 122 mEq/L (136-145); eGFR For Non-African Americans > 60 (> 60)
[2018-05-22] MEDS ORDERED: OXYCODONE Oral CONC 10 MG/0.5 ML ORAL.SYG SL PRN (23:08)
[2018-05-22] MEDS ORDERED: Naloxone 0.4 MG/ML INJ IVP PRN (23:08)
[2018-05-22] MEDS ORDERED: Ondansetron 4 MG/2 ML VIAL IVP PRN (23:08)
[2018-05-22] MEDS ORDERED: *HR* LORazepam 2 MG/ML VIAL IVP PRN ×3 (23:31)
[2018-05-23 00:25] LABS: BUN/Creatinine Ratio 10 (6-26); Blood Urea Nitrogen 3 mg/dL (6-20); Calcium 8.6 mg/dL (8.6-10.3); Carbon Dioxide 24 mEq/L (23-29); Chloride 99 mEq/L (98-107); Glucose 125 mg/dL (70-105); Osmolality,Calculated 258 (280-300); Potassium 3.2 mEq/L (3.5-5.1); Sodium 125 mEq/L (136-145); eGFR For Non-African Americans > 60 (> 60)
[2018-05-23 03:57] LABS: Hematocrit 33.1 % (35.3-44.9); Hemoglobin 11.2 g/dL (11.5-15.4); Mean Corpuscular HGB Conc 33.8 g/dL (31.6-35.5); Mean Corpuscular Hemoglobin 30.3 pg (28.0-33.3); Mean Corpuscular Volume 89.5 fL (83.0-100.0); Mean Platelet Volume 8.7 fL (9.4-12.4); Platelet Count 297 K/mcL (140-400); Red Cell Distribution Width 17.2 % (11.5-14.5)
[2018-05-23 04:17] LABS: BUN/Creatinine Ratio 17 (6-26); Blood Urea Nitrogen 4 mg/dL (6-20); Calcium 8.7 mg/dL (8.6-10.3); Carbon Dioxide 23 mEq/L (23-29); Chloride 99 mEq/L (98-107); Glucose 95 mg/dL (70-105); Osmolality,Calculated 255 (280-300); Potassium 3.5 mEq/L (3.5-5.1); Sodium 124 mEq/L (136-145); eGFR For Non-African Americans > 60 (> 60)
[2018-05-23] MEDS: OXYCODONE Oral CONC 10 MG/0.5 ML ORAL.SYG SL PRN ×4 (04:33→21:36)
--- NOTE | 2018-05-23 07:00 | Internal Med History&Physical ---
Date of Encounter: 05/22/18 Time of Encounter: 22:10 Internal Medicine - H&P: HPI Chief complaint: Left hip dislocation Admitted From: Emergency Dept Plans for Post Hospital Care: Home History of present illness: Ms. Rao is a 57 year old female Patient presented after bending over to put on her socks, and hearing a pop in her left hip. She had immediate pain and came to the ER to be evaluated. She is 1 week postop left hip repair by Dr. Eli. In the ER hip x-ray showed a left superior dislocation with increased separation from prior study (This image was done post reduction). ER was unable to successfully reduce the hip. Dr. Eli was then notified, and requested the patient be admitted for further management. Upon my assessment patient states that she was doing fine with regards to the pain until she was transferred to her new bed on the medical floor. After some adjustments she was finally able to get some relief. Lab work from the ER revealed a sodium level of 122, which she has dealt with in the past. She has a long history of alcoholism, and recently drank 3 beers in the afternoon prior to her presentation to the ER. She says that she has to drink every day to avoid getting the shakes. She denies nausea, vomiting, diarrhea, constipation, chest and abdominal pain. Her hip pain is focused directly over her left hip, and is very tender to palpation. Past Med Surg Social Fam HX - Past Medical History Medical history: COPD, hyperlipidemia, hypertension, other Additional medical history: anemia Psychiatric history: no psych history - Past Surgical History Surgical History: Additional surgical history: previous hip surgery (left) 05/02/2018, right hip surgery 2017, previous back surgery - Social History Smoking Status: Current every day smoker Packs per day: 1.5 Smokeless Tobacco Status: No Alcohol use: heavy Drug use: none - Family History Mother History Unknown: Yes Living Status: Internal Medicine - H&P: Meds Calcium Carbonate/Vitamin D3 [Oyster Shell Calcium-Vit D Tab] 1 tab PO TID 05/03 [History] Aspirin Enteric Coated [Aspirin EC] 162 mg PO BID 10 Days #20 tablet. [Rx] Cyanocobalamin (B-12) [Vitamin B12] 1,000 mcg PO DAILY 30 Days #30 tablet [Rx] Docusate [Colace] 100 mg PO BID 7 Days #14 capsule 05/08/18 [Rx] Folic Acid 1 mg PO DAILY tablet 05/08/18 [Rx] Multivit/Ca/Min/Fe/FA [Thera M Plus] 1 tab PO DAILY tablet 05/08/18 [Rx] OxyCODONE/APAP 5/325 [Percocet 5/325 MG] 1 each PO Q6HR PRN 5 Days #20 tablet [Rx] Sodium Chloride [Sodium Chloride Tab] 1 gm PO BID 14 Days #28 tablet 05/08/18 [ Rx] Thiamine (B-1) [Vitamin B-1] 100 mg PO DAILY tablet 05/08/18 [Rx] 3 Allergy/AdvReac Type Severity Reaction Status Date / Time No Known Allergies Allergy Verified 05/03/18 16:01 All Systems PM: A 10-system review of systems was performed and is negative for pertinent findings except as documented above in the HPI. - Constitutional Vitals: Temp Pulse Resp BP Pulse Ox 98.1 F 82 16 126/64 92 05/23/18 05:07 05/23/18 05:07 05/23/18 05:07 05/23/18 05:07 05/23/18 05:07 General appearance: Present: cooperative, mild distress, A&O X 3, answers questions appropriately Exam: As above - Head Head exam: Present: normal inspection - Eye Eye exam: Present: normal appearance - Respiratory Respiratory exam: Present: CTAB. Absent: chest wall tenderness, decreased breath sounds, rales, respiratory distress, wheezes - Cardiovascular Cardiovascular exam: Present: RRR. Absent: diastolic murmur, systolic murmur - GI/Abdominal GI/Abdominal exam: Present: normal bowel sounds, soft. Absent: tenderness - Extremities Exam Extremities exam: Present: tenderness, warm, radial pulses palpable and symmetrical. Absent: calf tenderness, pedal edema Additional comments: Tenderness over the left hip with palpation. Difficulty to maneuver without increased pain. - Neurological Exam Neurological exam: Present: no focal deficits, strengths equal and symetr throughout. Absent: motor sensory deficit, facial droop, speech deficit - Skin Skin exam: Present: dry, normal color, warm Internal Med - H&P Results - Labs CBC & Chem 7: 05/23/18 03:46 05/23/18 03:46 Labs: Short CBC 05/23/18 Range/Units 03:46 WBC 5.3 (4.3-11.1) K/mcL Hgb 11.2 L (11.5-15.4) g/dL Hct 33.1 L (35.3-44.9) % Plt Count 297 (140-400) K/mcL BMP 05/22/18 05/23/18 23:54 03:46 Sodium 125 L 124 L Potassium 3.2 L 3.5 Chloride 99 99 Carbon Dioxide 24 23 BUN 3 L 4 L Creatinine 0.29 L 0.24 L Glucose 125 H 95 Calcium 8.6 8.7 - Assessment and plan (1) Dislocation of left hip Current Visit: Yes Status: Acute Assessment and plan: As evidenced by hip x-ray. Dr. Eli of orthopedic surgery called from ER. Follow up Ortho recommendations. Pain control as needed. AM labs EKG in AM NPO after midnight Qualifiers: Encounter type: initial encounter Qualified Code(s): S73.005A - Unspecified dislocation of left hip, initial encounter (2) Left hip pain Current Visit: Yes Status: Acute Assessment and plan: Secondary to hip dislocation (3) Alcohol abuse Current Visit: Yes Status: Acute Assessment and plan: CIWA protocol. Monitor for Withdrawal. Banana bag, multivitamins. (4) Hyponatremia Current Visit: No Status: Acute Assessment and plan: History of hyponatremia, on sodium tablets at home. Sodium level 122 in the ER. Had similar presentation at last admission when she presented for left hip fracture originally, but level was 112. She was started on IV fluids, and corrected too fast. Will try fluid restriction and monitor. If not improving slow IV fluids and careful monitoring. Continue salt tabs at discharge. Monitor BMP Q4H. (5) DVT prophylaxis Current Visit: No Status: Acute Assessment and plan: SCDs - Time Spent With Patient Total time spent is greater than 50% in coordination of care (as documented) at patient's floor/unit and/or counseling patient: Greater than 35 minutes
--- NOTE | 2018-05-23 08:31 | Internal Med Progress Note ---
Hospitalist Progress Note - Encounter Date of Encounter: 05/23/18 Time of Encounter: 09:20 - Subjective Interval History: awake, at bedside. continued hip pain, no n/v, cp, sob, palpitations. - Exam Vitals: Temp Pulse Resp BP Pulse Ox 98.9 F 94 16 115/65 94 05/23/18 07:13 05/23/18 07:13 05/23/18 07:13 05/23/18 07:13 05/23/18 07:13 Exam: General: awake, alert, appears stated age Cardiovascular:regular rate and rhythm, normal S1 & S2, murmurs no lower extremity edema, dp/pt pulses intact and equal Lungs:Normal breath sounds, no wheezes, or crackles. Normal respiratory effort on ra Abdomen:Soft, non-tender, non-distended, + bowel sounds MSK: left leg shortening and hip rotation present Neurological: AAOx3, CN grossly intact, sensation to lt touch intact and equal bl le Skin: no hip ecchymosis, bl shins with red dry flaking skin, no bleeding, no discharge, + xeroderma - Assessment and Plan (1) Dislocation of left hip Current Visit: Yes Status: Acute Assessment and Plan: 2/2 to pt bending to put socks on 1 week postop left hip repair by Dr. Eli As evidenced by hip x-ray. Dr. Eli following Follow up Ortho recommendations. Pain control as needed. NPO after midnight (2) Hyponatremia Current Visit: No Status: Chronic Assessment and Plan: History of hyponatremia, on sodium tablets at home. No congitive deficits Follows with nephro outpt Sodium level 124- Had similar presentation at last admission when she presented for left hip fracture originally, but level was 112. She was started on IV fluids, and corrected too fast. Nephro followed and increased sodium tabs -fluid restriction and monitor.Cont home sodium tabs -If not improving slow IV fluids and careful monitoring and would consider nephro consult -Monitor BMP Q4H. (3) Alcohol abuse Current Visit: Yes Status: Acute Assessment and Plan: CIWA protocol. Monitor for Withdrawal. Banana bag, multivitamins. DVT Prophylaxis: scs - Time Spent with Patient Total time spent is greater than 50% in coordination of care (as documented) at patient's floor/unit and/or counseling patient: 25 - 35 minutes Plan of Care Discussed with: patient Internal Medicine: Result - Labs CBC & Chem 7: 05/23/18 03:46 05/23/18 12:00 Labs: Short CBC 05/23/18 Range/Units 03:46 WBC 5.3 (4.3-11.1) K/mcL Hgb 11.2 L (11.5-15.4) g/dL Hct 33.1 L (35.3-44.9) % Plt Count 297 (140-400) K/mcL BMP 05/22/18 05/23/18 23:54 03:46 Sodium 125 L 124 L Potassium 3.2 L 3.5 Chloride 99 99 Carbon Dioxide 24 23 BUN 3 L 4 L Creatinine 0.29 L 0.24 L Glucose 125 H 95 Calcium 8.6 8.7 - ABG Interpretation ABG results: PT/INR, D-dimer PT 12.3 Seconds (9.4-12.1) H 05/22/18 20:17 Consult Discharge Plan - Plan Referrals: Kelly Rojas MD [Primary Care Provider] - (1) Dislocation of left hip Qualifiers: Encounter type: initial encounter Qualified Code(s): S73.005A - Unspecified dislocation of left hip, initial encounter
[2018-05-23 08:59] LABS: BUN/Creatinine Ratio 14 (6-26); Blood Urea Nitrogen 4 mg/dL (6-20); Calcium 8.7 mg/dL (8.6-10.3); Carbon Dioxide 24 mEq/L (23-29); Chloride 99 mEq/L (98-107); Glucose 81 mg/dL (70-105); Osmolality,Calculated 262 (280-300); Potassium 3.7 mEq/L (3.5-5.1); Sodium 128 mEq/L (136-145); eGFR For Non-African Americans > 60 (> 60)
[2018-05-23 12:35] LABS: BUN/Creatinine Ratio 13 (6-26); Blood Urea Nitrogen 4 mg/dL (6-20); Calcium 8.9 mg/dL (8.6-10.3); Carbon Dioxide 23 mEq/L (23-29); Chloride 98 mEq/L (98-107); Glucose 89 mg/dL (70-105); Osmolality,Calculated 262 (280-300); Potassium 3.6 mEq/L (3.5-5.1); Sodium 128 mEq/L (136-145); eGFR For Non-African Americans > 60 (> 60)
--- NOTE | 2018-05-23 16:09 | Orthopedic Consult Note ---
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 Eli implants and revision of the implants on Friday. DVT prophylaxis Pressure ulcer precautions NPO after midnight on Friday night Qualifiers: Encounter type: initial encounter Qualified Code(s): T84.028A - Dislocation of other internal joint prosthesis, initial encounter; Z96.649 - Presence of unspecified artificial hip joint History of Present Illness Chief complaint: Left total hip dislocation HPI: Ms. Rao is a 57 year old female who is postoperative week #2 status post a left total hip arthroplasty for a displaced proximal femoral neck fracture. The patient bent over a a trampoline socks when she felt a pop and left hip with severe pain and unable to ambulate. Patient was brought to emergency room where x-rays revealed a dislocated total hip arthroplasty on the left side. The right hip arthroplasty stable. The ER attempted to relocate the hip but was unsuccessful. The patient was admitted last night adduct, and requests for a possible revision of the implants. Patient is comfortable at rest but reports pain with any motion. Past Med Surg Social Fam HX - Past Medical History Medical history: COPD, hyperlipidemia, hypertension, other Additional medical history: anemia Psychiatric history: no psych history - Past Surgical History Surgical History: Additional surgical history: previous hip surgery (left) 05/02/2018, right hip surgery 2017, previous back surgery - Social History Smoking Status: Current every day smoker Packs per day: 1.5 Smokeless Tobacco Status: No Alcohol use: heavy Drug use: none - Family History Mother History Unknown: Yes Living Status: Medications and Allergies Calcium Carbonate/Vitamin D3 [Oyster Shell Calcium-Vit D Tab] 1 tab PO TID 05/03 [History] Aspirin Enteric Coated [Aspirin EC] 162 mg PO BID 10 Days #20 tablet. [Rx] Cyanocobalamin (B-12) [Vitamin B12] 1,000 mcg PO DAILY 30 Days #30 tablet [Rx] Docusate [Colace] 100 mg PO BID 7 Days #14 capsule 05/08/18 [Rx] Folic Acid 1 mg PO DAILY tablet 05/08/18 [Rx] Sodium Chloride [Sodium Chloride Tab] 1 gm PO BID 14 Days #28 tablet 05/08/18 [ Rx] Thiamine (B-1) [Vitamin B-1] 100 mg PO DAILY tablet 05/08/18 [Rx] OxyCODONE Immed Rel [Roxicodone 5 MG] 5 mg PO Q6HR PRN 05/23/18 [History] 3 Allergy/AdvReac Type Severity Reaction Status Date / Time No Known Allergies Allergy Verified 05/03/18 16:01 All Systems Reviewed: The remainder of the systems were reviewed and are negative Physical Exam - Constitutional Vitals: Temp Pulse Resp BP Pulse Ox 98.6 F 80 16 121/71 93 05/23/18 15:22 05/23/18 15:22 05/23/18 15:22 05/23/18 15:22 05/23/18 15:22 General appearance IM: A&O X 3, pleasant, thin, answers questions appropriately Exam: Patient presents in the hospital bed on the floor. Left hip postoperative surgical dressings are still in place. The left lower extremity slightly shortened and internally rotated. She is able to dorsiflex and plantarflex the foot and toes. Dorsalis pedis pulses 2+. Sensation grossly intact in dorsal and plantar aspect of foot Results - Labs Result Diagrams: 05/23/18 03:46 05/23/18 12:00 Labs: Abnormal lab results RBC 3.70 M/mcL (3.82-4.97) L 05/23/18 03:46 Hgb 11.2 g/dL (11.5-15.4) L 05/23/18 03:46 Hct 33.1 % (35.3-44.9) L 05/23/18 03:46 RDW 17.2 % (11.5-14.5) H 05/23/18 03:46 MPV 8.7 fL (9.4-12.4) L 05/23/18 03:46 PT 12.3 Seconds (9.4-12.1) H 05/22/18 20:17 Sodium 128 mEq/L (136-145) L 05/23/18 12:00 BUN 4 mg/dL (6-20) L 05/23/18 12:00 Creatinine 0.30 mg/dL (0.60-1.20) L 05/23/18 12:00 Calculated Osmolality 262 (280-300) L 05/23/18 12:00 H & H 05/23/18 Range/Units 03:46 Hgb 11.2 L (11.5-15.4) g/dL Hct 33.1 L (35.3-44.9) % All other labs normal. - Diagnostic results Hip AP/Lateral x-ray: image reviewed (Dislocated left total hip arthroplasty) Consult Discharge Plan - Plan Referrals: Kelly Rojas MD [Primary Care Provider] -
[2018-05-23] MEDS: Thiamine (B-1) 100 MG, Folic Acid 1 MG, MVI, adult with vitamin K 10 ML in 0.9 % Sodi... IVPB SCH (16:17)
[2018-05-23 16:18] LABS: BUN/Creatinine Ratio 16 (6-26); Blood Urea Nitrogen 5 mg/dL (6-20); Calcium 8.7 mg/dL (8.6-10.3); Carbon Dioxide 24 mEq/L (23-29); Chloride 96 mEq/L (98-107); Glucose 87 mg/dL (70-105); Osmolality,Calculated 255 (280-300); Potassium 3.8 mEq/L (3.5-5.1); Sodium 124 mEq/L (136-145); eGFR For Non-African Americans > 60 (> 60)
[2018-05-23 20:33] LABS: BUN/Creatinine Ratio 15 (6-26); Blood Urea Nitrogen 5 mg/dL (6-20); Calcium 8.5 mg/dL (8.6-10.3); Carbon Dioxide 24 mEq/L (23-29); Chloride 98 mEq/L (98-107); Glucose 104 mg/dL (70-105); Osmolality,Calculated 260 (280-300); Potassium 3.4 mEq/L (3.5-5.1); Sodium 126 mEq/L (136-145); eGFR For Non-African Americans > 60 (> 60)
[2018-05-24] MEDS: OXYCODONE Oral CONC 10 MG/0.5 ML ORAL.SYG SL PRN ×4 (02:11→20:54)
--- NOTE | 2018-05-24 08:42 | Internal Med Progress Note ---
Hospitalist Progress Note - Encounter Date of Encounter: 05/24/18 Time of Encounter: 10:20 - Subjective Interval History: awake, pain more tolerable today when lying still. no confusion or fatigue. denies cp, palpitations, sob. aware of plan for OR in am and optimizing electrolytes today. - Exam Vitals: Temp Pulse Resp BP Pulse Ox 98.1 F 119 18 119/74 93 05/24/18 08:00 05/24/18 08:00 05/24/18 08:00 05/24/18 08:00 05/24/18 08:25 Exam: General: awake, alert, appears stated age Cardiovascular:regular rate and rhythm, normal S1 & S2, murmurs no lower extremity edema, dp/pt pulses intact and equal Lungs:Normal breath sounds, no wheezes, or crackles. Normal respiratory effort on ra Abdomen:Soft, non-tender, non-distended, + bowel sounds MSK: left leg shortening and ext hip rotation Neurological: AAOx3, CN grossly intact, sensation to lt touch intact and equal bl le - Assessment and Plan (1) Dislocation of left hip Current Visit: Yes Status: Acute Assessment and Plan: 2/2 to pt bending to put socks on 1 week postop left hip repair by Dr. Eli As evidenced by hip x-ray. Dr. Eli following Pain control as needed. NPO after midnight friday morning OR 05/25 for implant revision -post op care as per ortho -pt/ot/sw (2) Hyponatremia Current Visit: No Status: Chronic Assessment and Plan: History of hyponatremia, on sodium tablets at home. No congitive deficits Follows with nephro outpt Sodium level 124- Had similar presentation at last admission when she presented for left hip fracture originally, but level was 112. She was started on IV fluids, and corrected too fast. Nephro followed and increased sodium tabs Na has been stable and near her prior levels last discharge 125-126 -fluid restriction and monitoring, Cont home sodium tabs -will need IV mag today and will recive 100 ml ns with that--will check evening bmp to monitor electrolytes including na level--as discussed with RN to pass to assistant shift supervisor--goal na on check is 130 or less if higher contact night physican to see if reversal is appropriate (3) Alcohol abuse Current Visit: Yes Status: Acute Assessment and Plan: CIWA protocol. no s/s of etoh w/d at this time Monitor for Withdrawal. Banana bag, multivitamins. (4) Hypokalemia Current Visit: Yes Status: Acute Assessment and Plan: K + with oral repletion today for total of 60 meq, repeat K level this evening EKG 05/23 is nsr,and unremarkable for acutechanges (5) Hypomagnesemia Current Visit: Yes Status: Acute Assessment and Plan: Iv repletion today for mag 1.4 and repeat level later today DVT Prophylaxis: heparin sq - Time Spent with Patient Total time spent is greater than 50% in coordination of care (as documented) at patient's floor/unit and/or counseling patient: 25 - 35 minutes Plan of Care Discussed with: patient Internal Medicine: Result - Labs CBC & Chem 7: 05/23/18 03:46 05/24/18 08:53 Labs: BMP 05/23/18 19:57 Sodium 126 L Potassium 3.4 L Chloride 98 Carbon Dioxide 24 BUN 5 L Creatinine 0.34 L Glucose 104 Calcium 8.5 L - ABG Interpretation ABG results: PT/INR, D-dimer PT 12.3 Seconds (9.4-12.1) H 05/22/18 20:17 Consult Discharge Plan - Plan Referrals: Kelly Rojas MD [Primary Care Provider] - (1) Dislocation of left hip Qualifiers: Encounter type: initial encounter Qualified Code(s): S73.005A - Unspecified dislocation of left hip, initial encounter
[2018-05-24] MEDS: *HR* Heparin 5,000 UNIT/ML VIAL SQ SCH ×3 (09:24→20:55)
[2018-05-24 10:16] LABS: BUN/Creatinine Ratio 13 (6-26); Blood Urea Nitrogen 4 mg/dL (6-20); Calcium 8.8 mg/dL (8.6-10.3); Carbon Dioxide 24 mEq/L (23-29); Chloride 98 mEq/L (98-107); Glucose 117 mg/dL (70-105); Osmolality,Calculated 260 (280-300); Potassium 3.3 mEq/L (3.5-5.1); Sodium 126 mEq/L (136-145); eGFR For Non-African Americans > 60 (> 60)
[2018-05-24] MEDS: Thiamine (B-1) 100 MG, Folic Acid 1 MG, MVI, adult with vitamin K 10 ML in 0.9 % Sodi... IVPB SCH (17:21)
[2018-05-24 20:49] LABS: BUN/Creatinine Ratio 16 (6-26); Blood Urea Nitrogen 5 mg/dL (6-20); Calcium 8.5 mg/dL (8.6-10.3); Carbon Dioxide 23 mEq/L (23-29); Chloride 98 mEq/L (98-107); Glucose 111 mg/dL (70-105); Osmolality,Calculated 258 (280-300); Sodium 125 mEq/L (136-145); eGFR For Non-African Americans > 60 (> 60)
--- NOTE | 2018-05-24 21:21 | Orthopedics Progress Note ---
Date of Encounter: 05/24/18 Time of Encounter: 21:20 Subjective Principal diagnosis: Left hip dislocation Interval history: Patient has plan for revision/reduction for left hip dislocation. Patient is comfortable in bed. Afebrile vital signs are stable. Left lower extremity is shortened. She is neurovascularly intact with regard to bilateral lower extremities. Usual preoperative preparations performed. We will plan on surgery May [address] Eli. Objective Vital signs: Vital Signs Temp Pulse Resp BP Pulse Ox 05/24/18 19:15 98.0 F 90 16 118/71 95 05/24/18 15:18 98.8 F 85 16 105/69 97 05/24/18 10:53 98.8 F 125 18 130/71 95 05/24/18 08:25 93 05/24/18 08:00 98.1 F 119 18 119/74 93 05/24/18 04:28 98.9 F 81 17 116/70 94 05/23/18 23:52 98.2 F 84 16 128/79 93 Intake and Output 05/24/18 05/24/18 05/24/18 07:59 15:59 23:59 Intake Total 800 / 800 600 / 600 Output Total 1100 / 1100 850 / 850 Balance -300 / -300 -250 / -250 Intake: Oral 800 / 800 600 / 600 Output: Urine 500 / 500 Catheter 600 / 600 850 / 850 Other: Meal Lunch Dinner Percent of Meal Consumed 100% 100% Weight 43.1 kg Patient Weight 05/24/18 23:59 Weight 43.1 kg - Labs CBC & BMP: 05/23/18 03:46 05/24/18 20:00 Labs: Abnormal lab results RBC 3.70 M/mcL (3.82-4.97) L 05/23/18 03:46 Hgb 11.2 g/dL (11.5-15.4) L 05/23/18 03:46 Hct 33.1 % (35.3-44.9) L 05/23/18 03:46 RDW 17.2 % (11.5-14.5) H 05/23/18 03:46 MPV 8.7 fL (9.4-12.4) L 05/23/18 03:46 PT 12.3 Seconds (9.4-12.1) H 05/22/18 20:17 Sodium 125 mEq/L (136-145) L 05/24/18 20:00 BUN 5 mg/dL (6-20) L 05/24/18 20:00 Creatinine 0.32 mg/dL (0.60-1.20) L 05/24/18 20:00 Glucose 111 mg/dL (70-105) H 05/24/18 20:00 Calculated Osmolality 258 (280-300) L 05/24/18 20:00 Calcium 8.5 mg/dL (8.6-10.3) L 05/24/18 20:00 Consult Discharge Plan - Plan Referrals: Kelly Rojas MD [Primary Care Provider] -
[2018-05-25 02:00] LABS: Basophils % 0.6 %; Eosinophils # 0.1 K/mcL (0.0-0.6); Eosinophils % 2.2 %; Hematocrit 33.2 % (35.3-44.9); Hemoglobin 11.1 g/dL (11.5-15.4); Immature Granulocytes % 0.5 % (0-4); Lymphocytes # 1.6 K/mcL (0.6-4.6); Lymphocytes % 24.1 %; Mean Corpuscular HGB Conc 33.4 g/dL (31.6-35.5); Mean Corpuscular Hemoglobin 31.3 pg (28.0-33.3); Mean Corpuscular Volume 93.5 fL (83.0-100.0); Mean Platelet Volume 9.2 fL (9.4-12.4); Monocytes # 0.9 K/mcL (0.0-1.3); Monocytes % 13.3 %; Neutrophils # 3.8 K/mcL (1.6-8.9); Platelet Count 309 K/mcL (140-400); Red Blood Count 3.55 M/mcL (3.82-4.97); Red Cell Distribution Width 16.9 % (11.5-14.5); Segmented Neutrophils % 59.3 %
[2018-05-25 02:06] LABS: INR 1.1; Prothrombin Time 12.3 Seconds (9.4-12.1)
[2018-05-25 02:21] LABS: BUN/Creatinine Ratio 13 (6-26); Blood Urea Nitrogen 4 mg/dL (6-20); Calcium 8.6 mg/dL (8.6-10.3); Carbon Dioxide 25 mEq/L (23-29); Chloride 99 mEq/L (98-107); Glucose 103 mg/dL (70-105); Magnesium 1.6 mg/dL (1.6-2.6); Osmolality,Calculated 265 (280-300); Potassium 3.6 mEq/L (3.5-5.1); Sodium 129 mEq/L (136-145); eGFR For Non-African Americans > 60 (> 60)
[2018-05-25] MEDS: *HR* Heparin 5,000 UNIT/ML VIAL SQ SCH ×3 (04:46→21:08)
[2018-05-25] MEDS: OXYCODONE Oral CONC 10 MG/0.5 ML ORAL.SYG SL PRN ×2 (06:45→21:08)
--- NOTE | 2018-05-25 07:47 | Orthopedics Progress Note ---
Date of Encounter: 05/25/18 Time of Encounter: 07:45 Subjective Principal diagnosis: Left hip dislocation Interval history: Patient seen this morning for left hip dislocation, patient was treated with a total hip replacement for fracture. Patient states that she was noncompliant with restrictions when the hip popped out of socket. Multiple times in the ER found the hip to be relocatable but unstable. Patient was admitted for revision. Patient's total hip was done for proximal femur fracture, concern for stability of the femoral implant this part of the working diagnosis. Based on this information special equipment needed to be ordered, patient seen this morning neurovascular intact plan reviewed further revision left hip. Possible revision of femoral component versus constrained liner as well. We reviewed the risks and benefits as well as recovery. All questions were answered. The patient agreed to this treatment plan and appeared to understand the plan is reviewed. Objective Vital signs: Vital Signs Temp Pulse Resp BP Pulse Ox 05/25/18 06:42 98.7 F 85 16 132/78 94 05/25/18 04:09 99.0 F 86 18 118/74 95 05/24/18 23:26 98.1 F 83 16 115/65 96 05/24/18 19:15 98.0 F 90 16 118/71 95 05/24/18 15:18 98.8 F 85 16 105/69 97 05/24/18 10:53 98.8 F 125 18 130/71 95 05/24/18 08:25 93 05/24/18 08:00 98.1 F 119 18 119/74 93 Intake and Output 05/24/18 05/24/18 05/25/18 15:59 23:59 07:59 Intake Total 800 / 800 1111.2 / 1111.2 0 / 0 Output Total 1100 / 1100 1750 / 1750 700 / 700 Balance -300 / -300 -638.8 / -638.8 -700 / -700 Intake: IV Fluids 511.2 / 511.2 Vitamin B-1 100 MG Folvite 1 MG 511.2 / 511.2 M.v.i. Adult 10 ml In 0.9 % Sodium Chloride 500 ML @ 85.2 mls/hr IVPB DAILY@1800 [facility] Rx#: [id number] Oral 800 / 800 600 / 600 0 / 0 Output: Urine 500 / 500 Catheter 600 / 600 1750 / 1750 700 / 700 Other: Meal Lunch Dinner Percent of Meal Consumed 100% 100% Weight 44.14 kg Patient Weight 05/25/18 23:59 Weight 44.14 kg - Labs CBC & BMP: 05/25/18 00:55 05/25/18 00:55 Labs: Abnormal lab results RBC 3.55 M/mcL (3.82-4.97) L 05/25/18 00:55 Hgb 11.1 g/dL (11.5-15.4) L 05/25/18 00:55 Hct 33.2 % (35.3-44.9) L 05/25/18 00:55 RDW 16.9 % (11.5-14.5) H 05/25/18 00:55 MPV 9.2 fL (9.4-12.4) L 05/25/18 00:55 PT 12.3 Seconds (9.4-12.1) H 05/25/18 00:55 Sodium 129 mEq/L (136-145) L 05/25/18 00:55 BUN 4 mg/dL (6-20) L 05/25/18 00:55 Creatinine 0.31 mg/dL (0.60-1.20) L 05/25/18 00:55 Calculated Osmolality 265 (280-300) L 05/25/18 00:55 Consult Discharge Plan - Plan Referrals: Kelly Rojas MD [Primary Care Provider] -
--- NOTE | 2018-05-25 09:48 | Internal Med Progress Note ---
Hospitalist Progress Note - Encounter Date of Encounter: 05/25/18 Time of Encounter: 08:15 - Subjective Interval History: awake, pain tolerable, resting comfortably currently. awaiting OR. no cp, pressure, sob, cough, fevers or chills. - Exam Vitals: Temp Pulse Resp BP Pulse Ox 98.7 F 85 16 132/78 94 05/25/18 06:42 05/25/18 06:42 05/25/18 06:42 05/25/18 06:42 05/25/18 06:42 Exam: General: awake, alert, appears stated age Cardiovascular:regular rate and rhythm, normal S1 & S2, murmurs no lower extremity edema, dp/pt pulses intact and equal Lungs:Normal breath sounds, no wheezes, or crackles. Normal respiratory effort on ra Abdomen:Soft, non-tender, non-distended, + bowel sounds MSK: left leg shortening and ext hip rotation Neurological: AAOx3 - Assessment and Plan (1) Dislocation of left hip Current Visit: Yes Status: Acute Assessment and Plan: 2/2 to pt bending to put socks on 1 week postop left hip repair by Dr. Eli As evidenced by hip x-ray. Dr. Eli following Pain control as needed. OR 05/25 for implant revision -post op care as per ortho -pt/ot/sw to be ordered once post op and not bedrest (2) Hyponatremia Current Visit: No Status: Chronic Assessment and Plan: History of hyponatremia, on sodium tablets at home No cognitive deficits Follows with nephro outpt Sodium level 124- Had similar presentation at last admission when she presented for left hip fracture originally, but level was 112. She was started on IV fluids, and corrected too fast. Nephro followed and increased sodium tabs Na has been stable and near her prior levels last discharge 125-126 -cont home sodium tabs -correcting at appropriate rate, do not believe she was taking them at home -will check a post op bmp as she will possiblly receive NS IVFs intra/post op (3) Alcohol abuse Current Visit: Yes Status: Acute Assessment and Plan: CIWA protocol. no s/s of etoh w/d at this time Monitor for Withdrawal. Banana bag, multivitamins x3 doses then may begin po (4) Hypokalemia Current Visit: Yes Status: Acute Assessment and Plan: K+ 3.2, resolved with PO repletion -cont to monitor -repleting mag EKG 05/23 is nsr,and unremarkable for acute changes (5) Hypomagnesemia Current Visit: Yes Status: Acute Assessment and Plan: improved with IV repletion IV mag -would benefit from daily po mag as low mag was a problem last admission as well DVT Prophylaxis: heparin sq - Time Spent with Patient Total time spent is greater than 50% in coordination of care (as documented) at patient's floor/unit and/or counseling patient: 25 - 35 minutes Internal Medicine: Result - Labs CBC & Chem 7: 05/25/18 00:55 05/25/18 00:55 Labs: Short CBC 05/25/18 Range/Units 00:55 WBC 6.5 (4.3-11.1) K/mcL Hgb 11.1 L (11.5-15.4) g/dL Hct 33.2 L (35.3-44.9) % Plt Count 309 (140-400) K/mcL Neutrophils # 3.8 (1.6-8.9) K/mcL BMP 05/24/18 05/24/18 05/25/18 08:53 20:00 00:55 Sodium 126 L 125 L 129 L Potassium 3.3 L 4.0 3.6 Chloride 98 98 99 Carbon Dioxide 24 23 25 BUN 4 L 5 L 4 L Creatinine 0.30 L 0.32 L 0.31 L Glucose 117 H 111 H 103 Calcium 8.8 8.5 L 8.6 - ABG Interpretation ABG results: PT/INR, D-dimer PT 12.3 Seconds (9.4-12.1) H 05/25/18 00:55 Consult Discharge Plan - Plan Referrals: Kelly Rojas MD [Primary Care Provider] - (1) Dislocation of left hip Qualifiers: Encounter type: initial encounter Qualified Code(s): S73.005A - Unspecified dislocation of left hip, initial encounter
[2018-05-25] MEDS ORDERED: ROPIVACAINE HCL/PF 0.5% 30 ML VIAL ONE (15:28)
[2018-05-25] MEDS ORDERED: Acetaminophen IV 1,000 MG/100 ML INFUS..BTL ONE (15:28)
--- NOTE | 2018-05-25 15:31 | Anesthesia Evaluation PreOp ---
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 [Rx] Cyanocobalamin (B-12) [Vitamin B12] 1,000 mcg PO DAILY 30 Days #30 tablet [Rx] Docusate [Colace] 100 mg PO BID 7 Days #14 capsule 05/08/18 [Rx] Folic Acid 1 mg PO DAILY tablet 05/08/18 [Rx] Sodium Chloride [Sodium Chloride Tab] 1 gm PO BID 14 Days #28 tablet 05/08/18 [ Rx] Thiamine (B-1) [Vitamin B-1] 100 mg PO DAILY tablet 05/08/18 [Rx] OxyCODONE Immed Rel [Roxicodone 5 MG] 5 mg PO Q6HR PRN 05/23/18 [History] 3 Allergy/AdvReac Type Severity Reaction Status Date / Time No Known Allergies Allergy Verified 05/03/18 16:01 - Meds/Allergy Pre-op Review Medications Reviewed: Yes Allergies Reviewed: Yes Beta Blockers on Current Med List: No Anesthesia Results - Labs 05/25/18 00:55 05/25/18 00:55 - Imaging EKG: report reviewed (normal sinus rhythm) Anesthesia Exam Selected Entries 05/25/18 15:00 Temperature 99.2 F Pulse Rate 76 Respiratory Rate 16 Blood Pressure 123/72 Weight: 44 kg NPO (# of Hours): over 8 hours - HEENT Pupil (Motor): Pupils equal Mallampati: II Teeth: Edentulous Oral Opening: Greater than 3 - RUBBER CALENDER HELPER LOC: Oriented - Cardiac Rhythm: Regular Murmur: None - Pulmonary Breath Sounds: bilateral Clear Respiratory Effort: Symmetrical Anesthesia Assess/Plan ASA Score: 3 Modified Blacklick Scale for Level of Consciousness: Cooperative, oriented, and tranquil Anesthetic Plan: General Recovery Plan: PACU (Discussed GA and block for post operative pain relief, risks. Agreed to proceed.)
[2018-05-25] MEDS ORDERED: Ethanol\\Acetic Acid\\Na Ace\\Ben 1,000 ML IRRIG.SOLN IR ONE (15:44)
[2018-05-25] MEDS ORDERED: *HR* Midazolam HCl 2 MG/2 ML VIAL ONE (15:45)
[2018-05-25] MEDS ORDERED: *HR* FentaNYL (PF) 100 MCG/2 ML VIAL ONE (15:45)
[2018-05-25] MEDS ORDERED: CEFAZOLIN SODIUM IVPB ONE (15:48)
[2018-05-25] MEDS ORDERED: SODIUM CHLORIDE 0.9% IVPB ONE (15:48)
--- NOTE | 2018-05-25 16:08 | Anesthesia Procedures ---
Date of Encounter: 05/25/18 Time of Encounter: 16:06 Procedures: Anesthesia - Nerve Block Procedure Date: 05/25/18 Time: 16:06 Allergies/Adv Reactions: nka Pre-op Diagnosis: left hip fx Surgical Procedure: left hip rev Checklist: Correct Patient Identifier, Correct procedure, History checked Correct side: Left Blood Thinner: No Monitor Applied: EKG, BP, Pulse Oximetry Supplemental Oxygen via Nasal Cannula (L/min): 2 Sedation: Versed (mg): 2 Sedation: Fentanyl (mcg): 100 Indication: Post Op Analgesia Pre-op Neuro Deficits: No Block Type: Other (fascia iliaca) Catheter placed: No Sterile Technique: Yes Ultrasound used: Yes Anatomy identified: Yes Visual spread of Local: Yes Neuro Stimulation: No Blood on Needle Aspiration: No Smooth Injection of Local: Yes Pain with Injection of Local: No Prep: Chlorhexadine Needle: 21 x 100 mm Stimuplex (echogenic) Local: Ropivacaine (0.25%), Other (decadron 10mg, 2% lido 4ml) Volume (cc): 60 Number of Attempts: 1 Complications: None/effective block Vitals: Vital Signs/O2 Sat/Glucose, Most Recent Temp Pulse Resp BP Pulse Ox 99.2 F 73 14 121/67 98 05/25/18 15:00 05/25/18 16:03 05/25/18 16:03 05/25/18 16:03 05/25/18 16:03
[2018-05-25] MEDS ORDERED: *HR* HYDROmorphone (PF) 1 MG/ML SYRINGE IVP PRN ×2 (16:17→18:52)
[2018-05-25] MEDS ORDERED: *HR* OxyCODONE/APAP 5/325 TABLET PO PRN ×2 (16:17→18:52)
[2018-05-25] MEDS ORDERED: *HR* Promethazine 25 MG/ML VIAL IVP PRN ×3 (16:17→18:52)
[2018-05-25] MEDS ORDERED: Ondansetron 4 MG/2 ML VIAL IVP ONE ×2 (16:17→18:52)
[2018-05-25] MEDS ORDERED: EPHEDrine 50 MG/ML VIAL ONE (17:16)
[2018-05-25] MEDS ORDERED: *HR* Meperidine 25 MG/ML SYRINGE IVP PRN (17:25)
[2018-05-25] MEDS ORDERED: *HR* OxyCODONE Immed Rel 5 MG TABLET PO PRN (17:25)
--- NOTE | 2018-05-25 17:33 | Electrocardiograph Report ---
[place] [address] Test Date: 2018-05-23 Pat Name: Pam Rao Department: 114 Room: [facility] Gender: F Loan Representative: LEONILA : 1960 Requested By: Haleigh Manzo Order Number: [id number] Reading MD: Nereida Tijerina Measurements Intervals [place] Rate: 87 P: 45 AK: 199 QRS: 57 QRSD: 80 T: 62 QT: 364 QTc: 408 Interpretive Statements SINUS RHYTHM BASELINE ARTIFACT Electronically Signed On 05-25-2018 17:31:56 EDT by Nereida Tijerina
[2018-05-25] MEDS ORDERED: Ketorolac 30 MG/ML VIAL ONE (17:41)
--- NOTE | 2018-05-25 17:48 | Electrocardiograph Report ---
[address] [place] [address] Test Date: 2018-05-22 Pat Name: Pam Rao Department: EXAMC1 Room: [facility] Gender: F Recreation Counselor: : 1960 Requested By: Pam Uriarte Order Number: [id number] Reading MD: Nereida Tijerina Measurements Intervals [place] Rate: 78 P: 68 DC: 193 QRS: 74 QRSD: 104 T: 73 QT: 428 QTc: 488 Interpretive Statements Sinus rhythm Consider anterior infarct Nonspecific ST abnormalities Electronically Signed On 05-25-2018 17:46:34 EDT by Nereida Tijerina
--- NOTE | 2018-05-25 17:57 | Orthopedic Operative Note ---
Date of procedure: 05/25/18 Pre-op diagnosis: Dislocated, Unstable left total hip replacement Post-op diagnosis: same Procedure: Procedure: Left revision oTotal Hip Replacment Estimated blood loss: 200 cc Hardware: [place] 0 degree 52 cup constrain liner, nondenominational modular 16 x 155 stem, 21+10 cone body, 22+0 head Metal and polyethylene replacement. Procedural Notes: Dislocated left total hip, continued unstable after reduction in the ER. Operative procedure: The patient was brought to the operating room and placed on the operating room table. After general anesthesia was administered the patient was placed in the lateral decubitus position with the operative leg up. All pressure points were padded appropriately and the head was stabilized in the neutral position. The operative extremity was prepped and draped in the sterile surgical fashion patient received IV antibiotic prior to skin incision. A standard posterior approach is made to the operative hip, through the old incision. The incision was made through the skin and subcutaneous tissue hemostasis was obtained with Bovie cautery. Using careful sharp dissection the fascia was identified and incised upon entering the fascia hematoma was identified and cultured. This was irrigated out pulse irrigation. The hip was dislocated. The femoral stem was well fixed and in the appropriate 20 degrees of anteversion. Reduction of the hip at this time revealed good stability. Unfortunately the patient's compliance is potentially the mitigating factor. Decision was made to remove the femoral stem which was removed without incident and place a constrained liner. Utilizing the extraction device the metal liner was removed from the acetabular cup. The acetabulum was still well fixed. A 52 0 degree constrain liner was then impacted in place had good fit and fixation. Attention was then turned to preparation of the femur. Hip was brought into internal rotation. The femur was reamed distally to a 16 x 155. A 16 x 155 stem was impacted in place. It was reamed proximally for 21 body. Based on trial reduction with the trials decision was made to proceed with a 21 mm 10 cone body. This was impacted in place in 20 degrees of anteversion. This was locked in place. A +0 22 head was then impacted in place and the hip was reduced patient had excellent motion and stability constrain liner was intact at end ranges. The hips sat with an antibacterial saline solution. It was irrigated out with 2 L of pulse irrigation. The PA close the hip. Fascia was closed with a running #2 PDS suture. The deep tissue was irrigated and closed deep with #1 PDS suture superficially with 0 PDS suture and skin was closed with Dermabond and skin thiago. The patient was placed in a sterile dressing and abduction pillow. The patient was extubated and transferred to the recovery room in stable condition. Anesthesia: GETA Surgeon: Kendell Eli Was there an logging assistant present: No Estimated blood loss (cc): 200 Condition: stable Disposition: PACU
[2018-05-25] MEDS ORDERED: *HR* Morphine 10 MG/ML VIAL ONE (18:04)
--- NOTE | 2018-05-25 18:41 | Anesthesia Evaluation Post Op ---
Date of Encounter: 05/25/18 Time of Encounter: 18:40 - Vital Signs Vital Signs: Selected Entries 05/25/18 18:39 Temperature 99.2 F Pulse Rate 93 Respiratory Rate 16 Blood Pressure 144/83 - Lungs Lungs: Clear Ascult./Percussion - Airway Airway: Non-obstructed - Cardiovascular Regular Rate - Mental Status Mental Status: Alert & Oriented, Answers Appropriately - Nausea Vomiting Nausea Vomiting: Not Present - Hydration Hydration: NPO - Discharge PostOp Status: Transfer Patient to floor
[2018-05-25 18:50] LABS: Hematocrit 37.5 % (35.3-44.9); Hemoglobin 12.4 g/dL (11.5-15.4)
[2018-05-25] MEDS ORDERED: Naloxone 0.4 MG/ML INJ IVP PRN (18:52)
[2018-05-25] MEDS ORDERED: Ringers Solution, Lactated 1,000 ML IVC SCH (18:52)
[2018-05-25] MEDS ORDERED: Sennosides 8.6 MG TABLET PO PRN (18:52)
[2018-05-25] MEDS ORDERED: MOM Conc 10 ML UD.LIQ PO PRN (18:52)
[2018-05-25] MEDS ORDERED: OXYCODONE Oral CONC 10 MG/0.5 ML ORAL.SYG SL PRN (18:52)
[2018-05-25] MEDS ORDERED: Ondansetron 4 MG/2 ML VIAL IVP PRN (18:52)
[2018-05-25] MEDS ORDERED: Temazepam 15 MG CAPSULE PO PRN (18:52)
[2018-05-25] MEDS ORDERED: *HR* LORazepam 2 MG/ML VIAL IVP PRN ×3 (18:52)
[2018-05-26 01:52] LABS: Hematocrit 32.2 % (35.3-44.9)
[2018-05-26 01:53] LABS: Hemoglobin 10.6 g/dL (11.5-15.4)
[2018-05-26] MEDS: OXYCODONE Oral CONC 10 MG/0.5 ML ORAL.SYG SL PRN (03:19)
--- NOTE | 2018-05-26 06:19 | Orthopedics Progress Note ---
Date of Encounter: 05/26/18 Time of Encounter: 06:18 Subjective Principal diagnosis: Left hip dislocation Interval history: Patient was seen this morning doing well without complaints. Afebrile vital signs stable. Operative extremity: Neurovascularly intact Dressing clean dry and intact Calves nontender Assessment and plan: Continue with postoperative care Hematocrit 32.2. Objective Vital signs: Vital Signs Temp Pulse Resp BP Pulse Ox 05/26/18 03:44 97.6 F 81 18 120/73 100 05/25/18 23:37 98.7 F 86 14 116/75 96 05/25/18 22:16 98 F 92 16 99/60 97 05/25/18 21:03 97.9 F 99 16 106/71 98 05/25/18 20:03 98.6 F 130 16 122/77 96 05/25/18 19:30 98.6 F 103 16 115/67 99 05/25/18 19:04 97.6 F 92 15 124/52 95 05/25/18 18:49 99.2 F 87 16 151/79 95 05/25/18 18:39 99.2 F 93 16 144/83 99 05/25/18 18:29 98.5 F 99 16 145/84 99 05/25/18 18:19 99.1 F 87 14 134/71 97 05/25/18 16:45 68 15 115/67 99 05/25/18 16:32 69 14 126/67 99 05/25/18 16:18 70 13 136/69 100 05/25/18 16:03 73 14 121/67 98 05/25/18 15:55 75 14 97 05/25/18 15:00 99.2 F 76 16 123/72 96 05/25/18 12:12 95 05/25/18 10:45 98.8 F 85 18 120/69 95 05/25/18 06:42 98.7 F 85 16 132/78 94 Intake and Output 05/25/18 05/25/18 05/26/18 15:59 23:59 07:59 Intake Total 104 / 104 0 / 0 300 / 300 Output Total 600 / 600 1000 / 1000 375 / 375 Balance -496 / -496 -1000 / -1000 -75 / -75 Intake: IV Fluids 104 / 104 100 / 100 Ancef 2,000 MG In 0.9 % Sodium 100 / 100 Chloride 100 ML @ 200 mls/hr IVPB Q8HR [facility] Rx#:[id number] Oral 0 / 0 200 / 200 Output: Urine 250 / 250 375 / 375 Estimated Blood Loss 200 / 200 Urine Amount (Catheter) 300 / 300 Catheter 350 / 350 500 / 500 Other: Weight 44.3 kg Patient Weight 05/26/18 23:59 Weight 44.3 kg - Labs CBC & BMP: 05/26/18 01:06 05/25/18 00:55 Labs: Abnormal lab results RBC 3.55 M/mcL (3.82-4.97) L 05/25/18 00:55 Hgb 10.6 g/dL (11.5-15.4) L D 05/26/18 01:06 Hct 32.2 % (35.3-44.9) L 05/26/18 01:06 RDW 16.9 % (11.5-14.5) H 05/25/18 00:55 MPV 9.2 fL (9.4-12.4) L 05/25/18 00:55 PT 12.3 Seconds (9.4-12.1) H 05/25/18 00:55 Sodium 129 mEq/L (136-145) L 05/25/18 00:55 BUN 4 mg/dL (6-20) L 05/25/18 00:55 Creatinine 0.31 mg/dL (0.60-1.20) L 05/25/18 00:55 Calculated Osmolality 265 (280-300) L 05/25/18 00:55 Consult Discharge Plan - Plan Referrals: Kelly Rojas MD [Primary Care Provider] -
[2018-05-26] MEDS: *HR* Heparin 5,000 UNIT/ML VIAL SQ SCH ×3 (06:20→20:30)
[2018-05-26] MEDS: Magnesium Oxide 400 MG TABLET PO SCH (07:40)
[2018-05-26] MEDS: Ascorbic Acid 500 MG TABLET PO SCH ×2 (07:41→18:04)
[2018-05-26] MEDS ORDERED: Thiamine (B-1) 100 MG TABLET PO SCH (09:00)
[2018-05-26] MEDS ORDERED: Folic Acid 1 MG TABLET PO SCH (09:00)
[2018-05-26] MEDS ORDERED: Vitamin B Complex/Vit C/Vit E 1 EACH TABLET PO SCH ×2 (09:00)
[2018-05-26] MEDS ORDERED: Magnesium Oxide 400 MG TABLET PO SCH (09:00)
--- NOTE | 2018-05-26 10:19 | Internal Med Progress Note ---
Hospitalist Progress Note - Encounter Date of Encounter: 05/26/18 Time of Encounter: 10:19 - Subjective Interval History: No acute events overnight. Patient reports that she feels warm at one point overnight. Tmax in past 24 hrs is 99.2. She denies chest pain, shortness of breath, lower extremity swelling. Does have expected post-op pain. - Exam Vitals: Temp Pulse Resp BP Pulse Ox 98.3 F 116 17 107/65 96 05/26/18 07:19 05/26/18 07:19 05/26/18 07:19 05/26/18 07:19 05/26/18 07:19 Exam: General: AAOx3 Cardiovascular:regular rate and rhythm, normal S1 & S2, murmurs no lower extremity edema, dp/pt pulses intact and equal Lungs:Normal breath sounds, no wheezes, or crackles. Abdomen:Soft, non-tender, non-distended, + bowel sounds MSK: Left leg in cast, normal sensation. Limited exam post-op. Neurological: AAOx3 - Assessment and Plan (1) Dislocation of left hip Current Visit: Yes Status: Acute Assessment and Plan: 2/2 to pt bending to put socks on 1 week postop left hip repair by Dr. Eli As evidenced by hip x-ray. Pain control as needed. POD #1 s/p 05/25 for implant revision -post op care as per ortho -pt/ot/sw to be ordered once post op and not bedrest (2) Hyponatremia Current Visit: No Status: Chronic Assessment and Plan: History of hyponatremia, on sodium tablets at home No cognitive deficits Follows with nephro outpt Sodium level 124- Had similar presentation at last admission when she presented for left hip fracture originally, but level was 112. She was started on IV fluids, and corrected too fast. Nephro followed and increased sodium tabs Na has been stable and near her prior levels last discharge 125-126 -cont home sodium tabs -correcting at appropriate rate, do not believe she was taking them at home -will check a post op bmp as she will possiblly receive IVFs intra/post op 05/26: No labs done this AM will recheck tomorrow. Continue sodium chloride tabs 1gm PO BID home dose. Will hold for now and monitor while she restarts Cardiac diet. (3) Alcohol abuse Current Visit: Yes Status: Acute Assessment and Plan: CIWA protocol. no s/s of etoh w/d at this time Monitor for Withdrawal. Banana bag, multivitamins x3 doses then may begin po Continue PO thiamine, folic acid (4) Hypokalemia Current Visit: Yes Status: Acute Assessment and Plan: K+ 3.2, resolved with PO repletion -cont to monitor -repleting mag EKG 05/23 is nsr,and unremarkable for acute changes recheck BMP 05/27 (5) Hypomagnesemia Current Visit: Yes Status: Acute Assessment and Plan: improved with IV repletion IV mag -would benefit from daily po mag as low mag was a problem last admission as well - Time Spent with Patient Total time spent is greater than 50% in coordination of care (as documented) at patient's floor/unit and/or counseling patient: Internal Medicine: Result - Labs CBC & Chem 7: 05/26/18 01:06 05/25/18 00:55 Labs: Short CBC 05/25/18 05/26/18 Range/Units 18:39 01:06 Hgb 12.4 10.6 L D (11.5-15.4) g/dL Hct 37.5 32.2 L (35.3-44.9) % - ABG Interpretation ABG results: PT/INR, D-dimer PT 12.3 Seconds (9.4-12.1) H 05/25/18 00:55 - Impressions Impressions Hip X-Ray 05/25/18 17:14 IMPRESSION: Revision of left hip arthroplasty from prior imaging. No current evidence of prosthesis dislocation. D/ / Hal Slater MD / Hal Slater MD Interpreting Provider: Hal Slater MD Consult Discharge Plan - Plan Referrals: Kelly Rojas MD [Primary Care Provider] - (1) Dislocation of left hip Qualifiers: Encounter type: initial encounter Qualified Code(s): S73.005A - Unspecified dislocation of left hip, initial encounter
--- NOTE | 2018-05-26 12:28 | Event Note ---
Date of Encounter: 05/26/18 Time of Encounter: 12:28 PCR - POD#1 - Left THR-revision. Patient seen at bedside, without complaints. A&O x 3 Afebrile, vital signs stable. Vital Signs Temp Pulse Resp BP Pulse Ox 05/26/18 20:38 94 05/26/18 20:00 99.1 F 104 19 117/68 95 05/26/18 16:35 97.7 F 90 18 119/62 94 05/26/18 11:20 97.6 F 84 17 133/75 98 05/26/18 09:23 96 05/26/18 07:19 98.3 F 116 17 107/65 96 05/26/18 03:44 97.6 F 81 18 120/73 100 05/25/18 23:37 98.7 F 86 14 116/75 96 Intake and Output 05/26/18 05/26/18 05/26/18 07:59 15:59 23:59 Intake Total 300 / 300 480 / 480 240 / 240 Output Total 625 / 625 1200 / 1200 150 / 150 Balance -325 / -325 -720 / -720 90 / 90 Intake: IV Fluids 100 / 100 Ancef 2,000 MG In 0.9 % Sodium 100 / 100 Chloride 100 ML @ 200 mls/hr IVPB Q8HR [facility]ENDING [facility] TO [facility] Rx#:[id number] Oral 200 / 200 480 / 480 240 / 240 Output: Urine 375 / 375 1200 / 1200 150 / 150 Catheter 250 / 250 Other: Meal Lunch Dinner Percent of Meal Consumed 100% 65% # Voids 1 Weight 44.3 kg Patient Weight 05/26/18 23:59 Weight 44.3 kg Labs reviewed. H/H - stable, asymptomatic Short CBC 05/26/18 Range/Units 01:06 Hgb 10.6 L D (11.5-15.4) g/dL Hct 32.2 L (35.3-44.9) % BMP 05/26/18 Range/Units 12:34 Sodium 128 L (136-145) mEq/L Potassium 3.5 (3.5-5.1) mEq/L Chloride 95 L (98-107) mEq/L Carbon Dioxide 27 (23-29) mEq/L BUN 6 (6-20) mg/dL Creatinine 0.36 L (0.60-1.20) mg/dL Glucose 159 H (70-105) mg/dL Calcium 9.1 (8.6-10.3) mg/dL Pain control: adequate Participating in PT. All questions and concerns addressed. Educated on use of incentive spirometer. Encouraged ambulation and proper hydration. Patient educated on post-operative restrictions and post-operative care. Assessment and plan: Continue with postoperative care Discharge plan: Home, discharge in AM. Encourage IS Continue in Knee immobilizer x 6 weeks. WBAT.
[2018-05-26 13:44] LABS: BUN/Creatinine Ratio 17 (6-26); Blood Urea Nitrogen 6 mg/dL (6-20); Calcium 9.1 mg/dL (8.6-10.3); Carbon Dioxide 27 mEq/L (23-29); Chloride 95 mEq/L (98-107); Glucose 159 mg/dL (70-105); Osmolality,Calculated 267 (280-300); Potassium 3.5 mEq/L (3.5-5.1); Sodium 128 mEq/L (136-145); eGFR For Non-African Americans > 60 (> 60)
[2018-05-26] MEDS ORDERED: Thiamine (B-1) 100 MG, Folic Acid 1 MG, MVI, adult with vitamin K 10 ML in 0.9 % Sodi... IVPB SCH (18:00)
[2018-05-27] MEDS: OXYCODONE Oral CONC 10 MG/0.5 ML ORAL.SYG SL PRN (00:11)
[2018-05-27 02:25] LABS: Hematocrit 31.4 % (35.3-44.9); Hemoglobin 10.2 g/dL (11.5-15.4)
[2018-05-27 02:50] LABS: BUN/Creatinine Ratio 13 (6-26); Blood Urea Nitrogen 4 mg/dL (6-20); Calcium 8.4 mg/dL (8.6-10.3); Carbon Dioxide 23 mEq/L (23-29); Chloride 101 mEq/L (98-107); Glucose 91 mg/dL (70-105); Osmolality,Calculated 268 (280-300); Potassium 3.5 mEq/L (3.5-5.1); Sodium 131 mEq/L (136-145); eGFR For Non-African Americans > 60 (> 60)
[2018-05-27] MEDS: *HR* Heparin 5,000 UNIT/ML VIAL SQ SCH (05:54)
[2018-05-27 07:28] VITALS: BP 114/67
--- NOTE | 2018-05-27 07:49 | Orthopedics Progress Note ---
Date of Encounter: 05/27/18 Time of Encounter: 07:48 Subjective Principal diagnosis: Left hip dislocation Interval history: Patient was seen this morning doing well without complaints. Afebrile vital signs stable. Operative extremity: Neurovascularly intact Dressing clean dry and intact Calves nontender Assessment and plan: Continue with postoperative care Stable for discharge Objective Vital signs: Vital Signs Temp Pulse Resp BP Pulse Ox 05/27/18 07:27 98.8 F 87 16 114/67 95 05/27/18 04:00 99.1 F 83 18 110/61 94 05/27/18 00:02 99.4 F 95 17 121/76 95 05/26/18 20:38 94 05/26/18 20:00 99.1 F 104 19 117/68 95 05/26/18 16:35 97.7 F 90 18 119/62 94 05/26/18 11:20 97.6 F 84 17 133/75 98 05/26/18 09:23 96 Intake and Output 05/26/18 05/26/18 05/27/18 15:59 23:59 07:59 Intake Total 480 / 480 240 / 240 511.2 / 511.2 Output Total 1200 / 1200 150 / 150 525 / 525 Balance -720 / -720 90 / 90 -13.8 / -13.8 Intake: IV Fluids 511.2 / 511.2 Vitamin B-1 100 MG Folvite 1 MG 511.2 / 511.2 M.v.i. Adult 10 ml In 0.9 % Sodium Chloride 500 ML @ 85.2 mls/hr IVPB DAILY@1800 [facility] Rx#: [id number] Oral 480 / 480 240 / 240 0 / 0 Output: Urine 1200 / 1200 150 / 150 525 / 525 Other: Meal Lunch Dinner Percent of Meal Consumed 100% 65% # Voids 1 Weight 44.5 kg Patient Weight 05/27/18 23:59 Weight 44.5 kg - Labs CBC & BMP: 05/27/18 01:45 05/27/18 01:45 Labs: Abnormal lab results RBC 3.55 M/mcL (3.82-4.97) L 05/25/18 00:55 Hgb 10.2 g/dL (11.5-15.4) L 05/27/18 01:45 Hct 31.4 % (35.3-44.9) L 05/27/18 01:45 RDW 16.9 % (11.5-14.5) H 05/25/18 00:55 MPV 9.2 fL (9.4-12.4) L 05/25/18 00:55 PT 12.3 Seconds (9.4-12.1) H 05/25/18 00:55 Sodium 131 mEq/L (136-145) L 05/27/18 01:45 BUN 4 mg/dL (6-20) L 05/27/18 01:45 Creatinine 0.31 mg/dL (0.60-1.20) L 05/27/18 01:45 Calculated Osmolality 268 (280-300) L 05/27/18 01:45 Calcium 8.4 mg/dL (8.6-10.3) L 05/27/18 01:45 Consult Discharge Plan - Plan Referrals: Kelly Rojas MD [Primary Care Provider] -
--- NOTE | 2018-05-27 08:26 | Discharge Summary ---
- NOTES TO OUTPATIENT PROVIDER Notes to Outpatient Provider: - Repeat CBC, magnesium, and BMP in 5 days. Possibility that was non-compliant with home sodium chloride tabs, serum sodium was low on admission and improved with IV fluids and then sodium tabs. Re- assess if needs to continue mag ox tabs. Re-assess which vitamin supp tabs to continue taking. Orders not resulted at time of discharge: Pending orders 05/25/18 15:28 US anesthesia pain block [US] Stat 05/25/18 17:56 Culture,Anaerobic [] Routine Culture,Wound [] Routine Date of Encounter: 05/27/18 Time of Encounter: 08:18 - Discharge Diagnosis (1) Dislocation of left hip Priority: Primary Status: Acute Qualifiers: Encounter type: initial encounter Qualified Code(s): S73.005A - Unspecified dislocation of left hip, initial encounter (2) Hyponatremia Priority: Secondary Status: Chronic (3) Alcohol abuse Priority: Secondary Status: Acute (4) Hypokalemia Priority: Secondary Status: Acute (5) Hypomagnesemia Priority: Secondary Status: Acute Hospital course: Ms. Rao is a 57 year old female with history of recent left hip repair one week ago. Patient presented after hearing a pop sensation in left hip with accompanied pain. She came into ER for evaluation with x-ray showing left superior dislocation of the hip. ER was unable to successfully reduce the hip. Dr. Eli was then notified, and requested the patient be admitted for further management. She has history of ETOH abuse and hyponatremia. On admission found to have sodium of 122. She drinks alcohol daily, without any withdrawal symptoms. She is prescribed sodium chloride tablets at home prior to admission. She was given careful IV fluids and salt tabs eventually sodium improved ot 131. Magnesium replaced as well. Ortho Surgery was consulted and she underwent total hip revision. On 05/25/18 she underwent left revision of total hip replacement. Tolerated procedure well. Since patient sodium stable and PT/OT worked with patient she was discharged home in stable condition. Will need repeat labs in 5 days. Discussed importance of alcohol cessation and also medication compliance. - Time Spent with Patient Total time spent providing and/or coordinating discharge services: - Discharge Medications Prescriptions: Ascorbic Acid [Vitamin C] 500 mg PO BIDWM #60 tablet Aspirin Enteric Coated [Aspirin EC] 162 mg PO BID 10 Days #20 tablet. Ferrous Sulfate 325 mg PO BIDWM #60 tablet Magnesium Oxide [Mag-Ox] 400 mg PO DAILY #10 tablet Multivit/Ca/Min/Fe/FA [Thera M Plus] 1 tab PO DAILY #30 tablet Vitamin B Complex/Vit C/Vit E [Stresstab] 1 each PO DAILY #30 tablet Home Medications: Calcium Carbonate/Vitamin D3 [Oyster Shell Calcium-Vit D Tab] 1 tab PO TID 05/03 [History] Cyanocobalamin (B-12) [Vitamin B12] 1,000 mcg PO DAILY 30 Days #30 tablet [Rx] Docusate [Colace] 100 mg PO BID 7 Days #14 capsule 05/08/18 [Rx] Folic Acid 1 mg PO DAILY tablet 05/08/18 [Rx] Sodium Chloride [Sodium Chloride Tab] 1 gm PO BID 14 Days #28 tablet 05/08/18 [ Rx] Thiamine (B-1) [Vitamin B-1] 100 mg PO DAILY tablet 05/08/18 [Rx] OxyCODONE Immed Rel [Roxicodone 5 MG] 5 mg PO Q6HR PRN 05/23/18 [History] Ascorbic Acid [Vitamin C] 500 mg PO BIDWM #60 tablet 05/27/18 [Rx] Aspirin Enteric Coated [Aspirin EC] 162 mg PO BID 10 Days #20 tablet. [Rx] Ferrous Sulfate 325 mg PO BIDWM #60 tablet 05/27/18 [Rx] Magnesium Oxide [Mag-Ox] 400 mg PO DAILY #10 tablet 05/27/18 [Rx] Multivit/Ca/Min/Fe/FA [Thera M Plus] 1 tab PO DAILY #30 tablet 05/27/18 [Rx] Vitamin B Complex/Vit C/Vit E [Stresstab] 1 each PO DAILY #30 tablet 05/27/18 [ Rx] Allergies/Adverse Reactions: 3 Allergy/AdvReac Type Severity Reaction Status Date / Time No Known Allergies Allergy Verified 05/03/18 16:01 Date of admission: 05/23/18 17:39 Primary care physician: Kelly Rojas Consults: 05/25/18 18:52 Consult to Nurse Navigator [CONS] Routine Comment: ortho navigator Consult to Occupational Therapy [CONS] Routine Comment: Evaluate, develop and implement POC Reason for Consult: total hip replacement Does patient have active BEDREST order?: No Is patient medically & hemodynamically stable?: Yes Consult to Physical Therapy [CONS] Routine Comment: Evaluate, develop and implement POC Reason for Consult: total hip replacement Does patient have active BEDREST order?: No Is patient medically & hemodynamically stable?: Yes Consult to Coater Smoking Pipe [CONS] Routine Reason for SW Consult: post op joint replacement RT Post Op Consult [CONS] Routine - Constitutional Vitals: Temp Pulse Resp BP Pulse Ox 98.8 F 87 16 114/67 95 05/27/18 07:27 05/27/18 07:27 05/27/18 07:27 05/27/18 07:27 05/27/18 07:27 General appearance: Present: cooperative, mild distress, A&O X 3, answers questions appropriately Exam: General: AAOx3 Cardiovascular:regular rate and rhythm, normal S1 & S2, murmurs no lower extremity edema, dp/pt pulses intact and equal Lungs:Normal breath sounds, no wheezes, or crackles. Abdomen:Soft, non-tender, non-distended, + bowel sounds MSK: Left leg in cast, normal sensation. Limited exam post-op. Neurological: AAOx3 - Patient Status Disposition: Home Health Service Condition: Good Functional capacity at discharge: wheelchair bound Overall status at discharge: patient is progressing back to baseline - Discharge Instructions Follow Up With: Kelly Rojas MD [Primary Care Provider] - - Diet and Activity Activity: as per physical therapy Diet: advance to your usual diet
--- NOTE | 2018-05-27 08:37 | Physician Discharge Referral ---
Home Health/Hosp Referral Info Transfer to: Home Health Provider in Charge Post Discharge: PCP - Diagnosis (1) Dislocation of left hip Priority: Primary Status: Acute (2) Hyponatremia Priority: Secondary Status: Chronic (3) Alcohol abuse Priority: Secondary Status: Acute (4) Hypokalemia Priority: Secondary Status: Acute (5) Hypomagnesemia Priority: Secondary Status: Acute - Respiratory Orders Smoking Cessation: Smoking cessation has been advised. For more information, call the [place] Tobacco Quit Line at 7-461-GBHT-NOW. - Diet/Nutrition Diet/Nutrition Orders: Regular - Services Needed Following services are medically necessary services: Physical Therapy, Occupational Therapy - Transfer Medications Prescriptions: Ascorbic Acid [Vitamin C] 500 mg PO BIDWM #60 tablet Aspirin Enteric Coated [Aspirin EC] 162 mg PO BID 10 Days #20 tablet. Ferrous Sulfate 325 mg PO BIDWM #60 tablet Magnesium Oxide [Mag-Ox] 400 mg PO DAILY #10 tablet Multivit/Ca/Min/Fe/FA [Thera M Plus] 1 tab PO DAILY #30 tablet Vitamin B Complex/Vit C/Vit E [Stresstab] 1 each PO DAILY #30 tablet Home Medications: Calcium Carbonate/Vitamin D3 [Oyster Shell Calcium-Vit D Tab] 1 tab PO TID 05/03 [History] Cyanocobalamin (B-12) [Vitamin B12] 1,000 mcg PO DAILY 30 Days #30 tablet [Rx] Docusate [Colace] 100 mg PO BID 7 Days #14 capsule 05/08/18 [Rx] Folic Acid 1 mg PO DAILY tablet 05/08/18 [Rx] Sodium Chloride [Sodium Chloride Tab] 1 gm PO BID 14 Days #28 tablet 05/08/18 [ Rx] Thiamine (B-1) [Vitamin B-1] 100 mg PO DAILY tablet 05/08/18 [Rx] OxyCODONE Immed Rel [Roxicodone 5 MG] 5 mg PO Q6HR PRN 05/23/18 [History] Ascorbic Acid [Vitamin C] 500 mg PO BIDWM #60 tablet 05/27/18 [Rx] Aspirin Enteric Coated [Aspirin EC] 162 mg PO BID 10 Days #20 tablet. [Rx] Ferrous Sulfate 325 mg PO BIDWM #60 tablet 05/27/18 [Rx] Magnesium Oxide [Mag-Ox] 400 mg PO DAILY #10 tablet 05/27/18 [Rx] Multivit/Ca/Min/Fe/FA [Thera M Plus] 1 tab PO DAILY #30 tablet 05/27/18 [Rx] Vitamin B Complex/Vit C/Vit E [Stresstab] 1 each PO DAILY #30 tablet 05/27/18 [ Rx] Allergies/Adverse Reactions: 3 Allergy/AdvReac Type Severity Reaction Status Date / Time No Known Allergies Allergy Verified 05/03/18 16:01 Certification: Further, I certify that my clinical findings support that this patient is homebound (i.e. absences from home require considerable and taxing effort and are for medical reasons or mu-ism services or infrequently or short duration when for other reasons) because: Homebound Reason: Post-surgery restriction and or conditions limit ability to leave home Attestation: My signature below is to certify that this patient is under my care and that I, or nurse practitioner, or a physician's department assistant working with me, has a face-to -face encounter with this patient.
[2018-05-27] MEDS ORDERED: Multivit/Ca/Min/Fe/FA 1 TAB TABLET PO SCH (09:00)
[2018-05-27] MEDS ORDERED: Folic Acid 1 MG TABLET PO SCH (09:00)
[2018-05-27] MEDS: Ascorbic Acid 500 MG TABLET PO SCH (09:00)
[2018-05-27] MEDS ORDERED: Vitamin B Complex/Vit C/Vit E 1 EACH TABLET PO SCH (09:00)
[2018-05-27] MEDS ORDERED: Thiamine (B-1) 100 MG TABLET PO SCH (09:00)
[2018-05-27] MEDS: Magnesium Oxide 400 MG TABLET PO SCH (09:01)
== END 2018-05-27 13:33 | disposition home health service (06) | DRG 301 ==
LOC: EMEROOARM 17:51 → 3NENU 17:51 → SUATTDRO 20:35 → 3NENU 21:46
PROVIDERS: ADMIT Family Medicine; ATTEND Internal Medicine

== ENCOUNTER 2020-05-16 21:31 | Inpatient (IN) ==
[2020-05-16] MEDS ORDERED: Folic Acid 1 MG TABLET PO SCH (23:30)
[2020-05-16] MEDS: *HR* LORazepam 2 MG/ML VIAL IVP PRN (23:44)
[2020-05-16] MEDS ORDERED: Thiamine (B-1) 100 MG, Folic Acid 1 MG, MVI, adult with vitamin K 10 ML in 0.9 % Sodi... IVPB SCH (23:45)
[2020-05-17] MEDS ORDERED: Naloxone 0.4 MG/ML INJ IVP PRN (00:04)
[2020-05-17] MEDS ORDERED: Dextrose Gel 15 GM/37.5 ML TUBE PO PRN ×2 (00:18)
[2020-05-17] MEDS ORDERED: D5% in Water 1,000 ML IVC PRN (00:18)
[2020-05-17] MEDS ORDERED: *HR* Dextrose 50 % in Water (Vial) 50 ML VIAL IVP PRN (00:18)
[2020-05-17] MEDS: Vitamin B Complex/Vit C/Vit E 1 EACH TABLET PO SCH ×2 (00:38→09:10)
[2020-05-17] MEDS: Nicotine 14 MG PATCH.TD24 TD SCH (00:40)
[2020-05-17] MEDS ORDERED: 0.9 % Sodium Chloride 1,000 ML IVC SCH ×2 (01:00→20:15)
[2020-05-17 01:24] LABS: Basophils % 0.5 %; Immature Granulocytes % 0.3 % (0-4)
[2020-05-17 01:26] LABS: Eosinophils % 0.3 %; Hematocrit 33.5 % (35.3-44.9); Hemoglobin 11.2 g/dL (11.5-15.4); Immature Platelets 5.8 % (1.1-6.1); Lymphocytes # 1.2 K/mcL (0.6-4.6); Lymphocytes % 19.6 %; Mean Corpuscular HGB Conc 33.4 g/dL (31.6-35.5); Mean Corpuscular Volume 83.8 fL (83.0-100.0); Mean Platelet Volume 9.1 fL (9.4-12.4); Monocytes # 0.5 K/mcL (0.0-1.3); Monocytes % 8.4 %; Neutrophils # 4.3 K/mcL (1.6-8.9); Red Cell Distribution Width 18.3 % (11.5-14.5); Segmented Neutrophils % 70.9 %; White Blood Count 6.1 K/mcL (4.3-11.1)
[2020-05-17 01:28] LABS: Platelet Count 73 K/mcL (140-400)
[2020-05-17 01:46] LABS: Alanine Aminotransferase 18 Units/L (7-52); Albumin 3.4 g/dL (3.5-5.7); Albumin/Globulin Ratio 1.1 (1.1-2.2); Alkaline Phosphatase 90 Units/L (34-104); Aspartate Amino Transferase 46 Units/L (13-39); BUN/Creatinine Ratio 8 (6-26); Bilirubin,Total 0.6 mg/dL (0.3-1.0); Blood Urea Nitrogen 3 mg/dL (8-23); Calcium 8.3 mg/dL (8.6-10.3); Carbon Dioxide 22 mEq/L (23-29); Chloride 98 mEq/L (98-107); Glucose 63 mg/dL (70-105); Magnesium 1.8 mg/dL (1.6-2.6); Osmolality,Calculated 273 (280-300); Phosphorous 2.4 mg/dL (2.7-4.5); Potassium 3.6 mEq/L (3.5-5.1); Sodium 134 mEq/L (136-145); Total Protein 6.4 g/dL (6.4-8.9); eGFR For African Americans > 60 (> 60); eGFR For Non-African Americans > 60 (> 60)
[2020-05-17 01:48] LABS: Troponin I < 0.03 ng/mL (< 0.04)
[2020-05-17 02:02] LABS: Thyroid Stimulating Hormone 1.903 mcIU/mL (0.340-5.600)
[2020-05-17] MEDS: *HR* LORazepam 2 MG/ML VIAL IVP PRN ×3 (05:49→19:55)
[2020-05-17] MEDS ORDERED: Insulin LISPRO 300 UNITS/3 ML VIAL SQ SCH (06:00)
[2020-05-17] MEDS: *HR* Enoxaparin 40 MG/0.4 ML SYRINGE SQ SCH (06:27)
[2020-05-17 07:02] LABS: Amphetamine Screen,Urine Negative ng/mL (Cutoff=1000); Barbiturate Screen,Urine Negative ng/mL (Cutoff=200)
[2020-05-17 07:03] LABS: Benzodiazepines Screen,Urine Positive ng/mL (Cutoff=300); Cannabinoid Screen,Urine Negative ng/mL (Cutoff = 50); Cocaine Screen,Urine Negative ng/mL (Cutoff= 300); Opiate Screen,Urine Negative ng/mL (Cutoff=300); Phencyclidine Screen,Urine Negative ng/mL (Cutoff=25)
[2020-05-17] MEDS ORDERED: Thiamine (B-1) 500 MG in 0.9 % Sodium Chloride 50 ML IVPB SCH (09:00)
[2020-05-17] MEDS ORDERED: Folic Acid 1 MG in 0.9 % Sodium Chloride 50 ML IVPB SCH (09:00)
[2020-05-17] MEDS: cefTRIAXone 1,000 MG in Water for inj. (sterile) 10 ML IVP SCH (09:09)
[2020-05-17] MEDS: Cyanocobalamin (B-12) 1,000 MCG TABLET PO SCH (10:55)
[2020-05-17] MEDS: Cholecalciferol (D-3) 1,000 UNIT (25MCG) TABLET PO SCH (10:55)
[2020-05-17 11:03] LABS: Estimated Average Glucose 103 mg/dl; Hemoglobin A1C 5.2 %
[2020-05-17] MEDS: Folic Acid 1 MG in 0.9 % Sodium Chloride 50 ML IVPB SCH (17:23)
[2020-05-17] MEDS: Thiamine (B-1) 500 MG in 0.9 % Sodium Chloride 50 ML IVPB SCH (17:23)
[2020-05-17] MEDS ORDERED: *HR* LORazepam 2 MG/ML VIAL IVP ONE (18:01)
[2020-05-18] MEDS: Nicotine 14 MG PATCH.TD24 TD SCH (00:41)
[2020-05-18] MEDS: *HR* LORazepam 2 MG/ML VIAL IVP PRN ×3 (00:57→21:20)
[2020-05-18 05:17] LABS: Basophils % 0.8 %; Immature Granulocytes % 0.3 % (0-4); Monocytes % 10.2 %; Red Cell Distribution Width 18.6 % (11.5-14.5)
[2020-05-18 05:19] LABS: Eosinophils % 1.1 %; Hemoglobin 10.7 g/dL (11.5-15.4); Immature Platelets 6.3 % (1.1-6.1); Mean Corpuscular HGB Conc 33.4 g/dL (31.6-35.5); Mean Corpuscular Hemoglobin 28.7 pg (28.0-33.3); Mean Corpuscular Volume 85.8 fL (83.0-100.0); Mean Platelet Volume 10.7 fL (9.4-12.4); Monocytes # 0.4 K/mcL (0.0-1.3); Neutrophils # 2.2 K/mcL (1.6-8.9); Red Blood Count 3.73 M/mcL (3.82-4.97); Segmented Neutrophils % 60.6 %; White Blood Count 3.6 K/mcL (4.3-11.1)
[2020-05-18 05:22] LABS: Platelet Count 55 K/mcL (140-400)
[2020-05-18] MEDS: *HR* Enoxaparin 40 MG/0.4 ML SYRINGE SQ SCH (05:29)
[2020-05-18 07:07] LABS: BUN/Creatinine Ratio 10 (6-26); Blood Urea Nitrogen 3 mg/dL (8-23); Calcium 8.5 mg/dL (8.6-10.3); Carbon Dioxide 27 mEq/L (23-29); Chloride 98 mEq/L (98-107); Glucose 85 mg/dL (70-105); Magnesium 1.3 mg/dL (1.6-2.6); Osmolality,Calculated 274 (280-300); Phosphorous 2.5 mg/dL (2.7-4.5); Potassium 2.9 mEq/L (3.5-5.1); Sodium 134 mEq/L (136-145); eGFR For African Americans > 60 (> 60); eGFR For Non-African Americans > 60 (> 60)
[2020-05-18] MEDS ORDERED: Potassium Chloride 40 MEQ, Lidocaine 1% 2 ML in 0.9 % Sodium Chloride 500 ML IVPB ONE ×2 (07:28→11:45)
[2020-05-18] MEDS: Cyanocobalamin (B-12) 1,000 MCG TABLET PO SCH ×2 (08:51→09:30)
[2020-05-18] MEDS: Cholecalciferol (D-3) 1,000 UNIT (25MCG) TABLET PO SCH ×2 (08:51→09:30)
[2020-05-18] MEDS: cefTRIAXone 1,000 MG in Water for inj. (sterile) 10 ML IVP SCH (08:51)
[2020-05-18] MEDS: Vitamin B Complex/Vit C/Vit E 1 EACH TABLET PO SCH ×2 (08:51→09:29)
[2020-05-18] MEDS: Ondansetron 4 MG/2 ML VIAL IVP PRN ×2 (09:05→21:20)
[2020-05-18] MEDS: 0.9 % Sodium Chloride 1,000 ML IVC SCH (11:47)
[2020-05-18] MEDS: Folic Acid 1 MG in 0.9 % Sodium Chloride 50 ML IVPB SCH (15:09)
[2020-05-18] MEDS: Thiamine (B-1) 500 MG in 0.9 % Sodium Chloride 50 ML IVPB SCH (15:57)
[2020-05-18] MEDS ORDERED: Acetaminophen IV 1,000 MG/100 ML BAG IVPB ONE (21:25)
[2020-05-19] MEDS: Nicotine 14 MG PATCH.TD24 TD SCH (01:45)
[2020-05-19 03:43] LABS: Basophils % 0.5 %; Eosinophils # 0.1 K/mcL (0.0-0.6); Eosinophils % 1.7 %; Hematocrit 34.9 % (35.3-44.9); Hemoglobin 11.4 g/dL (11.5-15.4); Immature Granulocytes % 0.2 % (0-4); Immature Platelets 9.7 % (1.1-6.1); Lymphocytes # 1.2 K/mcL (0.6-4.6); Lymphocytes % 27.9 %; Mean Corpuscular HGB Conc 32.7 g/dL (31.6-35.5); Mean Corpuscular Hemoglobin 27.9 pg (28.0-33.3); Mean Corpuscular Volume 85.5 fL (83.0-100.0); Mean Platelet Volume 11.5 fL (9.4-12.4); Monocytes # 0.4 K/mcL (0.0-1.3); Monocytes % 10.2 %; Neutrophils # 2.5 K/mcL (1.6-8.9); Platelet Count 54 K/mcL (140-400); Red Blood Count 4.08 M/mcL (3.82-4.97); Red Cell Distribution Width 18.6 % (11.5-14.5); Segmented Neutrophils % 59.5 %; White Blood Count 4.2 K/mcL (4.3-11.1)
[2020-05-19 04:01] LABS: Blood Urea Nitrogen < 2 mg/dL (8-23); Calcium 8.5 mg/dL (8.6-10.3); Carbon Dioxide 24 mEq/L (23-29); Chloride 99 mEq/L (98-107); Glucose 102 mg/dL (70-105); Potassium 3.1 mEq/L (3.5-5.1); Sodium 132 mEq/L (136-145); eGFR For African Americans > 60 (> 60); eGFR For Non-African Americans > 60 (> 60)
[2020-05-19 04:04] LABS: % Iron Saturation 14 % (15-50); Iron 39 mcg/dL (50-170); Transferrin 198 mg/dL (203-362)
[2020-05-19 04:21] LABS: Ferritin 77 ng/mL (10-120)
[2020-05-19 04:27] LABS: Folate 15.3 ng/mL (3.0-16.0); Hepatitis B Surface Antigen Nonreactive (Nonreactive)
[2020-05-19 04:55] LABS: Hepatitis C Virus Antibody Nonreactive (Nonreactive)
[2020-05-19 04:56] LABS: Hepatitis B Core IgM Nonreactive (Nonreactive)
[2020-05-19 04:57] LABS: Hepatitis A Antibody IgM Nonreactive (Nonreactive)
[2020-05-19] MEDS: *HR* Enoxaparin 40 MG/0.4 ML SYRINGE SQ SCH (05:20)
[2020-05-19] MEDS: 0.9 % Sodium Chloride 1,000 ML IVC SCH (05:30)
[2020-05-19] MEDS: Ondansetron 4 MG/2 ML VIAL IVP PRN (05:31)
[2020-05-19] MEDS: *HR* LORazepam 2 MG/ML VIAL IVP PRN ×6 (05:31→21:37)
[2020-05-19] MEDS ORDERED: Potassium Chloride Elixir 20 MEQ/15 ML UDC PO ONE (08:07)
[2020-05-19] MEDS: Cyanocobalamin (B-12) 1,000 MCG TABLET PO SCH (09:13)
[2020-05-19] MEDS: Vitamin B Complex/Vit C/Vit E 1 EACH TABLET PO SCH (09:13)
[2020-05-19] MEDS: Cholecalciferol (D-3) 1,000 UNIT (25MCG) TABLET PO SCH (09:13)
[2020-05-19] MEDS: cefTRIAXone 1,000 MG in Water for inj. (sterile) 10 ML IVP SCH (09:13)
[2020-05-19] MEDS ORDERED: Acetaminophen 325 MG TABLET PO PRN (14:43)
[2020-05-19] MEDS: Folic Acid 1 MG in 0.9 % Sodium Chloride 50 ML IVPB SCH (15:04)
[2020-05-19] MEDS: Thiamine (B-1) 500 MG in 0.9 % Sodium Chloride 50 ML IVPB SCH (16:01)
[2020-05-20] MEDS: *HR* LORazepam 2 MG/ML VIAL IVP PRN (01:38)
[2020-05-20] MEDS: Nicotine 14 MG PATCH.TD24 TD SCH (01:39)
[2020-05-20 02:40] LABS: Basophils % 0.7 %
[2020-05-20 02:42] LABS: Eosinophils # 0.1 K/mcL (0.0-0.6); Eosinophils % 1.4 %; Hematocrit 36.9 % (35.3-44.9); Hemoglobin 11.9 g/dL (11.5-15.4); Immature Granulocytes % 0.5 % (0-4); Immature Platelets 8.6 % (1.1-6.1); Lymphocytes # 0.9 K/mcL (0.6-4.6); Lymphocytes % 20.4 %; Mean Corpuscular HGB Conc 32.2 g/dL (31.6-35.5); Mean Corpuscular Hemoglobin 28.6 pg (28.0-33.3); Mean Corpuscular Volume 88.7 fL (83.0-100.0); Mean Platelet Volume 10.8 fL (9.4-12.4); Monocytes # 0.5 K/mcL (0.0-1.3); Monocytes % 10.9 %; Neutrophils # 2.9 K/mcL (1.6-8.9); Platelet Count 63 K/mcL (140-400); Red Blood Count 4.16 M/mcL (3.82-4.97); Red Cell Distribution Width 19.1 % (11.5-14.5); Segmented Neutrophils % 66.1 %; White Blood Count 4.4 K/mcL (4.3-11.1)
[2020-05-20 02:58] LABS: BUN/Creatinine Ratio 13 (6-26); Blood Urea Nitrogen 5 mg/dL (8-23); Calcium 9.1 mg/dL (8.6-10.3); Carbon Dioxide 25 mEq/L (23-29); Chloride 100 mEq/L (98-107); Glucose 114 mg/dL (70-105); Osmolality,Calculated 276 (280-300); Potassium 3.6 mEq/L (3.5-5.1); Sodium 134 mEq/L (136-145); eGFR For African Americans > 60 (> 60); eGFR For Non-African Americans > 60 (> 60)
[2020-05-20] MEDS: *HR* Enoxaparin 40 MG/0.4 ML SYRINGE SQ SCH (05:59)
[2020-05-20] MEDS ORDERED: DiphenhydraMINE CREAM 28.4 GM TUBE TP PRN (06:27)
[2020-05-20] MEDS: cefTRIAXone 1,000 MG in Water for inj. (sterile) 10 ML IVP SCH (08:09)
[2020-05-20] MEDS: Cholecalciferol (D-3) 1,000 UNIT (25MCG) TABLET PO SCH (08:10)
[2020-05-20] MEDS: Cyanocobalamin (B-12) 1,000 MCG TABLET PO SCH (08:11)
[2020-05-20] MEDS: Vitamin B Complex/Vit C/Vit E 1 EACH TABLET PO SCH (08:11)
[2020-05-20 11:04] VITALS: BP 153/88
== END 2020-05-20 15:06 | disposition home or self-care (01) | DRG 775 ==
LOC: 2ANU → SUATTDRO 22:45
PROVIDERS: ADMIT Family Medicine; ATTEND Internal Medicine